=== PATIENT | male | born 1970 | race Caucasian/White ===

== ENCOUNTER 2021-08-02 17:22 | Emergency (ER) | payer MEDICARE, MEDICAID, SELFPAY ==
[2021-08-02 17:33] VITALS: BP 132/91; PULSE 85; RESP 18; TEMP 37.2; O2SAT 98
== END 2021-08-03 01:35 | disposition left against medical advice (07) ==
LOC: ANHED 18:02
PROVIDERS: PCP Internal Medicine
DX: Z53.21 Procedure and treatment not carried out due to patient leaving prior to being seen by health care provider (principal)
CPT/HCPCS: 99199

== ENCOUNTER 2021-08-04 08:37 | Emergency (ER) | payer MEDICARE, MEDICAID, SELFPAY ==
[2021-08-04 08:40] VITALS: BP 101/56; PULSE 63; RESP 18; TEMP 35.6; O2SAT 97
--- NOTE | 2021-08-04 09:42 | ED.NAVMDI ---
HPI - Nausea/Vomiting/Diarrhea General Chief complaint: Nausea/Vomiting/Diarrhea Stated complaint: DIARRHEA Time Seen by Provider: 08/04/21 09:33 Source: patient and old records reviewed Mode of arrival: wheelchair Limitations: no limitations History of Present Illness HPI Narrative: Patient is 50 years old white male presents with diarrhea started 4 days ago, was maximum 3 times a day earlier, yesterday once today nothing so far. Patient denies any fever, chills, nausea, vomiting, abdominal pain., Exposure to anybody have similar symptoms. Related Data Home Medications Medication Instructions Recorded Confirmed ergocalciferol (vitamin D2) 08/04/21 Allergies Allergy/AdvReac Type Severity Reaction Status Date / Time ampicillin Allergy Unknown Hives / Verified 12/17/18 11:51 Red Face Review of Systems Review of Systems: CONSTITUTIONAL: Denies fever, chills, or sweats. EYES: Denies visual changes, redness, or discharge. ENT: Denies rhinorrhea, congestion, sore throat, or otalgia. CARDIOVASCULAR: Denies chest pain, palpitations, or edema. RESPIRATORY: Denies cough or dyspnea. GASTROINTESTINAL: Diarrhea GENITOURINARY: Denies dysuria or hematuria. SKIN: Denies rash or itching. MUSCULOSKELETAL: Denies back pain, joint pain, or myalgia. NEUROLOGIC: Denies headache, numbness, or weakness. PSYCHIATRIC: Denies anxiety or depression. Exam Narrative: General appearance: Well-developed, well-nourished Skin: Normal color Head: Normocephalic, nontraumatic Eyes: Clear conjunctiva ENT: Oropharynx normal, ears normal, nose normal Neck: Supple, nontender Chest and respiratory: Airway patent, no respiratory distress, no accessory muscle use Heart: Regular rate/rhythm Abdomen: Soft, nontender, no organomegaly, quiet bowel sounds Vascular: Normal peripheral pulses, normal capillary refill. Musculoskeletal: Normal range of motion, nontender back Neurologic: Alert and oriented ?3, CARD SCRAPER is normal as tested, no gross motor deficit Course Vital Signs Vital signs: Vital Signs Temperature 35.6 C L 08/04/21 08:40 Pulse Rate 63 08/04/21 08:40 Respiratory Rate 18 08/04/21 08:40 Blood Pressure 101/56 L 08/04/21 08:40 Pulse Oximetry 97 08/04/21 08:40 Temperature 35.6 C L 08/04/21 08:40 Pulse Rate 63 08/04/21 08:40 Respiratory Rate 18 08/04/21 08:40 Blood Pressure 101/56 L 08/04/21 08:40 Pulse Oximetry 97 08/04/21 08:40 MDM - Nausea/Vomiting/Diarrhea MDM Narrative Medical decision making narrative: Patient presents with diarrhea, 2-3 times a day 4 days ago, yesterday once, today nothing. Blood work-up showed no significant abnormality to explain patient condition. Viral gastroenteritis is my concern. Discharge Plan Discharge Clinical Impression: Diarrhea Qualifiers: Diarrhea type: unspecified type Qualified Code(s): R19.7 - Diarrhea, unspecified Patient Disposition: Home, Self-Care Condition: Stable Instructions: Antibiotic Form, Acute Diarrhea (ED) Additional Instructions: , encourage fluid intake, return if symptoms are worsening , call your family physician for appointment, take Tylenol as as needed for aches and pain, continue home medications. Prescriptions: No Action ergocalciferol (vitamin D2) 1,250 mcg (50,000 unit) capsule RF: 0 Follow-up/Referrals: Robert,MD Pranav [Primary Care Provider] -
[2021-08-04 10:54] LABS: Basophils Absolute Auto 0.1 K/mm3 (0.0-0.1); Basophils Percent Auto 0.9 % (0.2-1.2); Eosinophils Absolute Auto 0.3 K/mm3 (0-0.3); Eosinophils Percent Auto 3.5 % (0-4.4); Hematocrit 38.4 % (42.0-52.0); Hemoglobin 13.4 g/dL (14.0-18.0); Immature Granulocyte Absolute 0.16 K/mm3 (0.00-0.031); Immature Granulocyte Percent A 2.1 % (0-0.5); Lymphocytes Absolute Auto 2.21 K/mm3 (0.9-3.2); Mean Corpuscular HGB Conc 34.9 g/dl (32-36); Mean Corpuscular Hemoglobin 32.8 pg (26-34); Mean Corpuscular Volume 94.1 fl (80-100); Mean Platelet Volume 9.8 fl (7.4-10.4); Monocytes Absolute Auto 0.7 K/mm3 (0.1-0.6); Monocytes Percent Auto 9.3 % (2.6-8.5); Neutrophils Absolute Auto 4.2 K/mm3 (1.3-6.7); Neutrophils Percent Auto 55.2 % (45.5-73.1); Platelet Count Result 254 k/mm3 (150-375); Red Blood Count 4.08 M/mm3 (4.6-6.20); Red Cell Distribution Width 12.3 % (11.5-14.5); White Blood Count 7.6 K/mm3 (4.5-10.0)
[2021-08-04 11:05] LABS: Alanine Aminotransferase 27 U/L (4-50); Alkaline Phosphatase 90 U/L (38-126); Anion Gap 9 mmol/L (8-16); Aspartate Amino Transferase 22 U/L (17-59); Bilirubin,Total 0.7 mg/dL (0.2-1.3); Blood Urea Nitrogen 11 mg/dL (9-20); Calcium 9.4 mg/dL (8.4-10.2); Carbon Dioxide 24 mmol/L (22-30); Chloride 106 mmol/L (98-107); Estimated CRCL calculation 174 ml/min; Estimated Glomerular Filt Rate > 60; Glucose 122 mg/dL (65-110); Potassium 3.4 mmol/L (3.4-5.0); Sodium 139 mmol/L (137-145)
[2021-08-04 11:30] VITALS: BP 102/68; PULSE 80; RESP 16; O2SAT 98
== END 2021-08-04 11:30 | disposition home or self-care (01) ==
PROVIDERS: Emergency Provider Emergency Medicine; PCP Internal Medicine
DX: R19.7 Diarrhea, unspecified (principal)
CPT/HCPCS: 36415; 80053; 85025; 99283

== ENCOUNTER 2021-08-10 10:18 | Outpatient (CLI) | payer MEDICARE, MEDICAID, SELFPAY ==
--- NOTE | ~2021-08-10 | CT_ITS ---
EXAMINATION: CT abdomen pelvis wo con DATE: 08/10/2021 11:20 INDICATION: Diarrhea, unspecified. TECHNIQUE: Computed tomography (CT) of the abdomen and pelvis was performed without intravenous contr ast. Automated exposure control and iterative reconstruction technique were employed. The dose-length product was 1062.30 mGy-cm. COMPARISON: CT abdomen and pelvis 10/16/2018 FINDINGS: The visualized portions of the lung bases demonstrate mild atelectasis. There are trace ple ural effusions. The heart size is normal. No pericardial effusion. The liver, gallbladder, spleen, pa ncreas, adrenal glands, and left kidney are normal. There is a 4 mm stone in right kidney. The bladde r is decompressed by a suprapubic catheter. There is chronic diffuse wall thickening of the bladder. The appendix is normal. The sigmoid colon is distended, consistent with adynamic ileus. There is a mo derate volume of stool in the colon. There is mild wall thickening of the rectum. There are no pathol ogically enlarged lymph nodes. There is no free intraperitoneal fluid. There is mild thoracolumbar sp ondylosis. IMPRESSION: 1. Mild wall thickening of the rectum, consistent with proctitis. Distended sigmoid colon, consistent with adynamic ileus. 2. Chronic diffuse bladder wall thickening, consistent with chronic cystitis versus neurogenic bladde r. Reviewed, dictated and finalized at location B. STRIAL RENDERER IMPRESSION: 1. Mild wall thickening of the rectum, consistent with proctitis. Distended sig moid colon, consistent with adynamic ileus. 2. Chronic diffuse bladder wall thickening, consistent with chronic cystitis ve rsus neurogenic bladder.
== END 2021-08-10 10:19 | disposition home or self-care (01) ==
PROVIDERS: PCP Internal Medicine; Visit Provider Internal Medicine
DX: R19.7 Diarrhea, unspecified (principal); M47.815 Spondylosis without myelopathy or radiculopathy, thoracolumbar region
CPT/HCPCS: 74176

== ENCOUNTER 2021-09-19 09:28 | Outpatient (CLI) | payer MEDICARE, MEDICAID, SELFPAY ==
[2021-09-19 12:24] LABS: Toxigenic C. Diff NEGATIVE (NEGATIVE)
== END 2021-09-19 09:29 | disposition home or self-care (01) ==
LOC: ANHLAB 09:30
PROVIDERS: PCP Internal Medicine; Visit Provider Nurse Practitioner Family
DX: R19.7 Diarrhea, unspecified (principal)
CPT/HCPCS: 87045; 87177; 87209; 87427; 87493

== ENCOUNTER 2021-09-29 02:10 | Day surgery (SDC) | payer MEDICARE, MEDICAID, SELFPAY ==
[2021-09-14 13:54] VITALS: BMI 32.5
[2021-09-29 11:34] VITALS: BP 100/73; PULSE 57; RESP 20; TEMP 36.6; O2SAT 97
[2021-09-29] MEDS: LACTATED RINGERS 1,000 ML 150 ML IV CONT (11:49)
--- NOTE | 2021-09-29 12:08 | WPDHPUPDATE1 ---
History and Physical Update Update Date/Time: 09/29/21 12:08 History and Physical has been reviewed, including an updated exam of the patient. There are NO changes in the patient's condition. Risks, benefits, and alternatives have been discussed and questions answered. Patient agrees to proceed with procedure.
--- NOTE | 2021-09-29 12:13 | P.PNAN_ITS ---
Anes - Initial Pre Proc Eval Procedure: Operation Date: 09/29/21 12:30 Proposed Procedures p Colonoscopy - Tom Beebe MD Date/Time: 09/29/21 12:13 Surgeon: Tom Beebe MD Pre Op Diagnosis: diarrhea, proctitis Patient Data Age: 50 Gender: M Height: 1.75 m Weight: 100 kg Last Vital Signs Temp 36.6 C 09/29/21 11:34 Pulse 57 L 09/29/21 11:34 Resp 20 09/29/21 11:34 BP 100/73 09/29/21 11:34 Pulse Ox 97 09/29/21 11:34 Allergies Allergy/AdvReac Type Severity Reaction Status Date / Time No Known Allergies Allergy Verified 09/29/21 11:33 Home Medications Medication Instructions Recorded Confirmed Type ergocalciferol (vitamin D2) 1 mcg PO MONTHLY 08/04/21 09/14/21 History polyethylene glycol 3350 17 17 g PO DAILY 09/13/21 09/14/21 History gram/dose oral powder sennosides 8.6 mg-docusate sodium 1 tab-cap PO QHS 09/13/21 09/14/21 History 50 mg capsule sod picosulf 10 mg-magnes 3.5 160 ml PO DAILY #320 ml 09/26/21 Rx gram-citric 12 gram/160 mL oral solution Patient hx anesthesia problems: none Family hx anesthesia problems: none Results Review: All pre-operative results and documents have been reviewed as part of the pre-operative evaluation. [facility] Past Medical History Medical History (Updated 09/29/21 @ 09:11 by Bill Boyer DO) GERONIMO (obstructive sleep apnea) Quadriplegia and quadriparesis Family History Family History (Updated 09/13/21 @ 10:35 by Mellissa Abdullahi CMA) Grandparent Carcinoma of colon Social History Social History (Updated 09/13/21 @ 10:35 by Mellissa Abdullahi CMA) Smoking packs per day: 0.5 Smoking cigarettes per day: 10.0 Years smoked: 3 Smoking pack-years: 1.50 Smoking status: Never smoker Tobacco type: cigarettes Alcohol intake: current Drinks per week: 12 Alcohol use details: social Substance use: never Substance use type: does not use Living arrangements: with family Spiritual care concerns: No Anes - Eval Final PreProcedure Day of Procedure 09/29/21 12:13 Patient weight: obese Heart: regular rate and rhythm Lungs: clear to auscultation and normal air movement Airway: Mallampati scale class II Neurological: alert and oriented Last oral intake: >/= 8 hours ASA classification: IV Emergent: no Anesthetic plan: proceed Anesthesia type and monitoring: general GIVS and standard monitoring Results Review: All pre-operative results and documents have been reviewed as part of the pre-operative evaluation. Informed Consent: The patient's anesthetic plan and its attendant risks and benefits were discussed with the patient/family/POA. Questions were solicited and answers provided to the satisfaction of the patient/family/POA.
[2021-09-29 12:46] VITALS: BP 85/57; PULSE 76; RESP 19; O2SAT 94
[2021-09-29 12:56] VITALS: BP 102/68; PULSE 65; RESP 17; O2SAT 98
[2021-09-29 13:06] VITALS: BP 94/62; PULSE 64; RESP 18; O2SAT 99
== END 2021-09-29 13:31 | disposition home or self-care (01) ==
PROVIDERS: PCP Internal Medicine; Visit Provider Internal Medicine Gastroenterology
PROC: 0DJD8ZZ Inspection of Lower Intestinal Tract, Via Natural or Artificial Opening Endoscopic (ICD-10-PCS; CPT 45378; principal; 2021-09-29 12:30)
DX: Z12.11 Encounter for screening for malignant neoplasm of colon (principal); D12.8 Benign neoplasm of rectum; G47.33 Obstructive sleep apnea (adult) (pediatric); G82.50 Quadriplegia, unspecified; Z87.891 Personal history of nicotine dependence; E66.9 Obesity, unspecified; Z68.32 Body mass index [BMI] 32.0-32.9, adult
CPT/HCPCS: 45385; 88305; J2704; J7120

== ENCOUNTER 2022-01-17 09:41 | Emergency (ER) | payer MEDICARE, MEDICAID, SELFPAY ==
[2022-01-17] VITALS (43 sets, daily range): BP systolic 90–151; BP diastolic 59–137; PULSE 45–78; RESP 8–19; TEMP 37.1; O2SAT 96–100
--- NOTE | ~2022-01-17 | CT_ITS ---
EXAMINATION: CT brain wo con DATE: 01/17/2022 10:02 INDICATION: Headache. TECHNIQUE: Computed tomography (CT) of the head was performed without intravenous contrast. The mA wa s adjusted according to patient size. Iterative reconstruction technique was employed. The dose-lengt h product was 605.33 mGy-cm. COMPARISON: None FINDINGS: There is no intracranial hemorrhage, acute infarction, or abnormal intracranial mass lesion . The ventricles are normal in size. The paranasal sinuses are clear. The mastoid air cells are girma l. IMPRESSION: 1. Normal brain. Reviewed, dictated and finalized at location A. IMPRESSION: 1. Normal brain.
[2022-01-17 11:13] LABS: Basophils Percent Auto 0.3 % (0.2-1.2); Eosinophils Absolute Auto 0.1 K/mm3 (0-0.3); Eosinophils Percent Auto 1.3 % (0-4.4); Hematocrit 41.7 % (42.0-52.0); Hemoglobin 14.5 g/dL (14.0-18.0); Immature Granulocyte Absolute 0.04 K/mm3 (0.00-0.031); Immature Granulocyte Percent A 0.4 % (0-0.5); Lymphocytes Absolute Auto 1.66 K/mm3 (0.9-3.2); Lymphocytes Percent Auto 16.9 % (18.3-44.2); Mean Corpuscular HGB Conc 34.8 g/dl (32-36); Mean Corpuscular Hemoglobin 32.9 pg (26-34); Mean Corpuscular Volume 94.6 fl (80-100); Mean Platelet Volume 9.8 fl (7.4-10.4); Monocytes Absolute Auto 0.9 K/mm3 (0.1-0.6); Monocytes Percent Auto 9.3 % (2.6-8.5); Neutrophils Absolute Auto 7.1 K/mm3 (1.3-6.7); Neutrophils Percent Auto 71.8 % (45.5-73.1); Platelet Count Result 211 k/mm3 (150-375); Red Blood Count 4.41 M/mm3 (4.6-6.20); Red Cell Distribution Width 12.6 % (11.5-14.5); White Blood Count 9.8 K/mm3 (4.5-10.0)
[2022-01-17 11:25] LABS: Alanine Aminotransferase 47 U/L (6-50); Albumin Level 4.3 g/dL (3.5-5.1); Alkaline Phosphatase 107 U/L (38-126); Anion Gap 10 mmol/L (8-16); Aspartate Amino Transferase 34 U/L (17-59); Bilirubin,Total 0.9 mg/dL (0.2-1.3); Blood Urea Nitrogen 12 mg/dL (9-20); Calcium 9.1 mg/dL (8.4-10.2); Carbon Dioxide 23 mmol/L (22-30); Chloride 105 mmol/L (98-107); Estimated CRCL calculation 162 ml/min; Estimated Glomerular Filt Rate > 60; Glucose 119 mg/dL (65-110); Potassium 3.9 mmol/L (3.4-5.0); Sodium 138 mmol/L (137-145)
[2022-01-17 11:30] LABS: Add Urine Microscopic? YES; Appearance Urine Cloudy (Clear); Bilirubin Urine Negative (Negative); Blood Urine 1+ (Negative); Color Urine Yellow (Yellow); Glucose Urine UA Negative (Negative); Ketones Urine Negative (Negative); Leukocyte Esterase Ur 3+ LEU/UL (Negative); Nitrate Urine Negative (Negative); Protein Urine 2+ mg/dL (Negative); Specific Grav Ur 1.015 (1.001-1.035); Urobilinogen Urine 0.2 mg/dL (<2.0); pH Urine 7.5 (5.0-9.0)
[2022-01-17 11:34] LABS: Bacteria Urine Trace /hpf; Mucus Urine Rare /lpf; RBC Urine 21-50 /hpf (0-2); Squamous Epithelial Cell Urine Few /hpf (Few); WBC Urine >75 /hpf
--- NOTE | 2022-01-17 12:31 | PC.NURSE ---
ERP aware of Pt. blood pressure being low. No new orders at this time. Pt. denies any complaints.
--- NOTE | 2022-01-17 14:07 | ED.GENADULT ---
HPI - General Adult General Chief complaint: Recheck/Abnormal Lab/Rx Stated complaint: htn, headache Time Seen by Provider: 01/17/22 09:49 Source: patient Mode of arrival: EMS Limitations: no limitations History of Present Illness HPI narrative: 51-year-old with a history of quadriplegia from C 5 - C6 fx almost 6 yrs here with complaints of diffuse headache, elevated blood pressure. Upon arrival to the ER patient stated his headache is much better he denied any nausea, vomiting or blurred vision. No history of chest pain or shortness of breath. No history of trauma. EMS also states that his blood pressure was elevated and he has no history of hypertension Onset (ago): hour(s) (1) Pain Consistency: now resolved Exacerbating factors: none Associated symptoms: denies other symptoms Treatments prior to arrival: none Related Data Home Medications Medication Instructions Recorded Confirmed ergocalciferol (vitamin D2) 1,250 1 mcg PO MONTHLY 08/04/21 09/14/21 mcg (50,000 unit) capsule polyethylene glycol 3350 17 17 g PO DAILY 09/13/21 09/14/21 gram/dose oral powder (Miralax) sennosides 8.6 mg-docusate sodium 1 tab-cap PO QHS 09/13/21 09/14/21 50 mg capsule (Senna Plus) Allergies Allergy/AdvReac Type Severity Reaction Status Date / Time No Known Allergies Allergy Verified 09/29/21 11:33 Review of Systems Review of Systems: All systems reviewed & are unremarkable except as noted in HPI and below Constitutional: Constitutional: Reports no additional constitutional complaints Eyes: Eyes: Reports no additional eye complaints ENT: Reports system reviewed and no additional complaints, except as documented Cardiovascular: Cardiovascular: Reports no additional cardiovascular complaints Respiratory: Respiratory: Reports no additional respiratory complaints Gastrointestinal: Gastrointestinal: Reports no additional gastrointestinal complaints Musculoskeletal: Musculoskeletal: Reports no additional musculoskeletal complaints Neurologic: Reports system reviewed and no additional complaints, except as documented Psychiatric: Psychiatric: Reports no additional psychiatric complaints [facility] Past Medical History Medical History (Updated 01/17/22 @ 14:14 by Edwin David MD) GERONIMO (obstructive sleep apnea) Quadriplegia and quadriparesis Family History Family History (Updated 09/13/21 @ 10:35 by Mellissa Abdullahi CMA) Grandparent Carcinoma of colon Social History Social History (Updated 09/13/21 @ 10:35 by Mellissa Abdullahi CMA) Smoking packs per day: 0.5 Smoking cigarettes per day: 10.0 Years smoked: 3 Smoking pack-years: 1.50 Smoking status: Never smoker Tobacco type: cigarettes Alcohol intake: current Drinks per week: 12 Alcohol use details: social Substance use: never Substance use type: does not use Spiritual care concerns: No Exam Narrative: GENERAL: Well-appearing, well-nourished, and in no acute distress. HEAD: Normocephalic, atraumatic. EYES: PERRLA and EOMI. ENT: Nares clear, no rhinorrhea or epistaxis. Mucous membranes moist. NECK: Supple. CHEST: Clear to auscultation. No respiratory distress. HEART: Regular rate and rhythm. No murmur heard. Normal peripheral pulses. ABDOMEN: Soft, nontender, nondistended, normal active bowel sounds. EXTREMITIES:Limited ROM in the upper ext.. SKIN: Warm, dry, no rash. NEURO: No focal deficits. Alert and oriented x3. PSYCH: Normal mood and affect. Course Course Emergency Course: Patient feeling much better. Informed him about the lab work, CT findings. His headache is much resolved. Advised him to continue his home medications, follow-up with his primary doctor. They feel comfortable going home. Vital Signs Vital signs: Vital Signs Temperature 37.1 C 01/17/22 09:43 Pulse Rate 46 L 01/17/22 09:43 Respiratory Rate 16 01/17/22 09:43 Blood Pressure 151/76 H 01/17/22 09:43 Pulse Oximetry 100 06
== END 2022-01-17 14:30 | disposition home or self-care (01) ==
PROVIDERS: Emergency Provider Family Medicine; PCP Internal Medicine
DX: R51.9 Headache, unspecified (principal); G82.50 Quadriplegia, unspecified; S14.109S Unspecified injury at unspecified level of cervical spinal cord, sequela; S12.400S Unspecified displaced fracture of fifth cervical vertebra, sequela; S12.500S Unspecified displaced fracture of sixth cervical vertebra, sequela; G47.33 Obstructive sleep apnea (adult) (pediatric); F17.210 Nicotine dependence, cigarettes, uncomplicated; R82.998 Other abnormal findings in urine; X58.XXXS Exposure to other specified factors, sequela
CPT/HCPCS: 36415; 70450; 74176; 80053; 81001; 85025; 87077; 87086; 87147; 87181; 87186; 99284; A9270

== ENCOUNTER 2022-01-17 20:55 | Emergency (ER) | payer MEDICARE, MEDICAID, SELFPAY ==
--- NOTE | ~2022-01-17 | CT_ITS ---
EXAMINATION: CT abdomen pelvis wo con DATE: 01/17/2022 22:25 INDICATION: change in bowel habits. concern for obstruction TECHNIQUE: Computed tomography (CT) of the abdomen and pelvis was performed without intravenous contr ast. Automated exposure control and iterative reconstruction technique were employed. The dose-length product was 751.51 mGy-cm. COMPARISON: 08/10/2021. FINDINGS: Lower thorax: Obscured by motion, no gross abnormality. Liver: Normal. Biliary/Gallbladder: Contracted gallbladder No bile duct dilation. Pancreas: No mass or duct dilation. Spleen: Normal. Adrenals:No mass. Kidneys: Punctate nonobstructive right calcification, otherwise no mass or hydronephrosis GI tract: No small or large bowel dilation. Normal appendix. The rectum is dilated to 7.8 cm by forme d stool, with wall thickening of the dilated portion of bowel but no surrounding inflammatory change. Mesentery/Peritoneum: No ascites, mass, or free air. Retroperitoneum: No mass. Pelvis: Suprapubic catheter. The bladder is decompressed. Marked bladder wall thickening surrounding inflammatory change that extends into the distal ureters. Soft Tissues: Soft tissues and body wall unremarkable. Bones: No acute osseous finding. Stable displaced coccyx. Stable moderate right hip effusion with dejesus rrounding dystrophic calcification. IMPRESSION: Fecal impaction, with findings that can be seen in early stercoral colitis. Indwelling suprapubic cat heter, with bladder inflammation. Ascending infection is not excluded. Reviewed, dictated and finalized at location K. IMPRESSION: Fecal impaction, with findings that can be seen in early stercoral colitis. Ind welling suprapubic catheter, with bladder inflammation. Ascending infection is not excluded.
[2022-01-17 21:16] VITALS: BP 92/58; PULSE 74; RESP 16; TEMP 36.9; O2SAT 98
--- NOTE | 2022-01-17 21:43 | PC.NURSE ---
patient and state that patient was seen today, but he shouldn't have been sent home .
--- NOTE | 2022-01-17 22:03 | ED.GENADULT ---
HPI - General Adult General Chief complaint: Recheck/Abnormal Lab/Rx Stated complaint: high blood pressure Time Seen by Provider: 01/17/22 21:28 History of Present Illness HPI narrative: 51-year-old male presenting to the emergency department for evaluation of an episode of elevated blood pressure after being discharged from the emergency department for evaluation of headache and hypertension. Patient was having an elevated blood pressure this morning and was evaluated in the emergency department. Patient had a negative head CT and patient's blood pressure improved and patient's headache resolved. After going home patient states he did have another episode of hypertension and subsequent headache but no longer has headache and has hypertension has once again resolved. Family was also concerned due to a change in his bowel habits. Related Data Home Medications Medication Instructions Recorded Confirmed ergocalciferol (vitamin D2) 1,250 1 mcg PO MONTHLY 08/04/21 09/14/21 mcg (50,000 unit) capsule polyethylene glycol 3350 17 17 g PO DAILY 09/13/21 09/14/21 gram/dose oral powder (Miralax) sennosides 8.6 mg-docusate sodium 1 tab-cap PO QHS 09/13/21 09/14/21 50 mg capsule (Senna Plus) atorvastatin 10 mg tablet tablet 01/17/22 ezetimibe 10 mg tablet tablet 01/17/22 sod picosulf 10 mg-magnes 3.5 ml PO 01/17/22 gram-citric 12 gram/160 mL oral solution (Clenpiq) Allergies Allergy/AdvReac Type Severity Reaction Status Date / Time No Known Allergies Allergy Verified 01/17/22 21:19 Review of Systems Review of Systems: CONSTITUTIONAL: Denies fever, chills, or sweats. EYES: Denies visual changes, redness, or discharge. ENT: Denies rhinorrhea, congestion, sore throat, or otalgia. CARDIOVASCULAR: Denies chest pain, palpitations, or edema. RESPIRATORY: Denies cough or dyspnea. GASTROINTESTINAL: Denies abdominal pain, nausea, vomiting, or diarrhea. GENITOURINARY: Denies dysuria or hematuria. SKIN: Denies rash or itching. MUSCULOSKELETAL: Denies back pain, joint pain, or myalgia. NEUROLOGIC: Intermittent headache PSYCHIATRIC: Denies anxiety or depression. [facility] Past Medical History Medical History (Updated 01/19/22 @ 00:00 by Background Daemon) GERONIMO (obstructive sleep apnea) Quadriplegia and quadriparesis Family History Family History (Updated 09/13/21 @ 10:35 by Mellissa Abdullahi CMA) Grandparent Carcinoma of colon Social History Social History (Updated 09/13/21 @ 10:35 by Mellissa Abdullahi CMA) Smoking packs per day: 0.5 Smoking cigarettes per day: 10.0 Years smoked: 3 Smoking pack-years: 1.50 Smoking status: Never smoker Tobacco type: cigarettes Alcohol intake: current Drinks per week: 12 Alcohol use details: social Substance use: never Substance use type: does not use Spiritual care concerns: No Exam Narrative: APPEARANCE: Well appearing, no pain, no distress, well-nourished. HEAD: normocephalic, atraumatic. EYES: PERRLA/EOMI, conjunctivae clear. NECK: Supple. No adenopathy, no masses. RESPIRATORY: Airway patent, respirations nonlabored. Clear to auscultation bilaterally, no rales, rhonchi, wheezing. CARDIOVASCULAR: Regular rate and rhythm without murmurs rubs or gallops. ABDOMINAL: Soft, normal bowel sounds MUSCULOSKELETAL: At baseline NEURO: Patient at his neuro baseline SKIN: Warm, dry. Normal Color Course Course Emergency Course: Patient's abdomen CT did show evidence of stool within the colon. No evidence of obstruction. Patient does get daily bowel protocols where he gets MiraLAX and a suppository. Patient was also encouraged with close follow-up with his primary care physician regarding his hypertension. Initially patient's UA was being cultured. Due to the CT showing some evidence of cystitis patient was started on antibiotics in the emergency department. Both patient and were comfortable with the plan for discharge and close follow-up. Vital
--- NOTE | 2022-01-17 22:59 | PC.NURSE ---
Assuming care of pt.
[2022-01-17] MEDS: CEPHALEXIN 250 MG CAPSULE PO (23:37)
[2022-01-17 23:53] VITALS: BP 124/99; PULSE 71; RESP 18; TEMP 36.6; O2SAT 100
== END 2022-01-17 23:53 | disposition home or self-care (01) ==
PROVIDERS: Emergency Provider Emergency Medicine; PCP Internal Medicine
DX: N39.0 Urinary tract infection, site not specified (principal); G47.33 Obstructive sleep apnea (adult) (pediatric); G82.50 Quadriplegia, unspecified; F17.210 Nicotine dependence, cigarettes, uncomplicated
CPT/HCPCS: 74176; 99284; A9270

== ENCOUNTER 2023-04-05 01:59 | Emergency (ER) | payer MEDICARE, MEDICAID, SELFPAY ==
[2023-04-05 02:01] VITALS: BP 98/60; PULSE 86; RESP 16; TEMP 36.6; O2SAT 98
[2023-04-05 03:44] VITALS: BP 120/74; PULSE 70; RESP 15; O2SAT 100
--- NOTE | 2023-04-05 06:15 | PC.NURSE ---
pt informed staff that he was leaving, stated reason, wait time . pt encouraged to speak to follow up withj pcp, or if s/s warranted to return to ED. pt agreeable to this
== END 2023-04-05 06:17 | disposition left against medical advice (07) ==
PROVIDERS: PCP Internal Medicine
DX: R50.9 Fever, unspecified (principal)
CPT/HCPCS: 99199

== ENCOUNTER 2024-07-03 16:02 | Outpatient (CLI) | payer MEDICARE, MEDICAID, SELFPAY ==
[2024-07-03 19:48] LABS: Basophils Percent Auto 0.5 % (0.2-1.2); Eosinophils Absolute Auto 0.2 K/mm3 (0-0.3); Eosinophils Percent Auto 3.9 % (0-4.4); Hematocrit 37.8 % (42.0-52.0); Hemoglobin 13.3 g/dL (14.0-18.0); Immature Granulocyte Absolute 0.02 K/mm3 (0.00-0.031); Immature Granulocyte Percent A 0.3 % (0-0.5); Lymphocytes Absolute Auto 1.71 K/mm3 (0.9-3.2); Lymphocytes Percent Auto 27.6 % (18.3-44.2); Mean Corpuscular HGB Conc 35.2 g/dl (32-36); Mean Corpuscular Hemoglobin 33.2 pg (26-34); Mean Corpuscular Volume 94.3 fl (80-100); Mean Platelet Volume 10.3 fl (7.4-10.4); Monocytes Absolute Auto 0.8 K/mm3 (0.1-0.6); Monocytes Percent Auto 13.1 % (2.6-8.5); Neutrophils Absolute Auto 3.4 K/mm3 (1.3-6.7); Neutrophils Percent Auto 54.6 % (45.5-73.1); Platelet Count Result 203 k/mm3 (150-375); Red Blood Count 4.01 M/mm3 (4.6-6.20); Red Cell Distribution Width 12.4 % (11.5-14.5); White Blood Count 6.2 K/mm3 (4.5-10.0)
[2024-07-03 20:13] LABS: Alanine Aminotransferase 75 U/L (6-50); Albumin Level 4.4 g/dL (3.5-5.1); Alkaline Phosphatase 96 U/L (38-126); Anion Gap 8 mmol/L (4-12); Aspartate Amino Transferase 73 U/L (17-59); Bilirubin,Total 0.8 mg/dL (0.2-1.3); Blood Urea Nitrogen 14 mg/dL (9-20); Calcium 9.6 mg/dL (8.4-10.2); Carbon Dioxide 27 mmol/L (22-30); Chloride 103 mmol/L (98-107); Estimated Glomerular Filt Rate > 60; Glucose 115 mg/dL (65-110); Potassium 4.2 mmol/L (3.4-5.0); Sodium 138 mmol/L (137-145)
[2024-07-03 20:17] LABS: Erythrocyte Sedimentation Rate 31 mm/hr (0-20)
== END 2024-07-03 16:03 | disposition home or self-care (01) ==
LOC: ANHGOSHLAB 16:04
PROVIDERS: PCP Internal Medicine; Visit Provider Internal Medicine Infectious Disease
DX: N39.0 Urinary tract infection, site not specified (principal)
CPT/HCPCS: 36415; 80053; 85025; 85652

== ENCOUNTER 2024-10-28 15:08 | Outpatient (CLI) | payer MEDICARE, MEDICAID, SELFPAY ==
--- OUTSIDE RECORDS SUMMARY | 2024-10-28 16:41 | XMS_ITS | Encounter Summary ---
Author Organization [facility] Address [address] [place] [address] Phone Care Team Providers Care Engineer Process Name Role Phone Pranav Jones MD Primary Care Provider + [phone] Sandra Frazier OT Unavailable Unavailab Madhuri De Leon DPT Unavail able Encounter Details Date Type Department Care Team (Late st Contact Info) Description 03/22/[address] [place] [address] Piyush Andrade MD [phone] [address] Social History Tobacco Use Types Packs/Day Years Used Date Smoking Tobacco: Former Cigarettes Smokeless Tobacco: Never Alcohol Use Standard Drinks/Week Comments Defer 0 (1 standard drink = 0.6 oz pur e alcohol) Sex and Gender Information Value Date Recorded Sex Assigned at Not on file Legal Sex Male 8:11 AM HEAD CHARGER Gender Identity Not on file Sexual Orientation Not on file documented as of this encounter Plan of Treatment Not on file documented as of this encounter Visit Diagnoses Not on filedocumented in this encounter Additional Health Concerns Infection Onset Date Last Indicated Resolved Time Diarrhea 09/17/2023 09/17/2023 10/01/2023 3:05 AM HEAD CHARGER COVID: Suspected 10/09/2023 10/09/2023 10/09/2023 6:32 PM CDT C. difficile suspected 10/09/2023 10/09/202310/11 3:07 AM CDT C. difficile suspected 11/25/2023 11/25/202311/27 3:05 AM CDT documented as of this encounter Care Teams Engineer Process Relationship Specialty Start Date End Date Pranav Jones MD PCP - General 01/10/17 Sandra Frazier OT Occupational Therapist Occupational Therapy 01/07/18 Madhuri Abdul, YENNIFER [id number] [place] [address] Physical Therapist Physical Therapy 12/20/21 documented as of this encounter
--- OUTSIDE RECORDS SUMMARY | 2024-10-28 16:41 | XMS_ITS | Encounter Summary ---
Author Organization [facility] Address [address] [place] [address] Care Team Providers Care Classified Advertising Clerk Name Role Phone Pranav Jones MD Primary Care Provider + [phone] Sandra Frazier OT Unavailable Unavailab Madhuri De Leon DPT Unavail able Reason for Visit * Reason Comments Urinary Symptom Encounter Details Date Type Department Care Team (Late st Contact Info) Description 10/28/2024 2:15 PM CDT Office Visit [facility] [address] [id number] Rosa Vieira, CUSTOMER TECHNICAL SERVICES MANAGER [address] [place] [address] [address] [place] [address] Acute cystitis with hematuria (Primary Dx); History of recurrent UTIs Social History Tobacco Use Types Packs/Day Years Used Date Smoking Tobacco: Former Cigarettes Smokeless Tobacco: Never Alcohol Use Standard Drinks/Week Comments Defer 0 (1 standard drink = 0.6 oz pur e alcohol) [facility] Utilities Answer Date Recorded In the past 12 months has [employer], gas, oil, or water company threatened to shut off services in your home? No 05/05/2024 Social Connection and Isolat ion Panel [NHANES] Answer Date Recorded In a typical week, how many times do you talk on the phone with family, friends, or neighbors? More than three times a week 05/05/2024 How often do you get togethe r with friends or relatives? More than three times a week 05/05/2024 How often do you attend chur ch or restoration services? Never 05/05/2024 Do you belong to any clubs o r organizations such as yarsanism groups, unions, fraternal or athletic groups, or school groups? No 05/05/2024 How often do you attend meet ings of the clubs or organizations you belong to? Never 05/05/2024 Are you , , di vorced, , never , or living with a partner? Never 05/05/2024 AUDIT-C Answer Date Recorded Q1: How often do you have a drink containing alcohol? 4 or more times a week 11/25/2023 Q2: How many drinks containi ng alcohol do you have on a typical day when you are drinking? 1 or 2 Q3: How often do you have si x or more drinks on one occasion? Never 11/25/2023 Overall Financial Resource Strain (CARDIA) Answe r Date Recorded How hard is it for you to pa y for the very basics like food, housing, medical care, and heating? Not hard at all 05/05/2024 Hunger Vital Sign Answer Date Recorded Within the past 12 months, y ou worried that your food would run out before you got the money to buy more. Never true 05/05/20 24 Within the past 12 months, t he food you bought just didn't last and you didn't have money to get more. Never true 05/05/2024 PRAPARE - Transportation Answer Date Re corded In the past 12 months, has l ack of transportation kept you from medical appointments or from getting medications? No 01/2024 In the past 12 months, has l ack of transportation kept you from meetings, work, or from getting things needed for daily living? No 05/05/2024 Housing Stability Vital Sign Answer Jori e Recorded In the last 12 months, was t here a time when you were not able to pay the mortgage or rent on time? No 11/26/2023 In the last 12 months, how many places have you lived? 1 11/26/2023 In the last 12 months, was t here a time when you did not have a steady place to sleep or slept in a retirement (including now)? No 11/26/2023 Housing Stability Vital Sign Answer Jori e Recorded In the last 12 months, was t here a time when you were not able to pay the mortgage or rent on time? No 05/05/2024 In the past 12 months, how m any times have you moved where you were living? 1 05/05/2024 At any time in the past 12 m [facility], were you homeless or living in a retirement (including now)? No 05/05/2024 Personal Safety Answer Date Recorded Have you ever been in or are you currently in a harmful physical or emotional relationship or is someone making you feel afraid or unsafe? 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 Gender Identity Not on file Sexual Orientation Not on file documented as of this encounter Last Filed Vital Signs Vital Sign Reading Time Taken Comments Blood Pressure 128/68 10/28/2024 2:20 PM CDT Pulse 65 10/28/2024 2:20 PM CDT Temperature 36.4 C (97.5 F) 10/28/2024 2:20 PM CDT Respiratory Rate 20 10/28/2024 2:20 PM CDT Oxygen Saturation 99% 10/28/2024 2:2 0 PM CDT Inhaled Oxygen Concentration - - Weight 95.3 kg (210 lb) 10/28/2024 2:20 PM CDT Wheelchair bound, Patient reports Height - - Body Mass Index 31.01 06/13/2024 1:03 PM OPTICAL DESIGNER documented in this encounter Ordered Prescriptions Prescription Sig Dispense Quantity Refills Last Filled Start Date End Date fosfomycin (MONUROL) 3 gram packetIndications:U rinary Tract/Genitourinary Infection Take 3 g by mouth once for 1 dose 3 g 10/28/2024 10/28/2024 documented in this encounter Progress Notes * Rosa Vieira NP - 10/28/2024 2:15 PM CDT Images from the original note were not included. Subjective/Objective Patient ID: David James is a 53 y.o. male. Chief Complaint Urinary Symptom Patient presents to the clinic with reports of odor to urine and cloudy urine for the past 2 days. Denies fevers, vomiting, rash, and seeing blood in urine. Patient is a quadriplegic with a suprapubic catheter. Patient's last Urinary tract infection was noted June 18, 2024. He has taken no [id number] medications for his symptoms. Review of Systems Constitutional: Negative for chills and fever. Respiratory: Negative. Cardiovascular: Negative. Gastrointestinal: Negative for abdominal pain, nausea and vomiting. Genitourinary: Negative for decreased urine volume, difficulty urinating, dysuria, flank pain, frequency, genital sores, hematuria, penile discharge, penile pain, penile swelling, scrotal swelling, testicular pain and urgency. Cloudy urine and odor to urine Musculoskeletal: Negative for gait problem. Neurological: Negative for headaches. Physical Exam Vitals reviewed. Constitutional: General: He is not in acute distress. Appearance: Normal appearance. He is not ill-appearing. Cardiovascular: Rate and Rhythm: Normal rate and regular rhythm. Pulmonary: Effort: Pulmonary effort is normal. Breath sounds: Normal breath sounds. Abdominal: General: Bowel sounds are normal. There is no distension. Palpations: Abdomen is soft. Tenderness: There is no abdominal tenderness. There is no right CVA tenderness or left CVA tenderness. Skin: General: Skin is warm. Neurological: Mental Status: He is alert and oriented to person, place, and time. Vitals: 10/28/24 1420 BP: 128/68 Pulse: 65 Resp: 20 Temp: 36.4 ??C (97.5 ??F) TempSrc: Oral SpO2: 99% Weight: 95.3 kg (210 lb) Assessment/Plan # acute cystitis with hematuria --start Fosfomycin --Discussed importance of compliance of antibiotics and possibility of change depending on culture results and susceptibilities --start Pyridium, discussed side effects specifically urine discoloration --likely not pyelo given no CVA tenderness; likely not calculi 2/2 absence of pain, dehydration --avoid alcohol, caffeine and citrus juices as this can cause irritation --monitor urine for foul odor, color change, hematuria, cloudiness, change in frequency or urgency --symptoms warranting ED presentation: chest tightness, SOB, inability to maintain oral intake, confusion, fever greater than 100.9 ?? for more than 4 hours w/o improvement w/ antipyretics --f/u with PCP if symptoms do not improve in 5-7 days Diagnoses and all orders for this visit: Acute cystitis with hematuria (Primary) - Urine culture Urine, suprapubic catheter; Future - POCT urinalysis dipstick - fosfomycin (MONUROL) 3 gram packet; Take 3 g by mouth once for 1 dose History of recurrent UTIs - fosfomycin (MONUROL) 3 gram packet; Take 3 g by mouth once for 1 dose Recent Results (from the past 4 hours) POCT urinalysis dipstick Collection Time: 10/28/24 2:34 PM Result Value Ref Range Color, Urine, POC Yellow Clarity, ur, POC Cloudy (A) Clear Glucose, ur, POC Negative Negative MG/DL Bilirubin, ur, POC Negative Negative, Small, Moderate, Large Ketones, ur, POC Negative Negative Specific [place], POC 1.020 1.003 - 1.030 Blood, ur, POC Hemolyzed, trace (A) Negative pH, ur, POC 6.0 5.0 - 8.0 Protein, ur, POC Negative Negative Urobilinogen, urine, POC 0.2 0.2 - 1.0 mg/dL Nitrite, ur, POC Negative Negative Leukocytes, ur, POC Small (A) Negative Lot Number [id number] Patient Education: Treatment of urinary symptoms: Take your prescribed antibiotic until it is gone. It is important to read the information provided by your pharmacist about the medications you are being prescribed. -You can take AZO (over the counter) for urinary pain- use directed per package instructions- Be aware this will turn your urine orange. To prevent UTI in the future: Increase your water intake to help flush bacteria from your bladder. Urine should be clear or nearly clear. Attempt to empty your bladder every 2-3 hours and do not hold urine for long periods of time. Make sure to always wipe from front to back after urinating. Avoid citrus juices, caffeine, alcohol, and intercourse (bladder irritants) until your symptoms resolve and treatment is complete. Void before and after intercourse. Avoid tight-fitting jeans as they can trap moisture and help bacteria grow. Cotton underwear and loose-fitting clothes should be worn. Call your PRIMARY CARE PROVIDER should your symptoms fail to improve or worsen. GO TO ER IMMEDIATELY WITH HIGH FEVER, BACK OR FLANK PAIN, NEW ONSET OF BLOOD IN URINE, OR ANY WORSENING OF CURRENT SYMPTOMS Seek care (go to Urgent Care or ER) immediately if: You are urinating very little or not at all. You are vomiting. You have a high fever with shaking chills. You have side or back pain that gets worse. Contact your primary care doctor or ATTORNEY RECRUITER if: You have a fever. You have questions or concerns about your condition or care Disposition Treatment plan including expectations, follow up, and return precautions discussed with patient/parent, verbalizes understanding. Medication dosage, use, and potential adverse reactions discussed with patient/parent. Advised to follow up with PCP if symptoms do not resolve as expected or sooner if condition worsens. Signs/symptoms warranting ER evaluation reviewed. Patient and/or guardian was given an opportunity to ask questions, questions answered. Rosa Vieira NP 10/28/24 2:39 PM This office note has been partially dictated using [employer] software, and as a result portions of the record may have been created with this software. Occasional wrong-word or '[id number]' substitutions may have occurred due to the inherent limitations of voice recognition software. Read the chartcarefully and recognize, using context, where substitutions have occurred. documented in this encounter Plan of Treatment Scheduled Orders Name Type Priority Associated Diagnoses Orde r Schedule Urine culture Urine, suprapubic catheter Microbiology Routine Acute cystitis with hematuria Expected: 10/28/2024, Expires: 10/28/2025 documented as of this encounter Procedures Procedure Name Priority Date/Time Associated Diagnosis Comments POCT URINALYSIS DIPSTICK Routine 10/28/2024 2:34 PM CDT Acute cystitis with hematuria documented in this encounter Results * (ABNORMAL) POCT urinalysis dipstick (10/28/2024 2:34 PM CDT) Color, Urine, POC Yellow Clarity, ur, POC Cloudy(A) Clear Glucose, ur, POC Negative Negative MG/DL Bilirubin, ur, POC Negative Negative, Small, Moderate, Large Ketones, ur, POC Negative Negative Specific [place], POC 1.020 1.003 - 1.030 Blood, ur, POC Hemolyzed, trace(A) Negative pH, ur, POC 6.0 5.0 - 8.0 Protein, ur, POC Negative Negative Urobilinogen, urine, POC 0.2 0.2 - 1.0 mg/dL Nitrite, ur, POC Negative Negative Leukocytes, ur, POC Small(A) Negative Lot Number [id number] Urine 10/28/2024 2:34 PM CDT Misty Jewell CUSTOMER TECHNICAL SERVICES MANAGER POINT OF CARE TEST ORDERAB LES Final Result documented in this encounter Visit Diagnoses Diagnosis Acute cystitis with hematuria- Primary History of recurrent UTIs documented in this encounter Care Teams Classified Advertising Clerk Relationship Specialty Start Date End Date Pranav Jones MD PCP - General 01/10/17 Sandra Frazier OT Occupational Therapist Occupational Therapy 01/07/18 Madhuri Abdul DPT [id number] [facility] [address] [place] [address] Physical Therapist Physical Therapy 12/20/21 documented as of this encounter
--- OUTSIDE RECORDS SUMMARY | 2024-10-28 16:41 | XMS_ITS | Data Portability ---
Author Organization [facility] Percy Rboerson Address [address] [place] [address] Care Team Providers Care Superintendent Overhead Distribution Name Role Phone ANUP JONES Primary Care Provider Unavailabl e Assessment Encounter Date Assessment Date Assessment LastModified by Organization Details LastModified Time 11/12/2023 11/12/2023 We will check blood work he continues to follow-up with his specialist immunizations discussed obtain old records see me back in 4 months Not available 11/24/2023 19:03:40 12/06/2023 12/06/2023 Wound care referral blood work see me back in 2 months [email or web address] Not available 12/06/2023 22:50:03 04/24/2024 04/24/2024 flu shot today I recommended he get COVID and RSV we will see him back in about 3-4 months overall he appears to be stable. His anxiety is managed conservatively Not available 04/25/2024 12:47:57 07/14/2024 07/14/2024 we do know that he has some cervical disc disease from his injury we will try the tizanidine. See me back in 3 months it let me know in about a week how he is doing [email or web address] Not available 07/14/2024 22:31:11 10/13/2024 10/13/2024 blood work x-ray of the shoulder orthopedic referral possibly a cortisone shot increase baclofen to 10 mg twice a day p.r.n. follow up 3 months recheck liver enzymes Not available 10/13/2024 21:40:51 Plan of Treatment Reminders Order Date Submit Date Provider Last Modified By Organization Details Last Modified Time Details Appointments ANY 15 2024 02:15P Bipin Jones MD Not available Not available Not available Lab lipid panel, serum 2024 025 [email or web address] [facility], [address] [facility], [facility] [address], [place], [address], 10/13/2024 17:28:51 CMP, serum or plasma 2024 025 RANI [facility], [address] [facility], [facility] [address], [place], [address], 10/15/2024 13:49:40 CBC w/ auto diff 2024 025 RANI [facility], [address] [place] [address], [facility] [address], [place], [address], 10/15/2024 13:49:40 CBC w/ auto diff 2023 024 RANI [facility], [address] [place] [address], [facility] [address], [place], [address], 12/10/2023 19:04:41 CMP, serum or plasma 2023 024 RANI [facility], [address] [place] [address], [facility] [address], [place], [address], 12/10/2023 19:04:41 PSA, total, serum or plasma 2023 024 [employer] [facility], [address] [place] [address], [facility] [address], [place], [address], 02/13/2024 16:42:42 vitamin D, 25-hydrox y, total, serum 2023 024 [employer] [facility], [address] [place] [address], [facility] [address], [place], [address], 02/13/2024 16:42:42 lipid panel, serum 2023 024 RANI [facility], [address] [place] [address], [facility], [place], [address], 11/27/2023 12:30:14 CMP, serum or plasma 2023 024 [facility], [address] [facility], [place], [address], 02/13/2024 16:42:42 CBC w/ auto diff 2023 024 [facility], [address] [facility], [place], [address], 02/13/2024 16:42:42 Referral orthopedi c surgeon referral 2024 025 [facility] Félix Amaral, [address] [facility] [address], [address], [place], [address], 10/14/2024 10:05:29 wound care referral - Pt seen Dr Trammell and he told pt he needed to have wound care. 2023 024 [facility], [address], [place], [address], 03/12/2024 15:31:13 Procedures None recorded. Surgeries None recorded. Imaging XR, shoulder - Right shoulder 2024 025 Not available 10/13/2024 17:28:51 Medication Orders tizanidin e 4 mg tablet 2023 024 [id number] [id number], [address] [facility], [place], [place], [id number], 07/15/2024 12:38:46 Patient TargetsNo targets recorded. Patient InstructionsNo instructions recorded. Reason for Referral Pt seen Dr Trammell and he t old pt he needed to have wound care. Referring Physician: Anup Jones, Internal Medicine, Encounter Date: 12/06/2023 Orthopedic Surgeon Referral for Shoulder pain Referring Physician: Anup Jones, Internal Medicine, Encounter Date: 10/13/2024 Results Created Date Observation Date Name Description Value Unit Range Abnormal Flag Note LastModifiedBy Organization Detail LastModifiedTime 11/21/19 24 11/21/2023 Prost ate speci fic Ag [Mass /volu me] in Serum or Plasm a PSA medicare screen PSA medic are scree n Not Available Not Available 09/10/2024 11:56:05 11/21/19 24 11/21/2023 25-hy droxy vitam in D3 [Mass /volu me] in Serum or Plasm a [id number] [id number] h Not Available Not Available 09/10/2024 11:56:04 11/21/19 24 11/21/2023 Compr ehens randy metab olic 2000 panel - Serum or Plasm a sodium low sodiu m Not Available Not Available 09/10/2024 11:56:04 11/21/19 24 11/21/2023 Compr ehens randy metab olic 2000 panel - Serum or Plasm a potassium potas sium Not Available Not Available 09/10/2024 11:56:04 11/21/19 24 11/21/2023 Compr ehens randy metab olic 2000 panel - Serum or Plasm a chloride chlor koko Not Available Not Available 09/10/2024 11:56:04 11/21/19 24 11/21/2023 Compr ehens randy metab olic 2000 panel - Serum or Plasm a carbon dioxide carbo n dioxi de Not Available Not Available 09/10/2024 11:56:04 11/21/19 24 11/21/2023 Compr ehens randy metab olic 2000 panel - Serum or Plasm a anion gap low anion gap Not Available Not Available 09/10/2024 11:56:04 11/21/19 24 11/21/2023 Compr ehens randy metab olic 2000 panel - Serum or Plasm a glucose high gluco se Not Available Not Available 09/10/2024 11:56:04 11/21/19 24 11/21/2023 Compr ehens randy metab olic 2000 panel - Serum or Plasm a BUN BUN Not Available Not Availa ble 09/10/2024 11:56:04 11/21/19 24 11/21/2023 Compr ehens randy metab olic 2000 panel - Serum or Plasm a creatinine low creat inine Not Available Not Available 09/10/2024 11:56:04 11/21/19 24 11/21/2023 Compr ehens randy metab olic 1999 panel - Serum or Plasm a GFR >60 GFR Not Available Not Availa ble 09/10/2024 11:56:04 11/21/19 24 11/21/2023 Compr ehens randy metab olic 2000 panel - Serum or Plasm a alkaline phosphatase alkal ine phosp hatas e Not Available Not Available 09/10/2024 11:56:04 11/21/19 24 11/21/2023 Compr ehens randy metab olic 2000 panel - Serum or Plasm a alanine aminotransfe rase ned ne amino trans feras e Not Available Not Available 09/10/2024 11:56:04 11/21/19 24 11/21/2023 Compr ehens randy metab olic 2000 panel - Serum or Plasm a aspartate aminotransfe rase aspar romero amino trans feras e Not Available Not Available 09/10/2024 11:56:04 11/21/19 24 11/21/2023 Compr ehens randy metab olic 2000 panel - Serum or Plasm a bilirubin, total bilir ubin, total Not Available Not Available 09/10/2024 11:56:04 11/21/19 24 11/21/2023 Compr ehens randy metab olic 2000 panel - Serum or Plasm a calcium calci um Not Available Not Available 09/10/2024 11:56:04 11/21/19 24 11/21/2023 Compr ehens randy metab olic 2000 panel - Serum or Plasm a total protein total prote in Not Available Not Available 09/10/2024 11:56:04 11/21/19 24 11/21/2023 Compr ehens randy metab olic 2000 panel - Serum or Plasm a albumin album in Not Available Not Available 09/10/2024 11:56:04 11/21/19 24 11/21/2023 Compr ehens randy metab olic 2000 panel - Serum or Plasm a globulin globu ann marie Not Available Not Available 09/10/2024 11:56:04 11/21/19 24 11/21/2023 Compr ehens randy metab olic 2000 panel - Serum or Plasm a A/G ratio A/G ratio Not Available Not Available 09/10/2024 11:56:04 11/21/19 24 11/21/2023 Lipid 1996 panel - Serum or Plasm a cholesterol high adan stero l Not Available Not Available 09/10/2024 11:56:04 11/21/19 24 11/21/2023 Lipid 1996 panel - Serum or Plasm a triglyceride s high trigl yceri doug Not Available Not Available 09/10/2024 11:56:04 11/21/19 24 11/21/2023 Lipid 1996 panel - Serum or Plasm a HDL cholesterol HDL adan stero l Not Available Not Available 09/10/2024 11:56:04 11/21/19 24 11/21/2023 Lipid 1996 panel - Serum or Plasm a cholesterol in LDL [mass/volume ] in serum or plasma high LDL adan stero l, calcu lated Not Available Not Available 09/10/2024 11:56:04 11/21/19 24 11/21/2023 CBC W Auto Diffe renti al panel - Blood white blood cells white blood cells Not Available Not Available 09/10/2024 11:56:04 11/21/19 24 11/21/2023 CBC W Auto Diffe renti al panel - Blood red blood cells low red blood cells Not Available Not Available 09/10/2024 11:56:04 11/21/1911/21/2023 CBC W Auto Diffe renti al panel - Blood hemoglobin low hemog lobin Not Available Not Available 09/10/2024 11:56:04 11/21/1911/21/2023 CBC W Auto Diffe renti al panel - Blood hematocrit low hemat ocrit Not Available Not Available 09/10/2024 11:56:04 11/21/1911/21/2023 CBC W Auto Diffe renti al panel - Blood mean red cell volume mean red cell volum e Not Available Not Available 09/10/2024 11:56:04 11/21/1911/21/2023 CBC W Auto Diffe renti al panel - Blood mean red cell hemoglobin high mean red cell hemog lobin Not Available Not Available 09/10/2024 11:56:04 11/21/19 24 11/21/2023 CBC W Auto Diffe renti al panel - Blood mean RBC HGB concentratio n mean RBC HGB jose g ntrat ion Not Available Not Available 09/10/2024 11:56:04 11/21/19 24 11/21/2023 CBC W Auto Diffe renti al panel - Blood red cell distribution width red cell distr ibuti on width Not Available Not Available 09/10/2024 11:56:04 11/21/19 24 11/21/2023 CBC W Auto Diffe renti al panel - Blood platelets plate lets Not Available Not Available 09/10/2024 11:56:04 11/21/19 24 11/21/2023 CBC W Auto Diffe renti al panel - Blood mean platelet volume mean plate let volum e Not Available Not Available 09/10/2024 11:56:04 11/21/1911/21/2023 CBC W Auto Diffe renti al panel - Blood neutrophils neutr ophil s Not Available Not Available 09/10/2024 11:56:04 11/21/19 24 11/21/2023 CBC W Auto Diffe renti al panel - Blood lymphocytes lymph ocyte s Not Available Not Available 09/10/2024 11:56:04 11/21/19 24 11/21/2023 CBC W Auto Diffe renti al panel - Blood monocytes monoc ytes Not Available Not Available 09/10/2024 11:56:04 11/21/1911/21/2023 CBC W Auto Diffe renti al panel - Blood eosinophils eosin ophil s Not Available Not Available 09/10/2024 11:56:04 11/21/19 24 11/21/2023 CBC W Auto Diffe renti al panel - Blood basophils basop hils Not Available Not Available 09/10/2024 11:56:04 11/21/19 24 11/21/2023 CBC W Auto Diffe renti al panel - Blood immature granulocytes high immat ure granu locyt es Not Available Not Available 09/10/2024 11:56:04 11/21/19 24 11/21/2023 CBC W Auto Diffe renti al panel - Blood neutrophils, absolute count neutr ophil s, absol [place] count Not Available Not Available 09/10/2024 11:56:04 11/21/19 24 11/21/2023 CBC W Auto Diffe renti al panel - Blood lymphocytes, absolute count lymph ocyte s, absol [place] count Not Available Not Available 09/10/2024 11:56:04 11/21/19 24 11/21/2023 CBC W Auto Diffe renti al panel - Blood monocytes, absolute count monoc ytes, absol [place] count Not Available Not Available 09/10/2024 11:56:04 11/21/19 24 11/21/2023 CBC W Auto Diffe renti al panel - Blood eosinophils, absolute count eosin ophil s, absol [place] count Not Available Not Available 09/10/2024 11:56:04 11/21/19 24 11/21/2023 CBC W Auto Diffe renti al panel - Blood basophils, absolute count basop hils, absol [place] count Not Available Not Available 09/10/2024 11:56:04 11/21/19 24 11/21/2023 CBC W Auto Diffe renti al panel - Blood immature granulocytes ,absolute immat ure granu locyt es,ab solut e Not Available Not Available 09/10/2024 11:56:04 11/21/19 24 11/21/2023 CBC W Auto Diffe renti al panel - Blood nucleated red blood cells nucle ated red blood cells Not Available Not Available 09/10/2024 11:56:04 11/21/19 24 11/21/2023 CBC W Auto Diffe renti al panel - Blood NRBC# NRBC# Not Available Not Availa ble 09/10/2024 11:56:04 12/10/19 24 12/10/2023 Compr ehens randy metab olic 1999 panel - Serum or Plasm a sodium low sodiu m Not Available Not Available 09/10/2024 11:56:05 12/10/19 24 12/10/2023 Compr ehens randy metab olic 1999 panel - Serum or Plasm a potassium potas sium Not Available Not Available 09/10/2024 11:56:05 12/10/19 24 12/10/2023 Compr ehens ranyd metab olic 1999 panel - Serum or Plasm a chloride chlor koko Not Available Not Available 09/10/2024 11:56:05 12/10/19 24 12/10/2023 Compr ehens randy metab olic 1999 panel - Serum or Plasm a carbon dioxide carbo n dioxi de Not Available Not Available 09/10/2024 11:56:05 12/10/19 24 12/10/2023 Compr ehens randy metab olic 1999 panel - Serum or Plasm a anion gap low anion gap Not Available Not Available 09/10/2024 11:56:05 12/10/19 24 12/10/2023 Compr ehens randy metab olic 1999 panel - Serum or Plasm a glucose high gluco se Not Available Not Available 09/10/2024 11:56:05 12/10/19 24 12/10/2023 Compr ehens randy metab olic 1999 panel - Serum or Plasm a BUN BUN Not Available Not Availa ble 09/10/2024 11:56:05 12/10/19 24 12/10/2023 Compr ehens randy metab olic 2000 panel - Serum or Plasm a creatinine low creat inine Not Available Not Available 09/10/2024 11:56:05 12/10/19 24 12/10/2023 Compr ehens randy metab olic 1999 panel - Serum or Plasm a GFR >60 GFR Not Available Not Availa ble 09/10/2024 11:56:05 12/10/19 24 12/10/2023 Compr ehens randy metab olic 1999 panel - Serum or Plasm a alkaline phosphatase alkal ine phosp hatas e Not Available Not Available 09/10/2024 11:56:05 12/10/19 24 12/10/2023 Compr ehens randy metab olic 2000 panel - Serum or Plasm a alanine aminotransfe rase ned ne amino trans feras e Not Available Not Available 09/10/2024 11:56:05 12/10/19 24 12/10/2023 Compr ehens randy metab olic 2000 panel - Serum or Plasm a aspartate aminotransfe rase aspar romero amino trans feras e Not Available Not Available 09/10/2024 11:56:05 12/10/19 24 12/10/2023 Compr ehens randy metab olic 2000 panel - Serum or Plasm a bilirubin, total bilir ubin, total Not Available Not Available 09/10/2024 11:56:05 12/10/19 24 12/10/2023 Compr ehens randy metab olic 2000 panel - Serum or Plasm a calcium calci um Not Available Not Available 09/10/2024 11:56:05 12/10/19 24 12/10/2023 Compr ehens randy metab olic 1999 panel - Serum or Plasm a total protein total prote in Not Available Not Available 09/10/2024 11:56:05 12/10/19 24 12/10/2023 Compr ehens randy metab olic 1999 panel - Serum or Plasm a albumin album in Not Available Not Available 09/10/2024 11:56:05 12/10/19 24 12/10/2023 Compr ehens randy metab olic 1999 panel - Serum or Plasm a globulin globu ann marie Not Available Not Available 09/10/2024 11:56:05 12/10/19 24 12/10/2023 Compr ehens randy metab olic 2000 panel - Serum or Plasm a A/G ratio A/G ratio Not Available Not Available 09/10/2024 11:56:05 12/10/19 24 12/10/2023 CBC W Auto Diffe renti al panel - Blood white blood cells white blood cells Not Available Not Available 09/10/2024 11:56:05 12/10/19 24 12/10/2023 CBC W Auto Diffe renti al panel - Blood red blood cells low red blood cells Not Available Not Available 09/10/2024 11:56:05 12/10/19 24 12/10/2023 CBC W Auto Diffe renti al panel - Blood hemoglobin low hemog lobin Not Available Not Available 09/10/2024 11:56:05 12/10/19 24 12/10/2023 CBC W Auto Diffe renti al panel - Blood hematocrit low hemat ocrit Not Available Not Available 09/10/2024 11:56:05 12/10/19 24 12/10/2023 CBC W Auto Diffe renti al panel - Blood mean red cell volume mean red cell volum e Not Available Not Available 09/10/2024 11:56:05 12/10/19 24 12/10/2023 CBC W Auto Diffe renti al panel - Blood mean red cell hemoglobin high mean red cell hemog lobin Not Available Not Available 09/10/2024 11:56:05 12/10/19 24 12/10/2023 CBC W Auto Diffe renti al panel - Blood mean RBC HGB concentratio n mean RBC HGB jose g ntrat ion Not Available Not Available 09/10/2024 11:56:05 12/10/19 24 12/10/2023 CBC W Auto Diffe renti al panel - Blood red cell distribution width red cell distr ibuti on width Not Available Not Available 09/10/2024 11:56:05 12/10/19 24 12/10/2023 CBC W Auto Diffe renti al panel - Blood platelets plate lets Not Available Not Available 09/10/2024 11:56:05 12/10/19 24 12/10/2023 CBC W Auto Diffe renti al panel - Blood mean platelet volume mean plate let volum e Not Available Not Available 09/10/2024 11:56:05 12/10/19 24 12/10/2023 CBC W Auto Diffe renti al panel - Blood neutrophils neutr ophil s Not Available Not Available 09/10/2024 11:56:05 12/10/19 24 12/10/2023 CBC W Auto Diffe renti al panel - Blood lymphocytes lymph ocyte s Not Available Not Available 09/10/2024 11:56:05 12/10/19 24 12/10/2023 CBC W Auto Diffe renti al panel - Blood monocytes monoc ytes Not Available Not Available 09/10/2024 11:56:05 12/10/19 24 12/10/2023 CBC W Auto Diffe renti al panel - Blood eosinophils eosin ophil s Not Available Not Available 09/10/2024 11:56:05 12/10/19 24 12/10/2023 CBC W Auto Diffe renti al panel - Blood basophils basop hils Not Available Not Available 09/10/2024 11:56:05 12/10/19 24 12/10/2023 CBC W Auto Diffe renti al panel - Blood immature granulocytes immat ure granu locyt es Not Available Not Available 09/10/2024 11:56:05 12/10/19 24 12/10/2023 CBC W Auto Diffe renti al panel - Blood neutrophils, absolute count neutr ophil s, absol [place] count Not Available Not Available 09/10/2024 11:56:05 12/10/19 24 12/10/2023 CBC W Auto Diffe renti al panel - Blood lymphocytes, absolute count lymph ocyte s, absol tuolum[place] count Not Available Not Available 09/10/2024 11:56:05 12/10/19 24 12/10/2023 CBC W Auto Diffe renti al panel - Blood monocytes, absolute count monoc ytes, absol tu[place] count Not Available Not Available 09/10/2024 11:56:05 12/10/19 24 12/10/2023 CBC W Auto Diffe renti al panel - Blood eosinophils, absolute count eosin ophil s, absol tuolumne count Not Available Not Available 09/10/2024 11:56:05 12/10/19 24 12/10/2023 CBC W Auto Diffe renti al panel - Blood basophils, absolute count basop hils, absol tuolumne count Not Available Not Available 09/10/2024 11:56:05 12/10/19 24 12/10/2023 CBC W Auto Diffe renti al panel - Blood immature granulocytes ,absolute immat ure granu locyt es,ab solut e Not Available Not Available 09/10/2024 11:56:05 12/10/19 24 12/10/2023 CBC W Auto Diffe renti al panel - Blood nucleated red blood cells nucle ated red blood cells Not Available Not Available 09/10/2024 11:56:05 12/10/19 24 12/10/2023 CBC W Auto Diffe renti al panel - Blood NRBC# NRBC# Not Available Not Availa ble 09/10/2024 11:56:05 09/11/19 25 09/13/2024 Bacte tara ident ified in Urine by Cultu re bacteria identified in urine by culture Pseudo monas aerugi nosa Not Available Not Available 02:22:46 09/11/19 25 09/11/2024 Urina lysis compl ete W Refle x Cultu re panel - Urine color of urine by auto Color of urine normal Not Available Not Available 02:22:46 09/11/19 25 09/11/2024 Urina lysis compl ete W Refle x Cultu re panel - Urine appearance of urine Urine specim en Not Available Not Available 02:22:46 09/11/19 25 09/11/2024 Urina lysis compl ete W Refle x Cultu re panel - Urine specific gravity of urine by test strip 1.021 1 low: 1.001h igh: 1.03 normal Not Available Not Available 09/30/2024 02:22:46 09/11/19 25 09/11/2024 Urina lysis compl ete W Refle x Cultu re panel - Urine pH of urine by test strip 6.5 pH_un its low: 5pH unitsh igh: 9pH units normal Not Available Not Available 09/30/2024 02:22:46 09/11/19 25 09/11/2024 Urina lysis compl ete W Refle x Cultu re panel - Urine leukocytes [#/volume] in urine by test strip Leukoc yte estera se measur ement text: negati ve Not Available Not Available 09/30/2024 02:22:46 09/11/19 25 09/11/2024 Urina lysis compl ete W Refle x Cultu re panel - Urine nitrite [presence] in urine by test strip Labora tory test findin g text: negati ve normal Not Available Not Available 09/30/2024 02:22:46 09/11/19 25 09/11/2024 Urina lysis compl ete W Refle x Cultu re panel - Urine protein [mass/volume ] in urine by test strip 10 mg/dL text: negati ve Not Available Not Available 09/30/2024 02:22:46 09/11/19 25 09/11/2024 Urina lysis compl ete W Refle x Cultu re panel - Urine glucose [moles/volum e] in urine by test strip Labora tory test findin g text: normal normal Not Available Not Available 09/30/2024 02:22:46 09/11/19 25 09/11/2024 Urina lysis compl ete W Refle x Cultu re panel - Urine ketones [moles/volum e] in urine by test strip Labora tory test findin g text: negati ve normal Not Available Not Available 09/30/2024 02:22:46 09/11/19 25 09/11/2024 Urina lysis compl ete W Refle x Cultu re panel - Urine urobilinogen [mass/volume ] in urine by test strip Urobil inogen measur ement, urine text: normal normal Not Available Not Available 09/30/2024 02:22:46 09/11/19 25 09/11/2024 Urina lysis compl ete W Refle x Cultu re panel - Urine bilirubin.to suzie [mass/volume ] in urine by test strip Urine dipsti ck for biliru bin text: negati ve normal Not Available Not Available 09/30/2024 02:22:46 09/11/19 25 09/11/2024 Urina lysis compl ete W Refle x Cultu re panel - Urine erythrocytes [#/volume] in urine by test strip 0.1 mg/dL text: negati ve Not Available Not Available 09/30/2024 02:22:46 09/11/1909/11/2024 Urina lysis compl ete W Refle x Cultu re panel - Urine leukocytes [#/area] in urine sediment by automated count Leukoc ytes in urine low: 0/[hpf ]high: 8/[hpf ] Not Available Not Available 09/30/2024 02:22:46 09/11/19 25 09/11/2024 Urina lysis compl ete W Refle x Cultu re panel - Urine leukocyte clumps [presence] in urine by automated Urine findin g text: none seen Not Available Not Available 09/30/2024 02:22:46 09/11/19 25 09/11/2024 Urina lysis compl ete W Refle x Cultu re panel - Urine erythrocytes [#/area] in urine sediment by automated count Blood in urine low: 0/[hpf ]high: 4/[hpf ] Not Available Not Available 09/30/2024 02:22:46 09/11/19 25 09/11/2024 Urina lysis compl ete W Refle x Cultu re panel - Urine bacteria [presence] in urine by automated Urine findin g Not Available Not Available 02:22:46 09/11/19 25 09/11/2024 Urina lysis compl ete W Refle x Cultu re panel - Urine mucus [#/area] in urine sediment by automated count Urine findin g Not Available Not Available 02:22:46 09/11/19 25 09/11/2024 Urina lysis compl ete W Refle x Cultu re panel - Urine epithelial cells.[place] us [#/area] in urine sediment by automated count Urine findin g normal Not Available Not Available 02:22:46 09/11/19 25 09/11/2024 Urina lysis compl ete W Refle x Cultu re panel - Urine crystals [#/area] in urine sediment by automated count Urine findin g Not Available Not Available 02:22:46 Result Notes None recorded. Problems Name Problem SNOMED Code Status Onset Date Resolution Date Notes Provider Name and Address Organization Details Recorded Time Hyperlipide abdelrahman 69579453 Active 2023 BENITO Delacruz, [facility] 4 15:53:37 Vitamin D deficiency [id number] Active 2023 BENITO Delacruz, [facility] 4 15:53:37 Screening for malignant neoplasm of prostate Active 2023 BENITO Delacruz, [facility] 4 15:53:38 Open wound of left foot [id number] Active 2023 BENITO Delacruz, [facility] 4 16:36:27 Problem Notes None recorded. Procedures Surgical History Date Name Laterality Status Provider Name and Address Organization Details Recorded Time procedure on spinal cord completed Blanquita Bray MA [facility] 11/12/2023 15:30:07 catheterization completed Blanquita Bray MA [facility] 11/12/2023 15:30:23 Imaging Results None recorded. Procedure Notes None recorded. Medical Equipment None Reported. Allergies No known drug allergies Medications Name Sig Start Date Stop Date Status Note LastModified by Organization Details LastModified Time tizanidine 4 mg tablet Take by oral route for 10 days. active Not Available Not Available No t Available ampicillin 500 mg capsule 11/11 completed Not Available Not Available Not Available senna 8.6 mg tablet TAKE 1 TABLET BY MOUTH EVERY DAY active Not Available Not Available No t Available metronidazo le 500 mg tablet 04/24 completed Not Available Not Available Not Available ciprofloxac in 500 mg tablet TAKE 1 TABLET BY MOUTH EVERY 12 HOURS FOR 7 DAYS 10/07 completed Not Available Not Available Not Available sulfamethox azole 800 mg-trimetho prim 160 mg tablet TAKE 1 TABLET BY MOUTH TWICE DAILY FOR 7 DAYS 11/11 completed Not Available Not Available Not Available cephalexin 500 mg capsule 04/24 completed Not Available Not Available Not Available oxybutynin chloride ER 5 mg tablet,exte nded release 24 hr 11/11 completed Not Available Not Available Not Available ergocalcife rol (vitamin D2) 1,250 mcg (50,000 unit) capsule TAKE 1 CAPSULE BY MOUTH EVERY WEEK active Not Available Not Available No t Available ketoconazol e 2 % topical cream APPLY TO AFFECTED AREA ON FIFTH RIGHT TOE ONCE A DAY 10/13 completed Not Available Not Available Not Available ezetimibe 10 mg tablet TAKE 1 TABLET BY MOUTH EVERY DAY 2024 active Not Available Not Available Not Avai lable nitrofurant oin monohydrate /macrocryst als 100 mg capsule 11/11 completed Not Available Not Available Not Available baclofen 5 mg tablet TAKE 1 TABLET BY MOUTH TWICE DAILY NEEDED active Not Available Not Available No t Available Vitals Date Recorded Body weight Heart rate Oxygen saturation Oxygen saturation in Arterial blood by Pulse oximetry Systolic blood pressure Diastolic blood pressure Provider Name and Address Organization Details Last Updated DateTime 4 78906.4 4 g 69 /min 97 % 97 % 126 mm[Hg] 64 mm[Hg] Blanquita Bray [place] [facility] 4 15:33:35 Date Recorded Body weight Heart rate Oxygen saturation Oxygen saturation in Arterial blood by Pulse oximetry Provider Name and Address Organization Details Last Updated DateTime 12/06/2023 96680.44 g 81 /min 99 % 99 % Talita Solomon [place] [facility] 12/06/2023 15:57:24 Date Recorded Heart rate Oxygen saturation Oxygen saturation in Arterial blood by Pulse oximetry Systolic blood pressure Diastolic blood pressure Provider Name and Address Organization Details Last Updated DateTime 4 70 /min 98 % 98 % 124 mm[Hg] 62 mm[Hg] Talita Solomon [place] [facility] 4 16:26:43 Date Recorded Heart rate Oxygen saturation Oxygen saturation in Arterial blood by Pulse oximetry Systolic blood pressure Diastolic blood pressure Provider Name and Address Organization Details Last Updated DateTime 4 68 /min 96 % 96 % 128 mm[Hg] 70 mm[Hg] Talita Solomon MA [facility] 4 15:50:22 Date Recorded Heart rate Oxygen saturation Oxygen saturation in Arterial blood by Pulse oximetry Systolic blood pressure Diastolic blood pressure Provider Name and Address Organization Details Last Updated DateTime 5 67 /min 97 % 97 % 116 mm[Hg] 72 mm[Hg] Jonna Jarquin [place] - [facility] 5 14:43:18 Social History Question Answer Notes LastModified by Organizat ion Details LastModified Time Tobacco Smoking Status Former Smoker Blanquita Bray MA null, [facility] 11/12/2023 15:28:31 Do You Have An Advance Directive? No Information n ot available 11/12/2023 What Is Your Level Of Alcohol Consumption? None Information not available 12/06/2023 Are You Blind Or Do You Have Difficulty Seeing? No Information n ot available 11/12/2023 What Is Your Level Of Caffeine Consumption? None Information not available 11/12/2023 In The 14 Days Before Symptom Onset, Have You Had Close Contact With A Laboratory-confirm ed COVID-19 While That Case Was Ill? No Information n ot available 04/24/2024 In The 14 Days Before Symptom Onset, Have You Had Close Contact With A Person Who Is Under Investigation For COVID-19 While That Person Was Ill? No Information not available 04/24/2024 Have You Been To An Area Known To Be High Risk For COVID-19? No Information not available 04/24/2024 Are You Currently Employed? No Information not available 11/12/2023 Are You Deaf Or Do You Have Serious Difficulty Hearing? No Information not available 11/12/2023 What Type Of Diet Are You Following? REGULAR Information n ot available 11/12/2023 Are There Any Guns Present In Your Home? No Information not available 04/24/2024 What Was The Date Of Your Most Recent Tobacco Screening? 10/13/2024 Information not available 10/13/2024 What Is Your Current Pack Years? [id number] rs Information not available 11/12/2023 What Is Your Relationship Status? Single Information not available 11/12/2023 Do You Use Your Seat Belt Or Car Seat Routinely? Yes Information not available 11/12/2023 Do You Have Smoke And Carbon Monoxide Detectors In Your Home? Yes Information not available 11/12/2023 How Much Tobacco Do You Smoke? 2 PPD Information not available 11/12/2023 Do You Feel Stressed (tense, Restless, Nervous, Or Anxious, Or Unable To Sleep At Night)? [id number] Information not available 11/12/2023 Do You Use Any Illicit Or Recreational Drugs? No Information not available 11/12/2023 Do You Use Sunscreen Routinely? No Information not available 11/12/2023 Has Tobacco Cessation Counseling Been Provided? No Information not available 04/24/2024 On What Date Was Tobacco Cessation Counseling Provided? 10/13/2024 Information not available 10/13/2024 Do You Or Have You Ever Used Any Other Forms Of Tobacco Or Nicotine? No Information not available 11/12/2023 Sex: Male Functional Status Question Answer Note LastModified by Organizat ion Details LastModified Time Are you able to care for yourself? Yes Information not available 11/12/2023 What is your exercise level? Occasional Information not available 11/12/2023 Mental Status None recorded. Family History Nothing Reported. Medical History Condition Response Coronary Artery Disease N Other N High Blood Pressure N Atrial Fibrillation N Kidney or Bladder Problems N Thyroid Problems N GI Problems N Depression N COPD N Blood Clots N Skin Problems N Anemia N Heart Attack (IA) N Anxiety Disorder N Diabetes N Muscle, Joint, or Bone Problems N Seizures/Epilepsy N Acid Reflux (GERD) N Cancer N Stroke N Asthma N Allergies N High Cholesterol N Hepatitis N Liver Disease N Headaches N Heart Failure N Osteoporosis N Immunizations Vaccine Type Date Status Note Provider Nam e and Address Organization Details Recorded Time COVID-19, mRNA, LNP-S, PF, 100 mcg/0.5mL dose or 50 mcg/0.25mL dose 07/10/2021 completed Jonna Jarquin [place], [place] [facility] 10/13/2024 14:38:18 COVID-19, mRNA, LNP-S, PF, 30 mcg/0.3 mL dose 05/08/2021 completed [place]onna [place] [facility] 10/13/2024 14:38:18 COVID-19 vaccine, vector-nr, rS-Ad26, PF, 0.5 mL 10/05/2020 completed BENITO [place] [facility] 10/13/2024 14:38:18 COVID-19 vaccine, vector-nr, rS-Ad26, PF, 0.5 mL 10/12/2020 completed [place]onna [place] [facility] 10/13/2024 14:38:18 Influenza, split virus, quadrivalent, PF 09/07/2023 completed [place]onna [place] [facility] 10/13/2024 14:38:18 Influenza, split virus, quadrivalent, PF 05/08/2018 completed [place]onna [place] [facility] 10/13/2024 14:38:18 Influenza, split virus, quadrivalent, PF 05/23/2018 completed [place]onna [place] [facility] 10/13/2024 14:38:18 Influenza, split virus, quadrivalent, PF 05/24/2021 completed [place]onna [place] [facility] 10/13/2024 14:38:18 Influenza, split virus, quadrivalent, PF 06/15/2020 completed [place] [facility] 10/13/2024 14:38:18 Influenza, split virus, quadrivalent, PF 07/15/2019 completed [place] [facility] 10/13/2024 14:38:18 Influenza, split virus, quadrivalent, PF 07/18/2022 completed [place] [facility] 10/13/2024 14:38:18 Influenza, split virus, trivalent, PF 04/24/2024 completed Anup Jones MD Attn: Accounting[address] [place], [address], [place] [facility] 04/25/2024 12:45:58 Past Encounters Encounter ID Performer Location Encounter Start Date Encounter Closed Date Diagnosis/Indication Diagnosis SNOMED-CT Code Diagnosis ICD10 Code Diagnosis Note [id number] Anup Jones MD PENDING SALE TO [facility] [address] [place] [address] 11/12/2023 14:47:11 11/12/2023 15:58:21 Hyperlipidemia 19627957 E78.5 Vitamin D deficiency 347 18430 E55.9 Screening for malignant neoplasm of prostate 461286244 Z12.5 [id number] Anup Jones MD PENDING SALE TO [facility] [place] [address] [place] [address] 12/06/2023 15:26:19 12/06/2023 17:07:10 Open wound of left foot 4191432025 0953374 S91.302A Hyperlipidemia 12790614 E78.5 Diarrhea 45049139 R19.7 [id number] Anup Jones MD PENDING SALE TO [facility] [place] [address] [place] [address] 04/24/2024 16:01:31 04/24/2024 17:15:09 Administration of influenza vaccine 81916166 Z23 Hyperlipidemia 91415176 E78.5 Vitamin D deficiency 347 90357 E55.9 [id number] Anup Jones MD PENDING SALE TO [facility] [place] [address] [place] [address] 07/14/2024 15:38:38 07/14/2024 16:30:31 Spasticity 925617518 R25.2 Hyperlipidemia 85268662 E78.5 [id number] Anup Jones MD PENDING SALE TO [facility] [place] [address] [place] [address] 10/13/2024 14:32:12 10/13/2024 15:59:53 Hyperlipidemia 68678732 E78.5 Shoulder pain 54199449 M 25.511 Liver enzy mes outside reference range 913130410 R94.5 Health Concerns Section Related Observation LastModified by Organization Detai ls LastModified Time None Recorded Concern Status LastModified by Organization Details LastModified Time None Recorded Advance Directives Directive N: Payers Encounter Date Sequence Insurance Name Policy Number Policy [place] Covered Member ID [place] Member ID Guarantor Name 11/12/2023 1 [facility] (MEDICARE REPLACEMENT/A DVANTAGE - HMO) [id number] Davidiwona James [id number] David David Erika 12/06/2023 1 [facility] (MEDICARE REPLACEMENT/A DVANTAGE - HMO) [id number] Davidiwona James [id number] David David Helmohamudich 04/24/2024 1 [facility] (MEDICARE REPLACEMENT/A DVANTAGE - HMO) [id number] Davdi James [id number] David David Helmohamudich 07/14/2024 1 [facility] (MEDICARE REPLACEMENT/A DVANTAGE - HMO) [id number] David James [id number] David J Helmohamudich 10/13/2024 1 [facility] (MEDICARE REPLACEMENT/A DVANTAGE - HMO) [id number] David James [id number] Davidiwona James Notes Date Note Type Note Provider Name and Address Organization Details Recorded Time 11/12/2023 text/html 53-year-old with 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 Low vitamin-D we are keeping an eye on that anxiety is doing fine. Went to the ER for some diarrhea CT scan he said was fine it has not resolved Anup Jones MD Attn: Accounting, [address] [place], [address], [place] [facility] 04/25/2024 12:48:13 07/14/2024 text/html a couple of ER v isits for UTI and bowel problems and that is all settled down but he has noticed a little bit of burning from his neck however toes right shoulder a little bit there becoming uncomfortable for him. No SI no HI Anup Jones MD Attn: Accounting, [address] [facility], [place], [address], [facility] 07/14/2024 22:31:33 10/13/2024 text/html he is taking his cholesterol medicine needs to have that checked low vitamin-D level he has been taking his supplementation anxiety has been stable on conservative measures having some shoulder pain that bothers him and from time to time some spasticity Anup Jones MD Attn: Accounting, [address] [facility], [place], [address], [facility] 10/13/2024 21:41:08
--- OUTSIDE RECORDS SUMMARY | 2024-10-28 16:42 | XMS_ITS | Referral Summary ---
Author Organization [facility] Address [address] [place] [address] Care Team Providers Care Process Development Associate Name Role Phone Pranav Jones MD Primary Care Provider [phone] Sandra Frazier OT Unavailable Unavailab Madhuri De Leon DPT Unavail able Encounters Date Type Department Care Team Description 10/28/2024 2:15 PM CDT Office Visit [facility] Care at [address] [address] Rosa Vieira NP Acute cystitis with hematuria (Primary Dx); History of recurrent UTIs 09/16/2024 Orders Only [facility] [address] [place] [address] Advanced Medicine 5th [place] [address] [place] [address] Damir Larkin NP Age-related osteoporosis without current pathological fracture (Primary Dx) 08/11/2024 Telephone [facility] Pulmonology [address] [place] [address] [place] [address] Rasheed Kumari MD Lab Results (Call into the office. ) from Last 3 Months Allergies No known active allergies Medications multivitamin tabletIndicatio ns:Vitamin Deficiency Prevention Take 1 tablet by mouth daily Active ergocalciferol (VITAMIN D) 50,000 unit capsule Take 1 capsule (50,000 Units total) by mouth once a week Take 1 capsule every other Sunday03/28/20 18 Active VITAMIN B COMPLEX ORAL Take 1 capsule by mouth daily Active ezetimibe (ZETIA) 10 mg tablet Take 1 tablet (10 mg total) by mouth daily 03/27/20 23 Active Lactobacillus acidophilus (PROBIOTIC ORAL) Take 1 tablet by mouth daily Active pumpkin seed extract/soy germ (AZO BLADDER CONTROL ORAL) Take 1 tablet by mouth daily Active MILK THISTLE ORAL Take 1 tablet/capsule by mouth daily Active polyethylene glycol (MIRALAX) 17 gram packet Take 1 packet (17 g total) by mouth every other day 100 packet 04/16/20 24 Active senna (SENOKOT) 8.6 mg tablet Take 1 tablet by mouth daily 30 tablet 04/16/20 24 Active glycerin suppository Insert 1 suppository into the rectum daily as needed for constipation 30 suppository 04/16/20 24 Active fosfomycin (MONUROL) 3 gram packetIndicatio ns:Urinary Tract/Genitouri nary Infection Take 3 g by mouth once for 1 dose 3 g 10/29/19 25 025 Active Active Problems Problem Noted Date Diagnosed Date Complicated urinary tract infection 05/04/2024 Hypogonadism in male 04/22/2024 Fatty liver 11/27/2023 Dehydration 11/26/2023 Proctocolitis 10/09/2023 Diarrhea 10/09/2023 Acute UTI 09/06/2023 Age-related osteoporosis wit hout current pathological fracture 03/22/2023 Cervical spinal cord injury 05/05/2019 Depression 03/11/2019 Dyslipidemia 07/16/2018 H/O spinal cord injury 04/15/2018 Neurogenic bowel 03/06/2018 Neurogenic bladder 03/06/2018 Muscle spasticity 03/06/2018 Quadriplegia 03/06/2018 Neuropathic pain syndrome (non-herpetic) 018 Anxiety 03/17/2017 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 05/02/2016 History of arthrodesis 05/02/2016 Resolved Problems Problem Noted Date Diagnosed Date Resolved Date Prostate abscess 04/17/2023 10/09/2023 Complicated UTI (urinary tract infection) 04/10/2023 10/09/2023 Blood in urine 04/01/2020 10/09/2023 Weakness 04/01/2020 10/09/2023 Paronychia of toe 10/04/2017 10/09/2023 Immunizations Immunization Administration Dates Next Due Influenza, Quadrivalent, Spl it, Preservative Free, Intramuscular 09/07/2023,05/24/2021,06/15/2020,07/15,05/23/2018,05/08/2018 Lanie (J&J) SARS-CoV-2 Vaccination 10/12/2020 Social History Tobacco Use Types Packs/Day Years Used Date Smoking Tobacco: Former Cigarettes Smokeless Tobacco: Never Tobacco Cessation:Counseling Given: Not Answered Alcohol Use Standard Drinks/Week Comments Defer 0 (1 standard drink = 0.6 oz pur e alcohol) [facility] Utilities Answer Date Recorded In the past 12 months has th e electric, gas, oil, or water company threatened to [...] often do you attend chur ch or mormonism services? Never 05/05/2024 Do you belong to any clubs o r organizations such as anabaptism groups, unions, fraternal or athletic groups, or [...] place to sleep or slept in a assisted (including now)? No 11/26/2023 Housing Stability Vital Sign Answer Jori e Recorded In the last 12 months, was t here a time when you were not able to pay the mortgage or rent on time? No 05/05/2024 In the past 12 months, how m any times have you moved where you were living? 1 05/05/2024 At any time in the past 12 m [facility], were you homeless or living in a assisted (including now)? No 05/05/2024 Personal Safety Answer Date Recorded Have you ever been in or are you currently in a harmful physical or emotional relationship or is someone making you feel afraid or unsafe? Denies 06/13/2024 Sex and Gender Information Value Date Recorded Sex Assigned at Not on file Legal Sex Male 8:11 AM [employer]OLESALE [employer] Gender Identity Not on file Sexual Orientation Not on file Last Filed Vital Signs Vital Sign Reading [...] PM CDT Wheelchair bound, Patient reports Height 175.3 cm (5' 9 ) 06/13/2024 1:03 PM [employer] Body Mass Index 31.01 06/13/2024 1:03 PM [employer] Plan of Treatment Not on file Procedures Procedure Name Priority Date/Time Associated Diagnosis Comments POCT URINALYSIS DIPSTICK Routine 10/28/2024 2:34 PM CDT Acute cystitis with hematuria PSA SCREEN Routine 04/12/2023 3:24 AM CDT from Last 3 Months or Most Recently Relevant to Health Maintenance Results * (ABNORMAL) POCT urinalysis dipstick (10/28/2024 2:34 PM CDT) Color, Urine, POC Yellow Clarity, ur, POC Cloudy(A) Clear Glucose, ur, POC Negative Negative MG/DL Bilirubin, ur, POC Negative Negative, Small, Moderate, Large Ketones, ur, POC Negative Negative Specific Keyes, POC 1.020 1.003 - 1.030 Blood, ur, POC Hemolyzed, trace(A) Negative pH, ur, POC 6.0 5.0 - 8.0 Protein, ur, POC Negative Negative Urobilinogen, urine, POC 0.2 0.2 - 1.0 mg/dL Nitrite, ur, POC Negative Negative Leukocytes, ur, POC Small(A) Negative Lot Number [id number] Urine 10/28/2024 2:34 PM CDT Misty Jewell NP POINT OF CARE TEST ORDERAB LES Final Result * PSA screen (04/12/2023 3:24 AM CDT) PSA-Total 1.99 <=3.90 ng/mL EMLISA RIZZO Comment: Interpretive Data AGE SEX REFERENCE INTERVAL 0 minutes-150 years Female None 0 minutes-49 years Male None 50-59 years Male 0-3.90 60-69 years Male 0-5.40 70-79 years Male 0-6.20 80-150 years Male 0-6.20 The Raghu PSA Total assay procedure was used. Results from different manufacturers or methods may not be comparable. Serial testing should be performed using the same method. Current interpretive data last revised 21. Testing performed by: [facility], [address] [place] [address]., [id number] Blood 04/12/2023 3:24 AM CDT 04/12/2023 3:39 AM CDT us Rasheed Kumari MD LAB BLOOD ORDERABLES Final R esult [facility] [address] [facility] Department [place] [address] from Last 3 Months or Most Recently Relevant to Health Maintenance [place] [address] [facility] [place] [address] [employer] [facility] [place] [address] [employer] [facility] [place] [address] [facility] MED[employer] ADVANTAGE Advance Directives For more information, please contact: [phone] * Full Code (Latest Code Status on File) Date Activated Date Inactivated Comments 05/04/2024 9:29 PM 05/09/2024 4:29 PM * Full Code Date Activated Date Inactivated Comments 11/25/2023 8:17 PM 11/27/2023 8:40 PM * Full Code Date Activated Date Inactivated Comments 10/10/2023 12:57 AM 10/11/2023 7:59 PM * Full Code Date Activated Date Inactivated Comments 09/07/2023 12:37 AM 09/07/2023 6:44 PM * Full Code Date Activated Date Inactivated Comments 04/11/2023 2:40 AM 04/18/2023 7:59 PM Care Teams Process Development Associate Relationship Specialty Start Date End Date Pranav Jones MD PCP - General 01/10/17 Sandra Frazier OT Occupational Therapist Occupational Therapy 01/07/18 Madhuri Abdul DPT [id number] [place] [address] Physical Therapist Physical Therapy 12/20/21
--- OUTSIDE RECORDS SUMMARY | 2024-10-28 16:42 | XMS_ITS | Encounter Summary ---
Author Organization [facility] Address [address] [place] [address] Phone Care Team Providers Care Rotoprinter Name Role Phone Pranav Jones MD Primary Care Provider + [phone] Sandra Frazier OT Unavailable Unavailab Madhuri De Leon DPT Unavail able Encounter Details Date Type Department Care Team (Latest Contact Info) Description 09/03/2018 Orders Only [facility] Scanning, Provider Social History Tobacco Use Types Packs/Day Years Used Date Smoking Tobacco: Former Smokeless Tobacco: Never Sex and Gender Information Value Date Recorded Sex Assigned at Not on file Legal Sex Male 8:11 AM L[employer]OGRAPHIC [employer]ER Gender Identity Not on file Sexual Orientation Not on file documented as of this encounter Plan of Treatment Not on file documented as of this encounter Procedures Procedure Name Priority Date/Time Associated Diagnosis Comments SCAN - NEUROLOGY 09/03/2018 documented in this encounter Results * SCAN - NEUROLOGY (09/03/2018) Anatomical Region Laterality Modality Other us Provider Scanning Final Result documented in this encounter Visit Diagnoses Not on filedocumented in this encounter Additional Health Concerns Infection Onset Date Last Indicated Resolved Time Diarrhea 09/17/2023 09/17/2023 10/01/2023 3:05 AM L[employer]OGRAPHIC [employer] FE[employer]ER COVID: Suspected 10/09/2023 10/09/2023 10/09/2023 6:32 PM CDT C. difficile suspected 10/09/2023 10/09/202310/11 3:07 AM CDT C. difficile suspected 11/25/2023 11/25/202311/27 3:05 AM CDT documented as of this encounter Care Teams Rotoprinter Relationship Specialty Start Date End Date Pranav Jones MD PCP - General 01/10/17 Sandra Frazier OT Occupational Therapist Occupational Therapy 01/07/18 Madhuri Abdul DPT [address] [facility] [address] [place] [address] Physical Therapist Physical Therapy 12/20/21 documented as of this encounter
--- OUTSIDE RECORDS SUMMARY | 2024-10-28 16:42 | XMS_ITS | Clinical Summary ---
Author Organization [facility] Address [address] [place] [address] Care Team Providers [employer] Name Role Phone Pranav Jones MD Primary Care Provider + [phone] Sandra Frazier OT Unavailable Unavailab Madhuri De Leon DPT Unavail able Allergies No known active allergies Medications multivitamin [...] 04/01/2020 10/09/2023 Paronychia of toe 10/04/2017 10/09/2023 Encounters Date Type Department Care Team Description 10/28/2024 2:15 PM CDT Office Visit [facility] at [address] [id number] Rosa Vieira NP Acute cystitis with hematuria (Primary Dx); History of recurrent UTIs 09/16/2024 Orders Only [facility] [address] [facility] 5[address] [place] [address] [place] [address] Damir Larkin NP Age-related osteoporosis without current pathological fracture (Primary Dx) 08/11/2024 Telephone [facility] Pulmonology [address] [facility] [address] [place] [phone] Rasheed Kumari MD Lab Results (Call into the office. ) from Last 3 Months Immunizations Immunization Administration Dates Next Due Influenza, Quadrivalent, Spl it, Preservative Free, Intramuscular 09/07/2023,05/24/2021,06/15/2020,07/15,05/23/2018,05/08/2018 Lanie (J&J) SARS-CoV-2 Vaccination 10/12/2020 Surgical History Surgery Date Site/Laterality Comments NE ARTHRD ANT INTERBODY MIN DSC CRV BELOW C2 Cervical Vertebral Fusion - (Added by TW Conv) Medical History Medical History Date Comments Personal history of diseases of skin or subcutaneous tissue History of decubitus ulcer - (Added by Conv) Urinary tract infection UTI (uri nary tract infection) with pyuria - (Added by Conv) Family History Medical History Relation Name Comments Hip fracture Neg Hx Osteoporosis Neg Hx Social History Tobacco Use Types Packs/Day Years Used Date Smoking Tobacco: Former Cigarettes Smokeless Tobacco: Never Tobacco Cessation:Counseling Given: Not Answered Alcohol Use Standard Drinks/Week Comments Defer 0 (1 standard drink = 0.6 oz pur e alcohol) [facility] Utilities Answer Date Recorded In the past 12 months has [employer], gas, oil, or water [employer] threatened to shut off services in your [...] week 05/05/2024 How often do you attend formerly [facility] or quaker services? Never 05/05/2024 Do you belong to any clubs o r organizations such as christian groups, unions, fraternal or athletic groups, or [...] place to sleep or slept in a usp (including now)? No 11/26/2023 Housing Stability Vital Sign Answer Jori e Recorded In the last 12 months, was t here a time when you were not able to pay the mortgage or rent on time? No 05/05/2024 In the past 12 months, how m any times have you moved where you were living? 1 05/05/2024 At any time in the past 12 m [place], were you homeless or living in a usp (including now)? No 05/05/2024 Personal Safety Answer Date Recorded Have you ever been in or are you currently in a harmful physical or emotional relationship or is someone making you feel afraid or unsafe? 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 Gender Identity Not on file Sexual Orientation Not on file Obstetrics History Last Filed Vital Signs Vital Sign Reading [...] cm (5' 9 ) 06/13/2024 1:03 PM DISPENSING OPERATOR Body Mass Index 31.01 06/13/2024 1:03 PM DISPENSING OPERATOR Plan of Treatment Health Maintenance Due Date Last Done Comments Colon Cancer Screening-Colonoscopy 1971 Depression Screening 1971 Hepatitis C Screening 1971 DTaP/Tdap/Td Vaccine (1 - Tdap) 10/31/1982 Hepatitis B Screening 10/31/1989 Regular Well Visit/Exam 18-64 10/31/1989 Pneumococcal vaccine <65 (1 of 2 - PCV) 10/31/1990 Zoster Vaccine (1 of 2) 10/31/2021 Covid-19 Vaccine (3 - 2023-2 5 season) 2024 05/08/2021, 10/12/2020 Influenza Vaccine (Season Ended) 2025 09/07/2023, 07/18/2022, 05/24/2021, Additional history exists Prostate Cancer Screening-PSA 04/12/2025 04/12/2023 Procedures Procedure Name Priority Date/Time Associated Diagnosis [...] Large Ketones, ur, POC Negative Negative Specific [place], POC 1.020 1.003 - 1.030 Blood, ur, POC Hemolyzed, trace(A) Negative pH, ur, POC 6.0 5.0 - 8.0 Protein, ur, POC Negative Negative Urobilinogen, urine, POC 0.2 0.2 - 1.0 mg/dL Nitrite, ur, POC Negative Negative Leukocytes, ur, POC Small(A) Negative Lot Number [id number] Urine 10/28/2024 2:34 PM CDT Misty Jewell NP POINT OF CARE TEST ORDERAB LES Final Result * PSA screen (04/12/2023 3:24 AM CDT) PSA-Total 1.99 <=3.90 ng/mL MELISA RIZZO Comment: Interpretive Data AGE SEX REFERENCE [...] data last revised 21. Testing performed by: [facility], [address] [place] [address]., [id number] Blood 04/12/2023 3:24 AM CDT 04/12/2023 3:39 AM CDT Rasheed Kumrai MD LAB BLOOD ORDERABLES Final R esult MELISA [address] [facility] Department [place] [address] from Last 3 Months or Most Recently Relevant to Health Maintenance Insurance [facility] [place] [address] [employer] [facility] [place] [address] [employer] [facility] [place] [address] [facility] [employer] ADV[employer]AGE Advance Directives For more information, please contact: [phone] * Full Code (Latest Code Status on [...] 2:40 AM 04/18/2023 7:59 PM Care Teams [employer] Relationship Specialty Start Date End Date Pranav Jones MD PCP - General 01/10/17 Sandra Frazier, VINCENT Occupational Therapist Occupational Therapy 01/07/18 Madhuri Abdul, YENNIFER [id number] [place] [address] Physical Therapist Physical Therapy 12/20/21
--- OUTSIDE RECORDS SUMMARY | 2024-10-28 16:42 | XMS_ITS | Data Portability ---
Author Organization [facility], Main Office Address [address] [place] [address] Care Team Providers Care Rn Patient Services Name Role Phone ANUP JONES Primary Care Provider ANUP JONES Referring Provider Assessment Encounter Date Assessment Date Assessment LastModified by Organization Details LastModified Time 12/03/2023 12/03/2023 This note is dictated and transcribed by AddThis Software. Nurse Case Management variances may occur. Despite proofreading, typographical errors may occur. Occasional wrong-word or '[id number]' substitutions may have occurred due to the inherent limitations of voice recording. Read the chart carefully and recognize, using context, where substitutions have occurred. Not available 12/03/2023 18:11:55 12/12/2023 12/12/2023 This note is dictated and transcribed by AddThis Software. Nurse Case Management variances may occur. Despite proofreading, typographical errors may occur. Occasional wrong-word or '[id number]' substitutions may have occurred due to the inherent limitations of voice recording. Read the chart carefully and recognize, using context, where substitutions have occurred. Not available 12/12/2023 14:25:01 12/19/2023 12/19/2023 This note is dictated and transcribed by AddThis Software. Nurse Case Management variances may occur. Despite proofreading, typographical errors may occur. Occasional wrong-word or 'rctzl-[id number]' substitutions may have occurred due to the inherent limitations of voice recording. Read the chart carefully and recognize, using context, where substitutions have occurred. Not available 12/19/2023 17:02:16 03/26/2024 03/26/2024 This note is dictated and transcribed by [employer] Flu[employer] Direct Software. Nurse Case Management variances may occur. Despite proofreading, typographical errors may occur. Occasional wrong-word or 'znkej-f-bogm' substitutions may have occurred due to the inherent limitations of voice recording. Read the chart carefully and recognize, using context, where substitutions have occurred. [email or web address] Not available 03/26/2024 16:46:35 Plan of Treatment Reminders Order Date Submit Date Provider Last Modified By Organization Details Last Modified Time Details Appointments None recorded. Lab None recorded. Referral None recorded. Procedures None recorded. Surgeries None recorded. Imaging None recorded. Medication Orders ketoconazol e 2 % topical cream 2023 024 [id number], [address] [facility], [place], [place], [id number], 17:09:02 Patient TargetsNo targets recorded. Patient Instructions Encounter Date Encounter Id Patient Instructions Last Modified By Organization Details Last Modified Time 12/03/2023 [id number] wound care dressing instructions thomas Not available 12/03/2023 18:11:38 12/12/2023 [id number] wound care dressing instructions thomas Not available 12/12/2023 14:25:23 03/26/2024 [id number] paronychia: care instructions thomas Not available 03/26/2024 16:47:08 Reason for Referral None Reported. Results Created Date Observation Date Name Description Value Unit Range Abnormal Flag Note LastModifiedBy Organization Detail LastModifiedTime 11/21/1911/21/2023 CBC/C OMPLE TE BLD COUNT W/DIF F white blood cells 5.0 x10'3 /uL 4.2-10 .8 Not Available [facility] (Lab) [address] [place], [address], 11/21/2023 13:31:14 11/21/19 24 11/21/2023 CBC/C OMPLE TE BLD COUNT W/DIF F red blood cells 3.92 x10'6 /uL 4.10-5 .80 low Not Available [facility] (Lab) [address] [place], [address], 11/21/2023 13:31:14 11/21/19 24 11/21/2023 CBC/C OMPLE TE BLD COUNT W/DIF F hemoglobin 13.0 g/dL 13.2-1 7.0 low Not Available [facility] (Lab) [address] [place], [address], 11/21/2023 13:31:14 11/21/19 24 11/21/2023 CBC/C OMPLE TE BLD COUNT W/DIF F hematocrit 37.1 % 39.3-5 0.0 low Not Available [facility] (Lab) [address] [place], [address], 11/21/2023 13:31:14 11/21/19 24 11/21/2023 CBC/C OMPLE TE BLD COUNT W/DIF F mean red cell volume 94.6 fL 80.0-9 7.0 Not Available [facility] (Lab) [address] [place], [address], 11/21/2023 13:31:14 11/21/19 24 11/21/2023 CBC/C OMPLE TE BLD COUNT W/DIF F mean red cell hemoglobin 33.2 pg 27.0-3 3.0 high Not Available [facility] (Lab) [address] [place], [address], 11/21/2023 13:31:14 11/21/19 24 11/21/2023 CBC/C OMPLE TE BLD COUNT W/DIF F mean RBC HGB concentratio n 35.0 g/dL 31.0-3 6.0 Not Available [facility] (Lab) [address] [place], [address], 11/21/2023 13:31:14 11/21/19 24 11/21/2023 CBC/C OMPLE TE BLD COUNT W/DIF F red cell distribution width 12.8 % 11.8-1 5.5 Not Available [facility] (Lab) [address] [place], [address], 11/21/2023 13:31:14 11/21/19 24 11/21/2023 CBC/C OMPLE TE BLD COUNT W/DIF F platelets 192 x10'3 /uL 150-40 0 Not Available [facility] (Lab) [address] [place], [address], 11/21/2023 13:31:14 11/21/19 24 11/21/2023 CBC/C OMPLE TE BLD COUNT W/DIF F mean platelet volume 10.9 fL 9.0-12 .4 Not Available [facility] (Lab) [address] [place], [address], 11/21/2023 13:31:14 11/21/19 24 11/21/2023 CBC/C OMPLE TE BLD COUNT W/DIF F neutrophils 57.1 % 39.0-7 2.0 Not Available [facility] (Lab) [address] [place], [address], 11/21/2023 13:31:14 11/21/19 24 11/21/2023 CBC/C OMPLE TE BLD COUNT W/DIF F lymphocytes 29.9 % 16.0-4 7.0 Not Available [facility] (Lab) [address] [place], [address], 11/21/2023 13:31:14 11/21/1911/21/2023 CBC/C OMPLE TE BLD COUNT W/DIF F monocytes 10.2 % 5.0-12 .0 Not Available [facility] (Lab) [address] [place], [address], 11/21/2023 13:31:14 11/21/19 24 11/21/2023 CBC/C OMPLE TE BLD COUNT W/DIF F eosinophils 1.8 % 1.0-7. 0 Not Available [facility] (Lab) [address] [place], [address], 11/21/2023 13:31:14 11/21/1911/21/2023 CBC/C OMPLE TE BLD COUNT W/DIF F basophils 0.4 % 0.0-2. 0 Not Available [facility] (Lab) [address] [place], [address], 11/21/2023 13:31:14 11/21/1911/21/2023 CBC/C OMPLE TE BLD COUNT W/DIF F immature granulocytes 0.6 % 0.00-0 .50 high Not Available [facility] (Lab) [address] [place], [address], 11/21/2023 13:31:14 11/21/1911/21/2023 CBC/C OMPLE TE BLD COUNT W/DIF F neutrophils, absolute count 2.86 x10'3 /uL 1.5-8. 0 Not Available [facility] (Lab) [address] [place], [address], 11/21/2023 13:31:14 11/21/19 24 11/21/2023 CBC/C OMPLE TE BLD COUNT W/DIF F lymphocytes, absolute count 1.50 x10'3 /uL 1.07-3 .43 Not Available [facility] (Lab) [address] [place], [address], 11/21/2023 13:31:14 11/21/19 24 11/21/2023 CBC/C OMPLE TE BLD COUNT W/DIF F monocytes, absolute count 0.51 x10'3 /uL 0.29-0 .99 Not Available [facility] (Lab) [address] [place], [address], 11/21/2023 13:31:14 11/21/19 24 11/21/2023 CBC/C OMPLE TE BLD COUNT W/DIF F eosinophils, absolute count 0.09 x10'3 /uL 0.02-0 .53 Not Available [facility] (Lab) [address] [place], [address], 11/21/2023 13:31:14 11/21/19 24 11/21/2023 CBC/C OMPLE TE BLD COUNT W/DIF F basophils, absolute count 0.02 x10'3 /uL 0.01-0 .08 Not Available [facility] (Lab) [address] [place], [address], 11/21/2023 13:31:14 11/21/1911/21/2023 CBC/C OMPLE TE BLD COUNT W/DIF F immature granulocytes ,absolute 0.03 x10'3 /uL 0.00-0 .05 Not Available [facility] (Lab) [address] [place], [address], 11/21/2023 13:31:14 11/21/1911/21/2023 CBC/C OMPLE TE BLD COUNT W/DIF F nucleated red blood cells 0.0 % -0 Not Available [facility] (Lab) [address] [place], [address], 11/21/2023 13:31:14 11/21/19 24 11/21/2023 CBC/C OMPLE TE BLD COUNT W/DIF F NRBC# 0.00 x10'3 /uL Not Available [facility] (Lab) [address] [place], [address], 11/21/2023 13:31:14 11/21/1911/21/2023 LIPID PANEL cholesterol 226 mg/dL 140-19 9 high NIH HARI NSUS RECOM MENDA TION FOR TOMA STERO L: ADULT CHILD LOW RISK: <200 <170 BORDE RLINE : <200- 239 ----- HIGH RISK: >240 >200 Not Available [facility] (Lab) [address] [place], [address], 11/21/2023 17:17:22 11/21/19 24 11/21/2023 LIPID PANEL triglyceride s 153 mg/dL 0-150 high NIH HARI NSUS REPOR T RECOM MENDA TION FOR TRIGL YCERI [place]: ADULT CHILD LOW RISK: <150 ----- BODER LINE: 150-1 99 ----- HIGH RISK: >200 ----- Not Available [facility] (Lab) [address] [place], [address], 11/21/2023 17:17:22 11/21/19 24 11/21/2023 LIPID PANEL HDL cholesterol 63 mg/dL 40- Not Available [facility] (Lab) [address] [place], [address], 11/21/2023 17:17:22 11/21/19 24 11/21/2023 LIPID PANEL LDL cholesterol, calculated 132 mg/dL 0-130 high NIH HARI NSUS REPOR T RECOM MENDA TIONS FOR LDL: ADULT CHILD LOW RISK <130 <110 (OPTI MAL LDL) <100 ----- BORDE RLINE : 130-1 59 ----- HIGH RISK: >160 >130 A TRIGL YCERI DE RESUL T >400 INVAL IDATE S THE CALCU LATIO N FOR LDL FRACT IONAT ION - THE LDL RESUL T WILL NOT BE REPOR SPENSER. Not Available [facility] (Lab) [address] [place], [address], 11/21/2023 17:17:22 11/21/1911/21/2023 COMPR EHENS CARLEE METAB OLIC PANEL sodium 136 mmol/ L 137-14 5 low Not Available [facility] (Lab) [address] [place], [address], 11/21/2023 17:17:27 11/21/19 24 11/21/2023 COMPR EHENS CARLEE METAB OLIC PANEL potassium 4.2 mmol/ L 3.5-5. 1 Not Available [facility] (Lab) [address] [place], [address], 11/21/2023 17:17:27 11/21/19 24 11/21/2023 COMPR EHENS CARLEE METAB OLIC PANEL chloride 105 mmol/ L 98-107 Not Available [facility] (Lab) [address] [facility] [place], [address], 11/21/2023 17:17:27 11/21/19 24 11/21/2023 COMPR EHENS CARLEE METAB OLIC PANEL carbon dioxide 24 mmol/ L 22-30 Not Available [facility] (Lab) [address] [place], [address], 11/21/2023 17:17:27 11/21/19 24 11/21/2023 COMPR EHENS CARLEE METAB OLIC PANEL anion gap 11.2 mmol/ L 14-22 low Not Available [facility] (Lab) [address] [place], [address], 11/21/2023 17:17:27 11/21/19 24 11/21/2023 COMPR EHENS CARLEE METAB OLIC PANEL glucose 118 mg/dL 70-99 high Not Available [facility] (Lab) [address] [place], [address], 11/21/2023 17:17:27 11/21/19 24 11/21/2023 COMPR EHENS CARLEE METAB OLIC PANEL BUN 14 mg/dL 8-19 Not Available [facility] (Lab) [address] [place], [address], 11/21/2023 17:17:27 11/21/19 24 11/21/2023 COMPR EHENS CARLEE METAB OLIC PANEL creatinine 0.30 mg/dL 0.66-1 .25 low Not Available [facility] (Lab) [address] [place], [address], 11/21/2023 17:17:27 11/21/19 24 11/21/2023 COMPR EHENS CARLEE METAB OLIC PANEL GFR >60 Refer ence Range : Stafford ge GFR Healt hy Adult : >60 mL/mi n/1.7 3 m2 Chron ic Kidne y Disea se: 15-60 mL/mi n/1.7 3 m2 Kidne y Failu re: <15/m L/min /1.73 m2 www.n iddk. nih.g ov The MDRD study equat ion has not been valid ated in child cee <18 years of age; pregn ant women ; the elder ly >85 years of age; or in some racia l or ethni c subgr oups, such as Hispa nics. Outsi de the valid ated aarti eters , estim ated GFR is less accur ate, requi ring clini denise judgm ent on a case- by-ca se basis . Clini denise inter preta tion for other races and ages must be made by the clini dominic. The MDRD study equat ion has not been valid ated for the evalu ation of serum creat inine relat ed to nutri osmin l statu s or medic ation usage . For perso ns <18 years of age, a pedia tric GFR calcu lator is avail able on the [facility] websi te: https ://anselmo martinez.elizabeth velasquez/tony garcia s/kdo qi/gf r_cal culat or Not Available [facility] (Lab) [address] [place], [address], 11/21/2023 17:17:27 11/21/19 24 11/21/2023 COMPR EHENS CARLEE METAB OLIC PANEL alkaline phosphatase 88 U/L 38-126 Not Available [facility] (Lab) [address] [place], [address], 11/21/2023 17:17:27 11/21/19 24 11/21/2023 COMPR EHENS CARLEE METAB OLIC PANEL alanine aminotransfe rase 37 U/L 0-50 Not Available [facility] (Lab) [address] [place], [address], 11/21/2023 17:17:27 11/21/19 24 11/21/2023 COMPR EHENS CARLEE METAB OLIC PANEL aspartate aminotransfe rase 31 U/L 15-46 Not Available [facility] (Lab) [address] [place], [address], 11/21/2023 17:17:27 11/21/19 24 11/21/2023 COMPR EHENS CARLEE METAB OLIC PANEL bilirubin, total 0.90 mg/dL 0.20-1 .30 Not Available [facility] (Lab) [address] [place], [address], 11/21/2023 17:17:27 11/21/19 24 11/21/2023 COMPR EHENS CARLEE METAB OLIC PANEL calcium 9.7 mg/dL 8.4-10 .2 Not Available [facility] (Lab) [address] [place], [address], 11/21/2023 17:17:27 11/21/19 24 11/21/2023 COMPR EHENS CARLEE METAB OLIC PANEL total protein 7.0 g/dL 6.3-8. 2 Not Available [facility] (Lab) [address] [place], [address], 11/21/2023 17:17:27 11/21/1911/21/2023 COMPR EHENS CARLEE METAB OLIC PANEL albumin 4.4 g/dL 3.4-5. 0 Not Available [facility] (Lab) [address] [place], [address], 11/21/2023 17:17:27 11/21/19 24 11/21/2023 COMPR EHENS CARLEE METAB OLIC PANEL globulin 2.6 g/dL 2.6-4. 2 Not Available [facility] (Lab) [address] [place], [address], 11/21/2023 17:17:27 11/21/19 24 11/21/2023 COMPR EHENS CARLEE METAB OLIC PANEL A/G ratio 1.7 ratio 1.0-2. 0 Not Available [facility] (Lab) [address] [place], [address], 11/21/2023 17:17:27 11/21/19 24 11/21/2023 VITAM IN D 25-HY DROXY [id number] 46.1 NG/mL 30-100 Vitam in D Statu s: Defic ient: <20 ng/mL Insuf ficie nt: 20-29 ng/mL Suffi cient : 30-10 0 ng/mL Not Available [facility] (Lab) [address] [place], [address], 11/21/2023 17:59:00 11/21/19 24 11/21/2023 PSA SCREE N PSA medicare screen 1.22 NG/mL 0.00-4 .00 Not Available [facility] (Lab) [address] [place], [address], 11/21/2023 18:01:39 12/10/19 24 12/10/2023 CBC/C OMPLE TE BLD COUNT W/DIF F white blood cells 5.7 x10'3 /uL 4.2-10 .8 Not Available [facility] (Lab) [address] [place], [address], 12/10/2023 18:08:02 12/10/19 24 12/10/2023 CBC/C OMPLE TE BLD COUNT W/DIF F red blood cells 3.95 x10'6 /uL 4.10-5 .80 low Not Available [facility] (Lab) [address] [place], [address], 12/10/2023 18:08:02 12/10/19 24 12/10/2023 CBC/C OMPLE TE BLD COUNT W/DIF F hemoglobin 13.1 g/dL 13.2-1 7.0 low Not Available [facility] (Lab) [address] [place], [address], 12/10/2023 18:08:02 12/10/19 24 12/10/2023 CBC/C OMPLE TE BLD COUNT W/DIF F hematocrit 37.0 % 39.3-5 0.0 low Not Available [facility] (Lab) [address] [place], [address], 12/10/2023 18:08:02 12/10/19 24 12/10/2023 CBC/C OMPLE TE BLD COUNT W/DIF F mean red cell volume 93.7 fL 80.0-9 7.0 Not Available [facility] (Lab) [address] [place], [address], 12/10/2023 18:08:02 12/10/19 24 12/10/2023 CBC/C OMPLE TE BLD COUNT W/DIF F mean red cell hemoglobin 33.2 pg 27.0-3 3.0 high Not Available [facility] (Lab) [address] [place], [address], 12/10/2023 18:08:02 12/10/19 24 12/10/2023 CBC/C OMPLE TE BLD COUNT W/DIF F mean RBC HGB concentratio n 35.4 g/dL 31.0-3 6.0 Not Available [facility] (Lab) [address] [place], [address], 12/10/2023 18:08:02 12/10/19 24 12/10/2023 CBC/C OMPLE TE BLD COUNT W/DIF F red cell distribution width 12.1 % 11.8-1 5.5 Not Available [facility] (Lab) [address] [place], [address], 12/10/2023 18:08:02 12/10/19 24 12/10/2023 CBC/C OMPLE TE BLD COUNT W/DIF F platelets 220 x10'3 /uL 150-40 0 Not Available [facility] (Lab) [address] [place], [address], 12/10/2023 18:08:02 12/10/19 24 12/10/2023 CBC/C OMPLE TE BLD COUNT W/DIF F mean platelet volume 10.4 fL 9.0-12 .4 Not Available [facility] (Lab) [address] [place], [address], 12/10/2023 18:08:02 12/10/19 24 12/10/2023 CBC/C OMPLE TE BLD COUNT W/DIF F neutrophils 58.6 % 39.0-7 2.0 Not Available [facility] (Lab) [address] [place], [address], 12/10/2023 18:08:02 12/10/19 24 12/10/2023 CBC/C OMPLE TE BLD COUNT W/DIF F lymphocytes 28.1 % 16.0-4 7.0 Not Available [facility] (Lab) [address] [place], [address], 12/10/2023 18:08:02 12/10/19 24 12/10/2023 CBC/C OMPLE TE BLD COUNT W/DIF F monocytes 9.6 % 5.0-12 .0 Not Available [facility] (Lab) [address] [place], [address], 12/10/2023 18:08:02 12/10/19 24 12/10/2023 CBC/C OMPLE TE BLD COUNT W/DIF F eosinophils 2.5 % 1.0-7. 0 Not Available [facility] (Lab) [address] [place], [address], 12/10/2023 18:08:02 12/10/19 24 12/10/2023 CBC/C OMPLE TE BLD COUNT W/DIF F basophils 0.7 % 0.0-2. 0 Not Available [facility] (Lab) [address] [place], [address], 12/10/2023 18:08:02 12/10/19 24 12/10/2023 CBC/C OMPLE TE BLD COUNT W/DIF F immature granulocytes 0.5 % 0.00-0 .50 Not Available [facility] (Lab) [address] [place], [address], 12/10/2023 18:08:02 12/10/19 24 12/10/2023 CBC/C OMPLE TE BLD COUNT W/DIF F neutrophils, absolute count 3.34 x10'3 /uL 1.5-8. 0 Not Available [facility] (Lab) [address] [place], [address], 12/10/2023 18:08:02 12/10/19 24 12/10/2023 CBC/C OMPLE TE BLD COUNT W/DIF F lymphocytes, absolute count 1.60 x10'3 /uL 1.07-3 .43 Not Available [facility] (Lab) [address] [place], [address], 12/10/2023 18:08:02 12/10/19 24 12/10/2023 CBC/C OMPLE TE BLD COUNT W/DIF F monocytes, absolute count 0.55 x10'3 /uL 0.29-0 .99 Not Available [facility] (Lab) [address] [place], [address], 12/10/2023 18:08:02 12/10/19 24 12/10/2023 CBC/C OMPLE TE BLD COUNT W/DIF F eosinophils, absolute count 0.14 x10'3 /uL 0.02-0 .53 Not Available [facility] (Lab) [address] [place], [address], 12/10/2023 18:08:02 12/10/19 24 12/10/2023 CBC/C OMPLE TE BLD COUNT W/DIF F basophils, absolute count 0.04 x10'3 /uL 0.01-0 .08 Not Available [facility] (Lab) [address] [place], [address], 12/10/2023 18:08:02 12/10/19 24 12/10/2023 CBC/C OMPLE TE BLD COUNT W/DIF F immature granulocytes ,absolute 0.03 x10'3 /uL 0.00-0 .05 Not Available [facility] (Lab) [address] [place], [address], 12/10/2023 18:08:02 12/10/19 24 12/10/2023 CBC/C OMPLE TE BLD COUNT W/DIF F nucleated red blood cells 0.0 % -0 Not Available [facility] (Lab) [address] [place], [address], 12/10/2023 18:08:02 12/10/19 24 12/10/2023 CBC/C OMPLE TE BLD COUNT W/DIF F NRBC# 0.00 x10'3 /uL Not Available [facility] (Lab) [address] [place], [address], 12/10/2023 18:08:02 12/10/19 24 12/10/2023 COMPR EHENS CARLEE METAB OLIC PANEL sodium 133 mmol/ L 137-14 5 low Not Available [facility] (Lab) [address] [place], [address], 12/10/2023 18:26:21 12/10/19 24 12/10/2023 COMPR EHENS CARLEE METAB OLIC PANEL potassium 3.7 mmol/ L 3.5-5. 1 Not Available [facility] (Lab) [address] [place], [address], 12/10/2023 18:26:21 12/10/19 24 12/10/2023 COMPR EHENS CARLEE METAB OLIC PANEL chloride 101 mmol/ L 98-107 Not Available [facility] (Lab) [address] [place], [address], 12/10/2023 18:26:21 12/10/19 24 12/10/2023 COMPR EHENS CARLEE METAB OLIC PANEL carbon dioxide 22 mmol/ L 22-30 Not Available [facility] (Lab) [address] [place], [address], 12/10/2023 18:26:21 12/10/19 24 12/10/2023 COMPR EHENS CARLEE METAB OLIC PANEL anion gap 13.7 mmol/ L 14-22 low Not Available [facility] (Lab) [address] [place], [address], 12/10/2023 18:26:21 12/10/19 24 12/10/2023 COMPR EHENS CARLEE METAB OLIC PANEL glucose 118 mg/dL 70-99 high Not Available [facility] (Lab) [address] [place], [address], 12/10/2023 18:26:21 12/10/19 24 12/10/2023 COMPR EHENS CARLEE METAB OLIC PANEL BUN 10 mg/dL 8-19 Not Available [facility] (Lab) [address] [place], [address], 12/10/2023 18:26:21 12/10/19 24 12/10/2023 COMPR EHENS CARLEE METAB OLIC PANEL creatinine 0.28 mg/dL 0.66-1 .25 low Not Available [facility] (Lab) [address] [place], [address], 12/10/2023 18:26:21 12/10/19 24 12/10/2023 COMPR EHENS CARLEE METAB OLIC PANEL GFR >60 Refer ence Range : Stafford ge GFR Healt hy Adult : >60 mL/mi n/1.7 3 m2 Chron ic Kidne y Disea se: 15-60 mL/mi n/1.7 3 m2 Kidne y Failu re: <15/m L/min /1.73 m2 www.n iddk. nih.g ov The MDRD study equat ion has not been valid ated in child cee <18 years of age; pregn ant women ; the elder ly >85 years of age; or in some racia l or ethni c subgr oups, such as Hispa nics. Outsi de the valid ated aarti eters , estim ated GFR is less accur ate, requi ring clini denise judgm ent on a case- by-ca se basis . Clini denise inter preta tion for other races and ages must be made by the clini dominic. The MDRD study equat ion has not been valid ated for the evalu ation of serum creat inine relat ed to nutri osmin l statu s or medic ation usage . For perso ns <18 years of age, a pedia tric GFR calcu lator is avail able on the [facility] websi te: https ://anselmo w.kid michelle.o rg/pr ofess ional s/kdo qi/gf r_cal culat or Not Available [facility] (Lab) [address] [place], [address], 12/10/2023 18:26:21 12/10/19 24 12/10/2023 COMPR EHENS CARLEE METAB OLIC PANEL alkaline phosphatase 78 U/L 38-126 Not Available [facility] (Lab) [address] [place], [address], 12/10/2023 18:26:21 12/10/19 24 12/10/2023 COMPR EHENS CARLEE METAB OLIC PANEL alanine aminotransfe rase 42 U/L 0-50 Not Available [facility] (Lab) [address] [place], [address], 12/10/2023 18:26:21 12/10/19 24 12/10/2023 COMPR EHENS CARLEE METAB OLIC PANEL aspartate aminotransfe rase 33 U/L 15-46 Not Available [facility] (Lab) [address] [place], [address], 12/10/2023 18:26:21 12/10/19 24 12/10/2023 COMPR EHENS CARLEE METAB OLIC PANEL bilirubin, total 0.60 mg/dL 0.20-1 .30 Not Available [facility] (Lab) [address] [place], [address], 12/10/2023 18:26:21 12/10/19 24 12/10/2023 COMPR EHENS CARLEE METAB OLIC PANEL calcium 9.2 mg/dL 8.4-10 .2 Not Available [facility] (Lab) [address] [place], [address], 12/10/2023 18:26:21 12/10/19 24 12/10/2023 COMPR EHENS CARLEE METAB OLIC PANEL total protein 7.2 g/dL 6.3-8. 2 Not Available [facility] (Lab) [address] [place], [address], 12/10/2023 18:26:21 12/10/19 24 12/10/2023 COMPR EHENS CARLEE METAB OLIC PANEL albumin 4.4 g/dL 3.4-5. 0 Not Available [facility] (Lab) [address] [place], [address], 12/10/2023 18:26:21 12/10/19 24 12/10/2023 COMPR EHENS CARLEE METAB OLIC PANEL globulin 2.8 g/dL 2.6-4. 2 Not Available [facility] (Lab) [address] [place], [address], 12/10/2023 18:26:21 12/10/19 24 12/10/2023 COMPR EHENS CARLEE METAB OLIC PANEL A/G ratio 1.6 ratio 1.0-2. 0 Not Available [facility] (Lab) [address] [facility] [place], [address], 12/10/2023 18:26:21 Result Notes None recorded. Problems Name Problem SNOMED Code Status Onset Date Resolution Date Notes Provider Name and Address Organization Details Recorded Time Renewal of prescripti on Active 2021 Not Available [facility] 3 06:35:24 Impacted cerumen of bilateral ears 9140392812313 108 Active 2021 Not Available [facility] 3 06:35:24 Impacted cerumen in left ear 5842197170385 101 Active 2021 Not Available [facility] 3 06:35:24 History of lower extremity skin ulcer 4450028704219 03 Active 2019 Not Available [facility] 3 06:35:24 Recurrent urinary tract infection 180170625 Active 2021 Not Available [facility] 3 06:35:24 Quadripleg ia with quadripare sis 8890678851626 0 Active 2018 Not Available [facility] 3 06:35:24 Unable to cut own toenails 000742079 Active 2022 Not Available [facility] 3 06:35:24 Blood in urine 53979921 Active Not Available [facility] 3 06:35:24 Dyslipidem ia 185627692 Active 2017 Not Available [facility] 3 06:35:24 Onychomyco sis 600587034 Active 2019 Not Available [facility] 3 06:35:24 Anxiety 37061723 Active 2016 Not Available [facility] 3 06:35:24 Hyperlipid emia 16769149 Active 2021 Not Available [facility] 3 06:35:24 Urinary tract infectious disease 83407909 Active 2021 Not Available [facility] 3 06:35:24 Spinal cord injury 51738993 Active Not Available [facility] 3 06:35:25 Dystrophia unguium 61571803 Active 2022 Not Available [facility] 3 06:35:25 Muscle weakness 85022303 Active 2022 Not Available [facility] 3 06:35:24 Blister of foot with infection 08912720 Active 2023 Jordi Quiles DPM [address], [address], [place], [address] , [employer] 4 18:10:33 Cellulitis of left foot 7802776198030 9101 Active 2023 Jordi Quiles DPM [address], [address], [place], [address] , [employer] 4 18:14:29 Onychomyco sis of toenails 249564774 Active 2023 Jordi Quiles DPM [address], [address], [place], [address] , [employer] 4 17:02:44 Notes:Some problems listed i n Document: #[id number] could not be added to this patient's chart. Please review this document and add these problems to the patient's chart manually as needed. Problem Notes None recorded. Procedures Surgical History Date Name Laterality Status Provider Name and Address Organization Details Recorded Time 03/26/20 24 Toenail avulsion completed Jordi Quiles DPM [address], [address], [place], [address], [employer] 03/26/2024 16:46:31 12/19/19 24 Nail Debridement completed Jordi Quiles DPM [address], [address], [place], [address], [employer] 12/19/2023 17:24:42 12/19/19 24 Wound Care-Podiatry completed Traci Celeste RN [employer] 12/19/2023 16:58:34 12/12/19 24 Wound Care-Podiatry completed Helena Lewis RN [employer] 12/12/2023 14:19:30 12/03/19 24 Wound Care-Podiatry completed Jordi Quiles DPM [address], [facility] [address], [place], [address], [facility] [employer] [facility] 12/04/2023 12:26:02 01/30/20 23 Nail Debridement completed Jrodi Quiles DPM [address], [facility] [address], [place], [address], [facility] [employer] [facility] 01/31/2023 14:08:20 06/26/20 17 Bladder completed Not Available [facility] 3 02:44:54 repair of spinal cord completed Not Available [facility] 09/27/2022 02:44:54 Imaging Results None recorded. Procedure Notes None recorded. Medical Equipment None Reported. Allergies Allergen ID Allergen Name Allergen Category Reaction Reaction Severity Criticality Documentation Date Start Date Code Code System Note Provider Name and Address Organization Details Recorded Time 4558 ampicilli n medicatio n hives moderate Not available 09/27/20222018 733 RxNorm Not Available [facility] 3 02:59:02 Medications Name Sig Start Date Stop Date Status Note LastModified by Organization Details LastModified Time multivitami n tablet Take by oral route. 2017 active Not Available Not Available Not Avai lable doxycycline hyclate 100 mg capsule 07/18 completed Not Available Not Available Not Available trazodone 50 mg tablet TK 1/2 T PO HS PRN FOR INSOMNIA 03/15 completed Not Available Not Available Not Available atorvastati n 10 mg tablet TAKE 1 TABLET BY MOUTH EVERY DAY active Not Available Not Available No t Available clarithromy bushra 250 mg tablet 10/16 completed Not Available Not Available Not Available ampicillin 500 mg capsule TK 1 C PO QID 05/15 completed Not Available Not Available Not Available clarithromy bushra 500 mg tablet TK 1 T PO BID 10/16 completed Not Available Not Available Not Available tolterodine ER 4 mg capsule,ext ended release 24 hr TK 1 C PO QD 11/19 completed Not Available Not Available Not Available cephalexin 250 mg capsule TAKE 1 CAPSULE BY MOUTH EVERY 6 HOURS FOR 7 DAYS 01/26 completed Not Available Not Available Not Available Levaquin 750 mg tablet Take 1 tablet every day by oral route. 10/16 completed Not Available Not Available Not Available cefepime 2 gram solution for injection 05/15 completed Not Available Not Available Not Available sertraline 100 mg tablet TAKE 1 TABLET BY MOUTH DAILY active Not Available Not Available No t Available Milk of Magnesia 400 mg/5 mL oral suspension 03/15 completed Not Available Not Available Not Available metronidazo le 500 mg tablet 12/11 completed Not Available Not Available Not Available ciprofloxac in 500 mg tablet TAKE 1 TABLET BY MOUTH TWICE DAILY 12/03 completed Not Available Not Available Not Available sulfamethox azole 800 mg-trimetho prim 160 mg tablet TAKE 1 TABLET BY MOUTH TWICE DAILY FOR 7 DAYS 12/03 completed Not Available Not Available Not Available acetaminoph en 500 mg tablet Take 2 tablets every 4 hours by oral route as needed. 04/19 completed Not Available Not Available Not Available baclofen 20 mg tablet TAKE 2 TABLETS AT 6AM, 2 TABLETS AT 2PM, AND 3 TABLETS AT BEDTIME 11/19 completed Not Available Not Available Not Available baclofen 10 mg tablet TK 2 TS PO AT 6AM AND AT 2PM AND TK 3 TS HS active Not Available Not Available No t Available cephalexin 500 mg capsule Take 1 capsule 3 times a day by oral route for 7 days. active Not Available Not Available No t Available pantoprazol e 40 mg tablet,jermain yed release TAKE 1 TABLET BY MOUTH EVERY DAY 03/15 completed Not Available Not Available Not Available ferrous sulfate 325 mg (65 mg iron) tablet 07/18 completed Not Available Not Available Not Available gentian kimber 2 % topical solution apply to web spaces once weekly 11/16 completed Not Available Not Available Not Available Mapap (acetaminop hen) 325 mg tablet 03/15 completed Not Available Not Available Not Available oxybutynin chloride ER 5 mg tablet,exte nded release 24 hr 12/11 completed Not Available Not Available Not Available sertraline 25 mg tablet Take 1 tablet every day by oral route. 02/09 completed Not Available Not Available Not Available omeprazole 20 mg capsule,del ayed release TK 1 C PO QD 03/15 completed Not Available Not Available Not Available folic acid 1 mg tablet 03/15 completed Not Available Not Available Not Available insulin syringe U-100 with needle 1 mL 31 gauge x 12/12 UTD 03/15 completed Not Available Not Available Not Available bisacodyl 5 mg tablet,jermain yed release TK 1 T PO QD PRN 04/19 completed Not Available Not Available Not Available ampicillin 250 mg capsule Take 1 capsule 3 times a day by oral route for 7 days. 02/14 completed Not Available Not Available Not Available mupirocin 2 % topical ointment TEODORO AA ONCE A DAY active Not Available Not Available No t Available [place] 10 mg-325 mg tablet 1-2 tablets every 4-6 hours prn 10/16 completed Not Available Not Available Not Available ergocalcife rol (vitamin D2) 1,250 mcg (50,000 unit) capsule TAKE 1 CAPSULE BY MOUTH EVERY WEEK active Not Available Not Available No t Available warfarin 1 mg tablet TAKE 1 TABLET BY MOUTH EVERY DAY active Not Available Not Available No t Available polyethylen e glycol 3350 17 gram/dose oral powder 03/15 completed Not Available Not Available Not Available levofloxaci n 500 mg tablet TK 1 T PO QD 05/29 completed Not Available Not Available Not Available ketoconazol e 2 % topical cream APPLY TO AFFECTED AREA ON FIFTH RIGHT TOE ONCE A DAY active Not Available Not Available No t Available Vitamin B-1 100 mg tablet Take 1 tablet every day by oral route. 03/15 completed Not Available Not Available Not Available cefdinir 300 mg capsule TAKE 1 CAPSULE BY MOUTH TWICE DAILY 02/15 completed Not Available Not Available Not Available sertraline 50 mg tablet TK 1 T PO QD 07/07 completed Not Available Not Available Not Available heparin (porcine) 5,000 unit/mL injection solution 03/15 completed Not Available Not Available Not Available loratadine 10 mg tablet 03/15 completed Not Available Not Available Not Available amoxicillin 875 mg-potassiu m clavulanate 125 mg tablet Take 1 tablet twice a day by oral route. 10/16 completed Not Available Not Available Not Available oxycodone 5 mg tablet 1 tablet every 4hrs as needed for pain rated 4-6 2 tablets every 4hrs as needed for pain rated 7-10, 03/15 completed Not Available Not Available Not Available enoxaparin 40 mg/0.4 mL subcutaneou s syringe 03/15 completed Not Available Not Available Not Available ezetimibe 10 mg tablet TAKE 1 TABLET BY MOUTH EVERY DAY active Not Available Not Available No t Available nitrofurant oin monohydrate /macrocryst als 100 mg capsule 02/13 completed Not Available Not Available Not Available Vesicare 10 mg tablet 1 pod 11/19 completed Not Available Not Available Not Available melatonin 04/19 completed Not Available Not Available Not Available Milk of Magnesia 04/19 completed Not Available Not Available Not Available Vitamin C 2020 active Not Available Not Available Not Avai lable Miralax 2017 active Not Available Not Available Not Avai lable vitamin B comp and C no.3 2017 active Not Available Not Available Not Avai lable Senexon-S 8.6 mg-50 mg tablet TAKE 1 TABLET BY MOUTH TWICE DAILY NEEDED active Not Available Not Available No t Available Probiotic 2020 active Not Available Not Available Not Avai lable Complete Multivitami n-Multimine ral 18 mg-400 mcg tablet 06/15 completed Not Available Not Available Not Available Vitamin D2 10/17 completed Not Available Not Available Not Available Renacidin 1980.6 mg-59.4mg-9 80.4mg/30mL irrigation solution Instill 30 mL 3 times a day by intravesi denise route as directed. 11/19 completed Not Available Not Available Not Available Clenpiq 10 mg-3.5 gram-12 gram/160 mL oral solution TAKE 2 DOSES DIRECTED 03/15 completed Not Available Not Available Not Available Vitals Date Recorded Body height Body mass index (BMI) Body weight Body temperature Provider Name and Address Organization Details Last Updated DateTime 05/30/2023 175.26 cm 30.3 kg/m2 86188.44 g 97.8 [degF] Henny Sher RN [place] [facility] 05/30/2023 14:02:09 Date Recorded Body height Body mass index (BMI) Body weight Heart rate Respiratory rate Body temperature Oxygen saturation Oxygen saturation in Arterial blood by Pulse oximetry Systolic blood pressure Diastolic blood pressure Provider Name and Address Organization Details Last Updated DateTime 4 175.26 cm 30.3 kg/m2 87900.4 4 g 76 /min 16 /min 97.8 [degF] 97 % 97 % 140 mm[Hg] 80 mm[Hg] Allison Motta [facility] [employer] [facility] 4 17:30:42 Date Recorded Body height Body temperature Oxygen saturation Oxygen saturation in Arterial blood by Pulse oximetry Respiratory rate Heart rate Systolic blood pressure Diastolic blood pressure Provider Name and Address Organization Details Last Updated DateTime 4 175.26 cm 98.2 [degF] 97 % 97 % 20 /min 75 /min 85 mm[Hg] 51 mm[Hg] Helena Lewis RN [facility] [employer] [facility] 4 14:17:13 Date Recorded Body height Body temperature Respiratory rate Heart rate Oxygen saturation Oxygen saturation in Arterial blood by Pulse oximetry Systolic blood pressure Diastolic blood pressure Provider Name and Address Organization Details Last Updated DateTime 4 175.26 cm 97.7 [degF] 20 /min 70 /min 95 % 95 % 92 mm[Hg] 56 mm[Hg] Traci Celeste RN [facility] [employer] [facility] 4 16:40:03 Date Recorded Body height Body mass index (BMI) Body weight Heart rate Respiratory rate Oxygen saturation Oxygen saturation in Arterial blood by Pulse oximetry Body temperature Systolic blood pressure Diastolic blood pressure Provider Name and Address Organization Details Last Updated DateTime 4 175.26 cm 30.3 kg/m2 20354.4 4 g 70 /min 16 /min 95 % 95 % 97.7 [degF] 120 mm[Hg] 70 mm[Hg] Allison Shaftsbury [facility] [employer] [facility] 4 16:01:48 Social History Question Answer Notes LastModified by Organizat ion Details LastModified Time Tobacco Smoking Status Never Smoker Not Available [employer] 09/27/2022 02:35:48 Do You Have An Advance Directive? No [id number] Information not available 09/27/2022 What Is Your Level Of Alcohol Consumption? Occasional MIGRATION.[id number] Information not available 09/27/2022 What Is Your Level Of Caffeine Consumption? None MIGRATION.[id number] Information not available 09/27/2022 How Much Tobacco Do You Chew? None MIGRATION.[id number] 5081 Information not available 09/27/2022 In The 14 Days Before Symptom Onset, Have You Had Close Contact With A Laboratory-confir med COVID-19 While That Case Was Ill? No MIGRATION.[id number] Information not available 09/27/2022 In The 14 Days Before Symptom Onset, Have You Had Close Contact With A Person Who Is Under Investigation For COVID-19 While That Person Was Ill? No MIGRATION.211031 7101 Information not available 09/27/2022 Are You Currently Employed? No [email or web address] Information not available 10/17/2022 What Type Of Diet Are You Following? REGULAR MIGRATION.242726 6693 Information not available 09/27/2022 Which Illicit Or Recreational Drugs Have You Used? None MIGRATION.[id number] 7067 Information not available 09/27/2022 Do You Or Have You Ever Used E-cigarettes Or Vape? Never Used Electronic Cigarettes MIGRATION.[id number] 8948 Information not available 09/27/2022 What Is The Highest Grade Or Level Of School You Have Completed Or The Highest Degree You Have Received? [id number] MIGRATION.503046 1172 Information not available 09/27/2022 What Is Your Occupation? Disabled MIGRATION.406179 6010 Information not available 09/27/2022 Have There Been Any Changes To Your Family Or Social Situation? No MIGRATION.284347 9235 Information not available 09/27/2022 What Is The Fluoride Status Of Your Home? Unknown MIGRATION.972151 0242 Information not available 09/27/2022 Are There Any Guns Present In Your Home? No MIGRATION.316037 4600 Information not available 09/27/2022 Do You Use Insect Repellent Routinely? No MIGRATION.612139 3691 Information not available 09/27/2022 Where Do You Live? Condo MIGRATION.342020 8377 Information not available 09/27/2022 Do You Have A Medical Power Of Manager Customer? No MIGRATION.645928 1090 Information not available 09/27/2022 What Was The Date Of Your Most Recent Tobacco Screening? 05/15/2023 [email or web address] Information not available 05/15/2023 Have You Ever Been Counseled For Unhealthy Alcohol Use? No MIGRATION.183495 9574 Information not available 09/27/2022 Do You Have Any Pets? No MIGRATION.931141 0715 Information not available 09/27/2022 What Is Your Relationship Status? Single MIGRATION.498651 2821 Information not available 09/27/2022 Do You Use Your Seat Belt Or Car Seat Routinely? Yes MIGRATION.086111 3033 Information not available 09/27/2022 Do You Have Smoke And Carbon Monoxide Detectors In Your Home? Yes MIGRATION.131896 1998 Information not available 09/27/2022 Are You Passively Exposed To Smoke? No MIGRATION.586934 2934 Information not available 09/27/2022 Do You Or Have You Ever Used Smokeless Tobacco? Never Used Smokeless Tobacco MIGRATION.319782 3685 Information not available 09/27/2022 Are There Any Smokers In Your House? No MIGRATION.645163 6736 Information not available 09/27/2022 How Much Tobacco Do You Smoke? No MIGRATION.014371 7068 Information not available 09/27/2022 What Types Of Sporting Activities Do You Participate In? None MIGRATION.824291 3131 Information not available 09/27/2022 Do You Feel Stressed (tense, Restless, Nervous, Or Anxious, Or Unable To Sleep At Night)? [id number] MIGRATION.704547 0099 Information not available 09/27/2022 Do You Use Any Illicit Or Recreational Drugs? No MIGRATION.010699 5279 Information not available 09/27/2022 Do You Use Sunscreen Routinely? No MIGRATION.993185 9585 Information not available 09/27/2022 Has Tobacco Cessation Counseling Been Provided? No MIGRATION.097347 5301 Information not available 09/27/2022 How Many Years Have You Smoked Tobacco? 0 MIGRATION.675259 6946 Information not available 09/27/2022 Have You Recently Traveled Abroad? No MIGRATION.849496 3634 Information not available 09/27/2022 Do You Have Any Dietary Restrictions? No MIGRATION.876541 4766 Information not available 09/27/2022 Do You Or Have You Ever Used Any Other Forms Of Tobacco Or Nicotine? No MIGRATION.273605 7352 Information not available 09/27/2022 Sex: Male Functional Status Question Answer Note LastModified by Organizat ion Details LastModified Time What is your exercise level? None [id number].[id number] Information not available 09/27/2022 Mental Status None recorded. Family History Relationship Description Onset Age of this Age Resolved Age Notes LastModified by Organization Details LastModified Time Father No current problems or disability [id number] Not available 09/27/2022 02:44:58 Mother Anxiety [id number] Not available 09/27/2022 02:44:58 Mother Diverticulit is MIGRATION.[id number] Not available 09/27/2022 02:44:58 Notes:NO ENT Medical History Condition Response BLINDNESS N RHEUMATIC FEVER N KIDNEY STONES N CARPAL TUNNEL SYNDROME N OTHER # 1 Y LUNG DISEASE/DISORDER N HISTORY OF DRUG ABUSE N RADIATION / CHEMOTHERAPY N COPD N Other # 2 N BLOOD DISEASES N SURGERY N EAR OR HEARING PROBLEMS Y PAST SPINAL SURGERY N SCHIZOPHRENIA N DEPRESSION (INCLUDING POST ) Y BOWEL PROBLEMS N STROKE/TIA N LYMPHEDEMA N BENIGN PROSTATIC HYPERPLASIA N PARAPELGIA N OBESITY N GERD/NAUSEA N ANEURYSM N CORONARY ARTERY DISEASE (CAD) N USE OF BLOOD THINNERS N EMPHYSEMA N GASTROINTESTINAL DISORDER N PERIPHERAL VASCULAR DISEASE N GASTROINTESTINAL BLEEDING N STOMACH ULCERS N BLOOD CLOTS N PAST HISTORY OF VEHICULAR ACCIDENT N ERECTILE DYSFUNCTION N GI PROBLEMS N CHF N NEUROPATHY N AIDS/HIV N HYPERTENSION N BLOOD TRANSFUSION N ANEMIA/BLOOD DISORDER N BIPOLAR DISORDER N BRONCHITIS N OSTEOARTHRITIS N TUBERCULOSIS N GLAUCOMA N FOOT PROBLEM N HEART VALVE DISORDERS N ALLERGIES/HAYFEVER N INFECTIOUS DISEASE N HEART ARRHYTHMIA N PROSTATE N INSOMNIA N PAST INTERVENTIONAL PAIN MANAGEMENT HIST ORY N PAST MEDICATION HISTORY N RHEUMATOID ARTHRITIS N HIGH CHOLESTEROL / HYPERLIPIDEMIA Y EYE PROBLEMS N HYPERTHYROIDISM N NEUROLOGICAL PROBLEMS N EDEMA N HYPOTHYROIDISM N CAROTID BLOCKAGE N CONSTIPATION N BACK / NECK PROBLEMS Y HAVE YOU BEEN HOSPITALIZED OR SEEN IN [facility] IN THE PAST YEAR ? N BURSITIS N HERNIATED DISC N DIALYSIS N HISTORY WITH COMPLICATIONS WITH ANESTHES IA ? N FIBROMYALGIA N OSTEOPOROSIS N ARTHRITIS N RESPIRATORY PROBLEMS N PAST HISTORY OF FALL N PERIPHERAL NEUROPATHY N DIABETES, TYPE N HEARTBURN / REFLUX N AFIB N HEPATITIS / LIVER DISEASE N GOUT N ALZHEIMER'S DISEASE N PAIN N HERPES N SEIZURES/EPILEPSY N HEADACHES/MIGRAINES N DIZZINESS N HEAD TRAUMA OR INJURY N HEART DISEASE/HEART PROBLEMS N MULTIPLE SCLEROSIS N NEUROPSYCHOLOGICAL N CARDIAC ARRHYTHMIA N CANCER: SPECIFY N ANESTHESIA COMPLICATIONS N ATRIAL FIBRILLATION N AUTOIMMUNE DISEASE N Immunizations Vaccine Type Date Status Note Provider Nam e and Address Organization Details Recorded Time COVID-19, mRNA, LNP-S, PF, 30 mcg/0.3 mL dose 05/08/2021 completed Not Available [employer] 10/18/202 3 06:35:25 COVID-19 vaccine, vector-nr, rS-Ad26, PF, 0.5 mL 10/12/2020 completed Not Available [facility] 3 06:35:25 Influenza, split virus, quadrivalent, PF 07/18/2022 completed Not Available [facility] 3 06:35:25 Influenza, split virus, quadrivalent, PF 05/24/2021 completed Not Available [facility] 3 06:35:25 Influenza, split virus, quadrivalent, PF 07/15/2019 completed Not Available [facility] 3 06:35:25 Influenza, split virus, quadrivalent, PF 06/15/2020 completed Not Available [facility] 3 06:35:25 Influenza, split virus, quadrivalent, PF 05/23/2018 completed Not Available [facility] 3 06:35:25 Past Encounters Encounter ID Performer Location Encounter Start Date Encounter Closed Date Diagnosis/Indication Diagnosis SNOMED-CT Code Diagnosis ICD10 Code Diagnosis Note [id number] [facility] [place] [address] [place] [address] 10/11/2020 00:00:00 10/14/2020 14:40:02 [id number] [facility] [place] [address] 11/16/2020 00:00:00 11/16/2020 22:02:51 [id number] [facility] [address] 02/15/2021 00:00:00 02/15/2021 21:57:43 [id number] [facility] [place] [address] [place] [address] 03/31/2021 00:00:00 04/03/2021 14:11:56 [id number] [facility] ENT [place] [address] [place] [address] 04/13/2021 00:00:00 04/13/2021 14:19:36 [id number] [facility] [place] [address] , [place] [address] 05/24/2021 00:00:00 05/24/2021 22:35:57 [id number] [facility] [place] [address] [place] [address] 08/25/2021 00:00:00 08/25/2021 14:50:13 [id number] [facility] [place] [address] , [place] [address] 09/20/2021 00:00:00 09/20/2021 22:21:49 [id number] [facility] [place] [address] [place] [address] 12/01/2021 00:00:00 12/03/2021 12:37:21 [id number] [facility] [place] [address] , [place] [address] 12/27/2021 00:00:00 01/14/2022 15:57:43 [id number] [facility] [place] [address] [facility] [address] , [place] [address] 01/26/2022 00:00:00 02/05/2022 15:35:01 [id number] [facility] [place] [address] [place] [address] 03/16/2022 00:00:00 03/16/2022 11:32:29 [id number] [facility] [place] [address] [facility] [address] , [place] [address] 04/25/2022 00:00:00 05/28/2022 11:22:16 [id number] [facility] [place] [address] [place] [address] 05/01/2022 00:00:00 05/01/2022 14:02:50 [id number] [facility] Internal Med [place] [address] [place] [address] [place] [address] 07/18/2022 00:00:00 07/21/2022 14:08:11 [id number] [facility] Podiat[facility] [place] [address] [facility] [address] [place] [address] 08/21/2022 00:00:00 08/26/2022 09:20:57 [id number] Anup Jones MD [facility] Internal [facility] [place] [address] [place] [address] [place] [address] 10/17/2022 14:38:31 10/17/2022 16:30:51 Hyperlipidemia 29554630 E78.5 Long-term drug therapy 470726434 Z79.899 Screening for malignant neoplasm of prostate 610962629 Z12.5 [id number] Jordi Quiles DPM [facility] Podiat[facility] [place] [address] [facility] [address] [place] [address] 01/29/2023 14:49:29 02/01/2023 11:44:37 Dystrophia unguium 72086422 L60.3 Nails 1 through 10 were debrided with sharp mechanical debridemen t without incident. Nails were debrided and greater than 50% length and thickness where needed. Unable to cut own toenails 021367966 Z74.1 Quadripleg ia with quadriparesis 1857647063 9100 G82.50 [id number] Anup Jones MD [facility] Internal Med [place] [facility] [place] [address] [address] 02/13/2023 14:02:23 02/13/2023 14:32:11 Muscle weakness 15988958 M62.81 Anxiety 53025431 F41.9 Dyslipidemia 284230656 E 78.5 [id number] Anup Jones MD [facility] Internal Med [place] [address] [place] [address] [place] [address] 05/15/2023 13:49:56 05/15/2023 14:39:01 Anxiety 30201443 F41.9 [facility] [id number] E 78.5 [id number] Jon Feliciano MD Jennifer[facility] [place] [address] [place] [address] 05/30/2023 13:52:48 05/30/2023 14:11:55 Impacted cerumen in left ear 6154699171 [id number] H61.22 [id number] Jordi Quiles DPM [facility] [place] [address] [place] [address] 12/03/2023 17:20:40 12/04/2023 13:13:26 Blister of foot with infection 17372338 S90.822A incision and drainage of the heel 6x6cm- x 1 to dermisoffl oading at all timesRx heel protector- hard scriptdail y dressings Betadine wet-to-dry follow-up in 1 week in wound care Cellulitis of left foot [id number] 6961450 L03.116 cont abx therapy - cephalexin , finishwill continue monitor if worsens seek medical attention immediatel y [id number] [facility] [address] [place] [address] 12/12/2023 14:04:07 12/12/2023 15:29:29 Blister of foot with infection [id number] S90.822A healingoff loading at all timesRx heel protector- hard scriptdail y dressings Betadine wet-to-dry follow-up in 1 week in wound care Cellulitis of left foot [id number] L03.116 resolved [id number] [facility] [address] [place] [address] 12/19/2023 16:33:36 12/19/2023 18:50:23 Blister of foot with infection [id number] S90.822A healed Onychomyco sis of toenails [id number] B35.1 right 5th toenail Dystrophia unguium [id number] L60.3 Nails 1 through 10 were debrided with sharp mechanical debridemen t without incident. Nails were debrided and greater than 50% length and thickness where needed. Unable to cut own toenails [id number] Z74.1 Secondary to spinal cord injury- quadripleg ic with quadripare sis [id number] Jordi Quiles DPM [facility] [place] [address] [facility] [place] [address] 03/26/2024 15:51:33 03/27/2024 11:34:31 Dystrophia unguium [id number] L60.3 left great toenailtot al nail avulsion- verbal consentpro cedure performed without incidentWo und care instructio ns givenDress ing instructio ns givenfollo w-up 1 week Health Concerns Section Related Observation LastModified by Organization Detai ls LastModified Time None Recorded Concern Status LastModified by Organization Details LastModified Time None Recorded Advance Directives Directive N: Payers Encounter Date Sequence Insurance Name Policy Number Policy [place] Covered Member ID [place] Member ID Guarantor Name 05/30/2023 1 [facility] (MEDICARE REPLACEMENT/A DVANTAGE - HMO) [id number] David James [id number] David James 12/03/2023 1 [facility] (MEDICARE REPLACEMENT/A DVANTAGE - HMO) [id number] David James [id number] David James 12/12/2023 1 [facility] (MEDICARE REPLACEMENT/A DVANTAGE - HMO) [id number] David James [id number] David James 12/19/2023 1 [facility] (MEDICARE REPLACEMENT/A DVANTAGE - HMO) [id number] David James [id number] David James 03/26/2024 1 [facility] (MEDICARE REPLACEMENT/A DVANTAGE - HMO) [id number] David James [id number] David James Notes Date Note Type Note Provider Name and Address Organization Details Recorded Time 05/30/2023 text/html cerumen impaction Jon Feliciano MD [address] [facility], [facility] [address], [place], [address], [facility] [employer] 05/30/2023 14:21:34 12/03/2023 text/html . Patient is a 53-year-old male quadriplegic presents with a new wound to the left heel. Patient states he developed a large blister to the heel. Patient states that he has been wearing a protective heel sock but it is lacking in what he needs. Patient states the blisters been present for few days. Patient denies any fever, chills, nausea vomiting. Patient is on oral antibiotics which he finished Cipro and is currently on cephalexin. Jordi Quiles DPM [address], [place], [address], [employer] 12/04/2023 12:27:39 12/12/2023 text/html . Patient is a 53-year-old male who returns the office for a heel wound to the left heel secondary to blister and pressure. Patient is continuing to offload with supportive offloading multi Podus boot and is doing well he has no new wounds or signs of infection the wound is healing nicely. Patient denies any other complaints. Jordi Quiles DPM [address], [place], [address], [employer] 12/12/2023 14:25:36 12/19/2023 text/html . Patient is a 53-year-old male who returns for follow-up on a blister to the left heel. Patient states that he has had no new wounds or signs of infection. Patient states that he has no pain to the heel. Patient is concerned about discoloration of the 5th toenail with thickening. Patient denies any current treatment for this. Patient denies any other complaints. Patient states his nails are also long he is unable to cut them. Patient would like to have his nails cut. Jordi Quiles DPM [address], [place], [address], [employer] 12/19/2023 17:26:20 03/26/2024 text/html . 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 Patient has dystrophic toenail which he is concerned about the appearance I reviewed treatment options with the patient and recommended total nail avulsion to allow the nail to regrow. Patient understands all risks, benefits, complications of planned procedure and elects to continue. Jordi Quiles DPM [address] [address], [place], [address], [facility] 03/26/2024 16:47:28
[2024-10-28 19:53] LABS: Basophils Percent Auto 0.6 % (0.2-1.2); Eosinophils Absolute Auto 0.1 K/mm3 (0-0.3); Hematocrit 38.3 % (42.0-52.0); Immature Granulocyte Absolute 0.02 K/mm3 (0.00-0.031); Immature Granulocyte Percent A 0.3 % (0-0.5); Lymphocytes Absolute Auto 1.87 K/mm3 (0.9-3.2); Lymphocytes Percent Auto 28.8 % (18.3-44.2); Mean Corpuscular HGB Conc 33.9 g/dl (32-36); Mean Corpuscular Hemoglobin 32.3 pg (26-34); Mean Platelet Volume 10.5 fl (7.4-10.4); Monocytes Absolute Auto 0.7 K/mm3 (0.1-0.6); Neutrophils Absolute Auto 3.8 K/mm3 (1.3-6.7); Neutrophils Percent Auto 58.3 % (45.5-73.1); Platelet Count Result 223 k/mm3 (150-375); Red Blood Count 4.03 M/mm3 (4.6-6.20); Red Cell Distribution Width 12.3 % (11.5-14.5); White Blood Count 6.5 K/mm3 (4.5-10.0)
[2024-10-28 20:10] LABS: Alanine Aminotransferase 40 U/L (6-50); Albumin Level 4.3 g/dL (3.5-5.1); Alkaline Phosphatase 95 U/L (38-126); Anion Gap 10 mmol/L (4-12); Aspartate Amino Transferase 35 U/L (17-59); Bilirubin,Total 0.7 mg/dL (0.2-1.3); Blood Urea Nitrogen 12 mg/dL (9-20); Calcium 9.8 mg/dL (8.4-10.2); Carbon Dioxide 23 mmol/L (22-30); Chloride 103 mmol/L (98-107); Cholesterol 222 mg/dL (0-200); Estimated Glomerular Filt Rate > 60; Glucose 101 mg/dL (65-110); HDL Direct 43 mg/dL; Potassium 4.2 mmol/L (3.4-5.0); Sodium 136 mmol/L (137-145); Triglycerides 229 mg/dL (<150)
[2024-10-28 20:20] LABS: LDL Cholesterol Direct 126 mg/dL
== END 2024-10-28 15:09 | disposition home or self-care (01) ==
LOC: ANHGOSHLAB 15:10
PROVIDERS: PCP Internal Medicine; Visit Provider Internal Medicine
DX: E78.5 Hyperlipidemia, unspecified (principal)
CPT/HCPCS: 36415; 80053; 80061; 85025

== ENCOUNTER 2024-12-19 13:51 | Outpatient (CLI) | payer MEDICARE, MEDICAID, SELFPAY ==
--- NOTE | ~2024-12-19 | XR_ITS ---
EXAMINATION: XR lg joint inject/asp w image DATE: 12/19/2024 14:56 INDICATION: Adhesive capsulitis TECHNIQUE: A time-out was performed to verify the patient's name, date of , and procedure to b e performed. The procedure including the risks, benefits, and alternatives was discussed with the pat ient. Risks discussed included bleeding and infection. The patient understood the risks and agreed to proceed. The skin overlying the rotator cuff interval the right glenohumeral joint was prepped and draped in usual sterile fashion. Anesthetic was administered with 1% lidocaine subcutaneously. A 22 G needle was advanced under fluoroscopic guidance into the joint. Injection of 1 mL of Omnipaque 24 0 confirmed intra-articular position of the needle. Subsequently, injectate consisting of 5 mm a 4:1 mixture of 1% lidocaine: 80 mg/mL Depo-Medrol for a total dosage of 80 mg Depo-Medrol was instilled. Washout of contrast was seen confirming intra-articular administration. The needle was removed and t he entry site was cleaned and dressed. There were no immediate complications. Fluoroscopy exposure t sarah was 0.2 minutes. The total number of images was 2. Total DAP was 0.409 Gycm^2. FINDINGS: Real-time fluoroscopy demonstrates the needle in the right glenohumeral joint. IMPRESSION: 1. Successful right glenohumeral joint injection of local anesthetic and steroid. Reviewed, dictated and finalized at location A. IMPRESSION: 1. Successful right glenohumeral joint injection of local anesthetic and steroi d.
--- OUTSIDE RECORDS SUMMARY | 2024-12-19 13:55 | XMS_ITS | Referral Summary ---
Author Organization [facility] Address [address] [place] [address] Care Team Providers Care Panel Gluer Name Role Phone Pranav Jones MD Primary Care Provider [phone] Sandra Frazier OT Unavailable Unavailab Madhuri De Leon DPT Unavail able Encounters Date Type Department Care Team Description 12/02/2024 Telephone [facility] [address] 5th [place] [address] [place] [address] Damir Larkin NP 12/01/2024 Orders Only [facility] [address] [place] [address] Elpidio Castro RN 11/20/2024 2:15 PM CDT Office Visit [facility] [address] [phone] Rosa Vieira NP Constipation, unspecified constipation type (Primary Dx) 10/31/2024 4:48 PM CDT - 11/05/2024 2:15 PM CDT Hospital Encounter [place] [address] [address] [facility] [place] [address] Giovani Pearce DO Singh, Anjanya Devendra, MD Singh, Supriya, MD Gaspe Mudiyanselage, Nilupa Sewwandi, MD Urinary tract infection associated with cystostomy catheter, initial encounter (Primary Dx) Discharge Disposition: Discharge to home, home health skilled care 10/31/2024 Results Follow-Up [facility] [address] [phone] Carly Zhang NP Urine culture Urine, suprapubic catheter 10/30/[address] Medical Office Building [address] [place] [address] Piyush Andrade MD 10/28/2024 2:33 PM CDT - 10/28/2024 11:59 PM CDT Hospital Encounter [address] [address] Acute cystitis with hematuria Discharge Disposition: Discharge to home or self care 10/28/2024 2:15 PM CDT Office Visit [facility] [address] [phone] Rosa Vieira NP Acute cystitis with hematuria (Primary Dx); History of recurrent UTIs from Last 3 Months Allergies No known [...] for constipation 30 suppository 04/16/20 24 Active baclofen (LIORESAL) 5 mg tablet Take 1 tablet (5 mg total) by mouth 2 (two) times a day as needed 09/26/19 25 Active tiZANidine (ZANAFLEX) 4 mg tablet TAKE 1 TABLET BY MOUTH TWICE DAILY NEEDED FOR MYALGIA 09/05/19 25 Active Active Problems Problem Noted Date Diagnosed Date Urinary tract infection asso ciated with cystostomy catheter, initial encounter 10/31/2024 Complicated urinary tract infection 05/04/2024 Hypogonadism in [...] drink = 0.6 oz pur e alcohol) [facility] Utilities Answer Date Recorded In the past 12 months has th e electric, gas, oil, or water company threatened to shut off services in your home? No 11/03/2024 Social Connection and Isolat ion Panel [NHANES] Answer Date Recorded In a typical week, how many times do you talk on the phone with family, friends, or neighbors? More than three times a week 11/03/2024 How often do you get togethe r with friends or relatives? More than three times a week 11/03/2024 How often do you attend chur ch or temple services? Never 11/03/2024 Do you belong to any clubs o r organizations such as jain groups, unions, fraternal or athletic groups, or school groups? No 11/03/2024 How often do you attend meet ings of the clubs or organizations you belong to? Never 11/03/2024 Are you , , di vorced, , never , or living with a partner? Never 11/03/2024 AUDIT-C Answer Date Recorded Q1: How often [...] care, and heating? Not hard at all 11/03/2024 Hunger Vital Sign Answer Date Recorded Within the past 12 months, y ou worried that your food would run out before you got the money to buy more. Never true 11/04/19 25 Within the past 12 months, t he food you bought just didn't last and you didn't have money to get more. Never true 11/03/2024 PRAPARE - Transportation Answer Date Re corded In the past 12 months, has l ack of transportation kept you from medical appointments or from getting medications? No 01/2025 In the past 12 months, has l ack of transportation kept you from meetings, work, or from getting things needed for daily living? No 11/03/2024 Housing Stability Vital Sign Answer Jori e [...] place to sleep or slept in a detention (including now)? No 11/26/2023 Housing Stability Vital Sign Answer Jori e Recorded In the last 12 months, was t here a time when you were not able to pay the mortgage or rent on time? No 11/03/2024 In the past 12 months, how m any times have you moved where you were living? 0 11/03/2024 At any time in the past 12 m [facility], were you homeless or living in a detention (including now)? No 11/03/2024 Personal Safety Answer Date Recorded Have you ever been in or are you currently in a harmful physical or emotional relationship or is someone making you feel afraid or unsafe? 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 [employer] Gender Identity Not on file Sexual Orientation Not on file Last Filed Vital Signs Vital Sign Reading Time Taken Comments Blood Pressure 128/58 11/20/2024 2:14 PM CDT Pulse 71 11/20/2024 2:14 PM CDT Temperature 36.8 C (98.3 F) 11/20/2024 2:14 PM CDT Respiratory Rate 20 11/20/2024 2:14 PM CDT Oxygen Saturation 98% 11/20/2024 2:14 PM CDT Inhaled Oxygen Concentration - - Weight 97.5 kg (215 lb) 11/20/2024 2:14 PM CDT p t reported Height 175.3 cm (5' 9 ) 10/31/2024 7:25 PM CDT Body Mass Index 31.75 10/31/2024 7:25 PM CDT Plan of Treatment Not on file Procedures Procedure Name Priority Date/Time Associated Diagnosis Comments EGFR Timed 11/05/2024 5:22 AM CDT DIFFERENTIAL AUTO Timed 11/05/2024 5:2 2 AM CDT BASIC METABOLIC PANEL Timed 11/05/2024 5:22 AM CDT CBC WITH AUTO DIFFERENTIAL Timed 11/05/2024 5:22 AM CDT EGFR Routine 11/04/2024 8:31 AM CDT DIFFERENTIAL AUTO Routine 11/04/2024 8:3 1 AM CDT COMPREHENSIVE METABOLIC PANEL Routine 11/04/2024 8:31 AM CDT CBC WITH AUTO DIFFERENTIAL Routine 11/04/2024 8:31 AM CDT ERYTHROCYTE SEDIMENTATION RATE Routine 11/03/2024 5:58 AM CDT EGFR Routine 11/03/2024 5:58 AM CDT DIFFERENTIAL AUTO Routine 11/03/2024 5:5 8 AM CDT CBC WITH AUTO DIFFERENTIAL Routine 11/03/2024 5:58 AM CDT COMPREHENSIVE METABOLIC PANEL Routine 11/03/2024 5:58 AM CDT EGFR Routine 11/02/2024 7:15 AM CDT DIFFERENTIAL AUTO Routine 11/02/2024 7:1 5 AM CDT CBC WITH AUTO DIFFERENTIAL Routine 11/02/2024 7:15 AM CDT COMPREHENSIVE METABOLIC PANEL Routine 11/02/2024 7:15 AM CDT VANCOMYCIN LEVEL TROUGH Timed 2024 6:00 PM CDT EGFR Routine 2024 7:55 AM CDT DIFFERENTIAL AUTO Routine 2024 7:5 5 AM CDT CBC WITH AUTO DIFFERENTIAL Routine 2024 7:55 AM CDT COMPREHENSIVE METABOLIC PANEL Routine 2024 7:55 AM CDT SEPSIS LACTATE WITH REFLEX STAT 10/31/2024 5:09 PM CDT BLOOD CULTURE STAT 10/31/2024 5:09 PM CDT BLOOD CULTURE STAT 10/31/2024 5:09 PM CDT XR CHEST 1 VIEW ED 10/31/2024 4:16 PM CDT URINALYSIS, MICROSCOPIC ONLY STAT 10/31/2024 3:58 PM CDT URINE CULTURE STAT 10/31/2024 3:58 PM CDT URINALYSIS AND REFLEX TO MICROSCOPIC AND CULTURE STAT 10/31/2024 3:58 PM CDT EGFR STAT 10/31/2024 3:57 PM CDT DIFFERENTIAL AUTO STAT 10/31/2024 3:5 7 PM CDT COMPREHENSIVE METABOLIC PANEL STAT 10/31/2024 3:57 PM CDT CBC WITH AUTO DIFFERENTIAL STAT 10/31/2024 3:57 PM CDT POCT URINALYSIS DIPSTICK Routine 10/28/2024 2:34 PM CDT Acute cystitis with hematuria URINE CULTURE Routine 10/28/2024 2:33 PM CDT Acute cystitis with hematuria PSA SCREEN Routine 04/12/2023 3:24 AM CDT from Last 3 Months or Most Recently Relevant to Health Maintenance Results * eGFR (11/05/2024 5:22 AM CDT) eGFR >90 >=60 mL/min/1. 73 m2 Comment: Interpretive Data Reference Interval Normal >/= 90 mL/min/1.73m2 Mildly decreased* 60 - 89 mL/min/1.73m2 Mildly to moderately decreased 45 - 59 mL/min/1.73m2 Moderately to severely decreased 30 - 44 mL/min/1.73m2 Severely decreased 15 - 29 mL/min/1.73m2 Kidney Failure < 15 mL/min/1.73m2 *Relative to young adult level Estimated glomerular filtration rate is determined by the 2020 CKD-EPI equation recommended by the National Kidney Foundation (A Unifying Approach to GFR Estimation: Recommendations of the NKF-ASK Task Force on Reassessing the Inclusion of Race in Diagnosing Kidney Disease, JASN 2020). The CKD-EPI equation should not be used for patients with unstable renal function and has not been validated in children and those over 70. Current interpretive data was last reviewed 2021. Testing performed by: [address] [address] Blood 11/05/2024 5:22 AM CDT 11/05/2024 5:58 AM CDT us Keara Armas MD LAB BLOOD ORDERABLES Final Resu lt MELISA RIZZO [address] [facility] Department [place] [address] * (ABNORMAL) Differential, auto (11/05/2024 5:22 AM CDT) Pathologist [facility] Neutrophil abs 2.39 1.50 - 6.50 K/cumm Comment:Testing performed by : [address] [address] Imm gran abs 0.03 0.00 - 0.10 K/cumm MELISA RIZZO Comment:Testing performed by : [address] [address] Lymphocyte abs 2.06 0.80 - 3.30 K/cumm CERNER Comment:Testing performed by : [address], [place]., [address] Monocyte abs 0.87(H) 0.20 - 0.80 K/cumm CERNER Comment:Testing performed by : [address], [place]., [address] Eosinophil abs 0.26 0.00 - 0.50 K/cumm [facility] Comment:Testing performed by : [address], [place]., [address] Basophil abs 0.03 0.00 - 0.10 K/cumm [facility] Comment:Testing performed by : [address] [address] Neutrophil pct 42.5 % [facility] Comment: Interpretive Data Percent cell count reference ranges are not reported, since discordance with absolute values may lead to misinterpretation of CBC data. Current Interpretive Data was last revised on 2017. Testing performed by: [address] [address] Imm gran pct 0.5 % [facility] Comment: Interpretive Data Percent cell count reference ranges are not reported, since discordance with absolute values may lead to misinterpretation of CBC data. Current Interpretive Data was last revised on 2017. Testing performed by: [address] [address] Lymphocyte pct 36.5 % [facility] Comment: Interpretive Data Percent cell count reference ranges are not reported, since discordance with absolute values may lead to misinterpretation of CBC data. Current Interpretive Data was last revised on 2017. Testing performed by: [address] [address] Monocyte pct 15.4 % CERNER Comment: Interpretive Data Percent cell count reference ranges are not reported, since discordance with absolute values may lead to misinterpretation of CBC data. Current Interpretive Data was last revised on 2017. Testing performed by: [address] [address] Eosinophil pct 4.6 % CERNER Comment: Interpretive Data Percent cell count reference ranges are not reported, since discordance with absolute values may lead to misinterpretation of CBC data. Current Interpretive Data was last revised on 2017. Testing performed by: [address] [address] Basophil pct 0.5 % MELISA RIZZO Comment: Interpretive Data Percent cell count reference ranges are not reported, since discordance with absolute values may lead to misinterpretation of CBC data. Current Interpretive Data was last revised on 2017. Testing performed by: [address] [address] Blood 11/05/2024 5:22 AM CDT 11/05/2024 5:58 AM CDT us Keara Armas MD LAB BLOOD ORDERABLES Final Resu lt MELISA [facility] Department [place] [address] * (ABNORMAL) CBC with auto differential (11/05/2024 5:22 AM CDT) WBC 5.64 3.80 - 9.90 K/cumm Comment:Testing performed by : [address] [address] Hgb 12.9(L) 13.0 - 17.5 g/dL MELISA RIZZO Comment:Testing performed by : [address] [address] Hct 37.5(L) 38.9 - 50.3 % MELISA RIZZO Comment:Testing performed by : [address] [address] Plt 196 150 - 400 K/cumm MELISA RIZZO Comment:Testing performed by : [address] [address] MPV 10.0 9.1 - 12.3 fL MELISA RIZZO Comment:Testing performed by : [address] [address] RBC 3.97(L) 4.30 - 5.80 M/cumm MELISA RIZZO Comment:Testing performed by : [address] [address] MCV 94.5 81.3 - 96.4 fL MELISA RIZZO Comment:Testing performed by : [address] [address] MCH 32.5 27.1 - 33.3 pg MELISA RIZZO Comment:Testing performed by : [address] [address] MCHC 34.4 32.3 - 35.7 g/dL MELISA RIZZO Comment:Testing performed by : [address] [address] RDW CV 12.4 11.1 - 14.9 % MELISA RIZZO Comment:Testing performed by : [address] [address] RDW SD 43.2 35.7 - 48.1 fL MELISA RIZZO Comment:Testing performed by : [address] [address] NRBC abs 0.00 0.00 - 0.01 K/cumm MELISA RIZZO Comment:Testing performed by : [address] [address] Blood 11/05/2024 5:22 AM CDT 11/05/2024 5:58 AM CDT us Keara Armas MD LAB BLOOD ORDERABLES Final Resu lt MELISA [address] [facility] Department of Laboratories [place], [place] [id number] * (ABNORMAL) Basic metabolic panel (11/05/2024 5:22 AM CDT) Sodium 140 135 - 145 mmol/L Comment:Testing performed by : [address] [address] Potassium, pl 3.9 3.3 - 4.9 mmol/L MELISA RIZZO Comment:Testing performed by : [address] [address] Chloride 104 97 - 110 mmol/L MELISA RIZZO Comment:Testing performed by : [address] [address] CO2 24 22 - 32 mmol/L MELISA Comment:Testing performed by : [address] [address] Anion gap 12 2 - 15 mmol/L MELISA Comment:Testing performed by : [address] [address] BUN 11 6 - 25 mg/dL MELISA Comment:Testing performed by : [address] [address] Creatinine 0.30(L) 0.80 - 1.30 mg/dL MELISA Comment:Testing performed by : [address] [address] Glucose 119 70 - 199 mg/dL MELISA Comment: Interpretive Data Fasting glucose >/= 126 mg/dl is diagnostic for diabetes. Fasting is defined as no caloric intake for at least 8 hours. Fasting glucose between 100 mg/dl to 125 mg/dl is diagnostic of prediabetes. In a patient with classic symptoms of hyperglycemia or hyperglycemic crisis, a random glucose >/= 200 mg/dl is diagnostic for diabetes. In the absence of unequivocal hyperglycemia, results should be confirmed by repeat testing. The classification and Diagnosis of Diabetes Diabetes Care 202; 46: S19-S40. Current interpretive data was last revised 2022. Testing performed by: [address] [address] Calcium 9.6 8.5 - 10.3 mg/dL MELISA Comment:Testing performed by : [address] [address] Blood 11/05/2024 5:22 AM CDT 11/05/2024 5:58 AM CDT us Keara Armas MD LAB BLOOD ORDERABLES Final Resu lt MELISA RIZZO [address] [facility] Department of Laboratories [place], [place] [id number] * eGFR (11/04/2024 8:31 AM CDT) [facility] eGFR >90 >=60 mL/min/1. 73 m2 Comment: Interpretive Data Reference Interval Normal >/= 90 mL/min/1.73m2 Mildly decreased* 60 - 89 mL/min/1.73m2 Mildly to moderately decreased 45 - 59 mL/min/1.73m2 Moderately to severely decreased 30 - 44 mL/min/1.73m2 Severely decreased 15 - 29 mL/min/1.73m2 Kidney Failure < 15 mL/min/1.73m2 *Relative to young adult level Estimated glomerular filtration rate is determined by the 2020 CKD-EPI equation recommended by the National Kidney Foundation (A Unifying Approach to GFR Estimation: Recommendations of the NKF-ASK Task Force on Reassessing the Inclusion of Race in Diagnosing Kidney Disease, JASN 2020). The CKD-EPI equation should not be used for patients with unstable renal function and has not been validated in children and those over 70. Current interpretive data was last reviewed 2021. Testing performed by: [address] [address] Blood 11/04/2024 8:31 AM CDT 11/04/2024 9:01 AM CDT us Rasheed Kumari MD LAB BLOOD ORDERABLES Final R esult MELISA [address] [facility] Department of Laboratories [place], [place] [id number] * Differential, auto (11/04/2024 8:31 AM CDT) Pathologist [facility] Neutrophil abs 2.83 1.50 - 6.50 K/cumm Comment:Testing performed by : [address] [address] Imm gran abs 0.02 0.00 - 0.10 K/cumm MELISA RIZZO Comment:Testing performed by : [address] [address] Lymphocyte abs 1.37 0.80 - 3.30 K/cumm MELISA Comment:Testing performed by : [address] [address] Monocyte abs 0.73 0.20 - 0.80 K/cumm [facility] Comment:Testing performed by : [address] [address] Eosinophil abs 0.31 0.00 - 0.50 K/cumm [facility] Comment:Testing performed by : [address] [address] Basophil abs 0.03 0.00 - 0.10 K/cumm [facility] Comment:Testing performed by : [address] [address] Neutrophil pct 53.4 % [facility] Comment: Interpretive Data Percent cell count reference ranges are not reported, since discordance with absolute values may lead to misinterpretation of CBC data. Current Interpretive Data was last revised on 2017. Testing performed by: [address] [address] Imm gran pct 0.4 % [facility] Comment: Interpretive Data Percent cell count reference ranges are not reported, since discordance with absolute values may lead to misinterpretation of CBC data. Current Interpretive Data was last revised on 2017. Testing performed by: [address] [address] Lymphocyte pct 25.9 % [facility] Comment: Interpretive Data Percent cell count reference ranges are not reported, since discordance with absolute values may lead to misinterpretation of CBC data. Current Interpretive Data was last revised on 2017. Testing performed by: [address] [address] Monocyte pct 13.8 % [facility] Comment: Interpretive Data Percent cell count reference ranges are not reported, since discordance with absolute values may lead to misinterpretation of CBC data. Current Interpretive Data was last revised on 2017. Testing performed by: [address] [address] Eosinophil pct 5.9 % [facility] Comment: Interpretive Data Percent cell count reference ranges are not reported, since discordance with absolute values may lead to misinterpretation of CBC data. Current Interpretive Data was last revised on 2017. Testing performed by: [address] [address] Basophil pct 0.6 % MELISA Comment: Interpretive Data Percent cell count reference ranges are not reported, since discordance with absolute values may lead to misinterpretation of CBC data. Current Interpretive Data was last revised on 2017. Testing performed by: [address] [address] Blood 11/04/2024 8:31 AM CDT 11/04/2024 9:01 AM CDT us Rasheed Kumari MD LAB BLOOD ORDERABLES Final R esult MELISA [address] [facility] Department [place] [address] * (ABNORMAL) CBC with auto differential (11/04/2024 8:31 AM CDT) WBC 5.29 3.80 - 9.90 K/cumm Comment:Testing performed by : [address] [address] Hgb 12.6(L) 13.0 - 17.5 g/dL MELISA Comment:Testing performed by : [address] [address] Hct 37.1(L) 38.9 - 50.3 % MELISA Comment:Testing performed by : [address] [address] Plt 176 150 - 400 K/cumm MELISA Comment:Testing performed by : [address] [address] MPV 10.1 9.1 - 12.3 fL MELISA Comment:Testing performed by : [address] [address] RBC 3.93(L) 4.30 - 5.80 M/cumm MELISA Comment:Testing performed by : [address] [address] MCV 94.4 81.3 - 96.4 fL MELISA Comment:Testing performed by : [address] [place] [address] MCH 32.1 27.1 - 33.3 pg MELISA RIZZO Comment:Testing performed by : [address] [address] MCHC 34.0 32.3 - 35.7 g/dL MELISA RIZZO Comment:Testing performed by : [address] [address] RDW CV 12.4 11.1 - 14.9 % MELISA RIZZO Comment:Testing performed by : [address] [address] RDW SD 43.2 35.7 - 48.1 fL MELISA RIZZO Comment:Testing performed by : [address] [address] NRBC abs 0.00 0.00 - 0.01 K/cumm MELISA RIZZO Comment:Testing performed by : [address] [address] Blood 11/04/2024 8:31 AM CDT 11/04/2024 9:01 AM CDT us Rasheed Kumari MD LAB BLOOD ORDERABLES Final R esult MELISA [address] [facility] Department of Laboratories [place], [place] [id number] * (ABNORMAL) Comprehensive metabolic panel (11/04/2024 8:31 AM CDT) Sodium 140 135 - 145 mmol/L Comment:Testing performed by : [address] [address] Potassium, pl 3.8 3.3 - 4.9 mmol/L MELISA RIZZO Comment:Testing performed by : [address] [address] Chloride 104 97 - 110 mmol/L MELISA RIZZO Comment:Testing performed by : [address] [address] CO2 25 22 - 32 mmol/L MELISA RIZZO Comment:Testing performed by : [address] [address] Anion gap 11 2 - 15 mmol/L MELISA Comment:Testing performed by : [address] [address] BUN 14 6 - 25 mg/dL MELISA Comment:Testing performed by : [address] [address] Creatinine 0.30(L) 0.80 - 1.30 mg/dL MELISA Comment:Testing performed by : [address] [address] Glucose 123 70 - 199 mg/dL [facility] Comment: Interpretive Data Fasting glucose >/= 126 mg/dl is diagnostic for diabetes. Fasting is defined as no caloric intake for at least 8 hours. Fasting glucose between 100 mg/dl to 125 mg/dl is diagnostic of prediabetes. In a patient with classic symptoms of hyperglycemia or hyperglycemic crisis, a random glucose >/= 200 mg/dl is diagnostic for diabetes. In the absence of unequivocal hyperglycemia, results should be confirmed by repeat testing. The classification and Diagnosis of Diabetes Diabetes Care 2021; 46: S19-S40. Current interpretive data was last revised 2022. Testing performed by: [address] [address] Calcium 9.2 8.5 - 10.3 mg/dL MELISA Comment:Testing performed by : [address] [address] Bilirubin, total 1.2 0.1 - 1.2 mg/dL MELISA Comment:Testing performed by : [address] [address] Protein, pl 7.0 6.5 - 8.5 g/dL MELISA Comment:Testing performed by : [address] [address] Albumin 3.9 3.5 - 5.0 g/dL MELISA Comment:Testing performed by : [address] [address] Alk phos 82 40 - 130 Units/L MELISA Comment:Testing performed by : [address] [address] ALT 148(H) 7 - 55 Units/L MELISA Comment:Testing performed by : [facility], [address] [place] [address]., [address] AST 90(H) 10 - 50 Units/L MELISA Comment:Testing performed by : [facility], [address] [place] [address]., [address] Blood 11/04/2024 8:31 AM CDT 11/04/2024 9:01 AM CDT us Rasheed Kumari MD LAB BLOOD ORDERABLES Final R esult MELISA [address] [facility] Department [place] [address] * eGFR (11/03/2024 5:58 AM CDT) eGFR >90 >=60 mL/min/1. 73 m2 Comment: Interpretive Data Reference Interval Normal >/= 90 mL/min/1.73m2 Mildly decreased* 60 - 89 mL/min/1.73m2 Mildly to moderately decreased 45 - 59 mL/min/1.73m2 Moderately to severely decreased 30 - 44 mL/min/1.73m2 Severely decreased 15 - 29 mL/min/1.73m2 Kidney Failure < 15 mL/min/1.73m2 *Relative to young adult level Estimated glomerular filtration rate is determined by the 2020 CKD-EPI equation recommended by the National Kidney Foundation (A Unifying Approach to GFR Estimation: Recommendations of the NKF-ASK Task Force on Reassessing the Inclusion of Race in Diagnosing Kidney Disease, JASN 2020). The CKD-EPI equation should not be used for patients with unstable renal function and has not been validated in children and those over 70. Current interpretive data was last reviewed 2021. Testing performed by: [address] [address] Blood 11/03/2024 5:58 AM CDT 11/03/2024 6:15 AM CDT us Dorie Armas MD LAB BLOOD ORDERABLES F inal Result MELISA [address] [facility] Department [place] [address] * (ABNORMAL) Differential, auto (11/03/2024 5:58 AM CDT) Neutrophil abs 3.74 1.50 - 6.50 K/cumm Comment:Testing performed by : [address] [address] Imm gran abs 0.03 0.00 - 0.10 K/cumm MELISA Comment:Testing performed by : [address] [address] Lymphocyte abs 1.43 0.80 - 3.30 K/cumm MELISA Comment:Testing performed by : [address] [address] Monocyte abs 0.82(H) 0.20 - 0.80 K/cumm MELISA Comment:Testing performed by : [address] [address] Eosinophil abs 0.17 0.00 - 0.50 K/cumm MELISA Comment:Testing performed by : [address] [address] Basophil abs 0.04 0.00 - 0.10 K/cumm MELISA Comment:Testing performed by : [address] [address] Neutrophil pct 60.0 % MELISA Comment: Interpretive Data Percent cell count reference ranges are not reported, since discordance with absolute values may lead to misinterpretation of CBC data. Current Interpretive Data was last revised on 2017. Testing performed by: [address] [address] Imm gran pct 0.5 % MELISA Comment: Interpretive Data Percent cell count reference ranges are not reported, since discordance with absolute values may lead to misinterpretation of CBC data. Current Interpretive Data was last revised on 2017. Testing performed by: [address] [address] Lymphocyte pct 23.0 % MELISA Comment: Interpretive Data Percent cell count reference ranges are not reported, since discordance with absolute values may lead to misinterpretation of CBC data. Current Interpretive Data was last revised on 2017. Testing performed by: [address] [address] Monocyte pct 13.2 % MELISA Comment: Interpretive Data Percent cell count reference ranges are not reported, since discordance with absolute values may lead to misinterpretation of CBC data. Current Interpretive Data was last revised on 2017. Testing performed by: [address] [address] Eosinophil pct 2.7 % MELISA Comment: Interpretive Data Percent cell count reference ranges are not reported, since discordance with absolute values may lead to misinterpretation of CBC data. Current Interpretive Data was last revised on 2017. Testing performed by: [address] [address] Basophil pct 0.6 % MELISA Comment: Interpretive Data Percent cell count reference ranges are not reported, since discordance with absolute values may lead to misinterpretation of CBC data. Current Interpretive Data was last revised on 2017. Testing performed by: [address] [address] Blood 11/03/2024 5:58 AM CDT 11/03/2024 6:15 AM CDT us Dorie Armas MD LAB BLOOD ORDERABLES F inal Result MELISA 2658 [facility] Department [place] [address] * (ABNORMAL) CBC with auto differential (11/03/2024 5:58 AM CDT) WBC 6.23 3.80 - 9.90 K/cumm Comment:Testing performed by : [address] [address] Hgb 12.2(L) 13.0 - 17.5 g/dL MELISA Comment:Testing performed by : [address] [address] Hct 36.3(L) 38.9 - 50.3 % MELISA Comment:Testing performed by : [address], [address] Plt 180 150 - 400 K/cumm MELISA Comment:Testing performed by : [address] [address] MPV 10.0 9.1 - 12.3 fL MELISA Comment:Testing performed by : [address], [address] RBC 3.79(L) 4.30 - 5.80 M/cumm MELISA Comment:Testing performed by : [address], [address] MCV 95.8 81.3 - 96.4 fL MELISA Comment:Testing performed by : [address], [address] MCH 32.2 27.1 - 33.3 pg MELISA Comment:Testing performed by : [address], [address] MCHC 33.6 32.3 - 35.7 g/dL MELISA Comment:Testing performed by : [address], [address] RDW CV 12.6 11.1 - 14.9 % MELISA Comment:Testing performed by : [address], [address] RDW SD 43.8 35.7 - 48.1 fL MELISA Comment:Testing performed by : [address], [address] NRBC abs 0.00 0.00 - 0.01 K/cumm MELISA Comment:Testing performed by : [address], [address] Blood 11/03/2024 5:58 AM CDT 11/03/2024 6:15 AM CDT us Dorie Armas MD LAB BLOOD ORDERABLES F inal Result MELISA 4500 [facility] Department [place] [address] * Erythrocyte sedimentation rate (11/03/2024 5:58 AM CDT) Pathologist [facility] Erythrocyte sedimentation rate 17 1 - 20 mm/hr Comment:Testing performed by : [address] [address] Blood 11/03/2024 5:5 8 AM CDT 11/03/2024 6:15 AM CDT us Keara Armas MD LAB BLOOD ORDERABLES Final Resu lt Performing Organization Address City/[facility] Co de Phone Number MELISA [address] Department [place] [address] * (ABNORMAL) Comprehensive metabolic panel (11/03/2024 5:58 AM CDT) [facility] Sodium 136 135 - 145 mmol/L Comment:Testing performed by : [address] [address] Potassium, pl 3.6 3.3 - 4.9 mmol/L MELISA Comment:Testing performed by : [address] [address] Chloride 101 97 - 110 mmol/L MELISA Comment:Testing performed by : [address] [address] CO2 26 22 - 32 mmol/L MELISA Comment:Testing performed by : [address] [address] Anion gap 9 2 - 15 mmol/L MELISA Comment:Testing performed by : [address] [address] BUN 15 6 - 25 mg/dL MELISA Comment:Testing performed by : [address] [address] Creatinine 0.30(L) 0.80 - 1.30 mg/dL MELISA Comment:Testing performed by : [address] [address] Glucose 118 70 - 199 mg/dL MELISA Comment: Interpretive Data Fasting glucose >/= 126 mg/dl is diagnostic for diabetes. Fasting is defined as no caloric intake for at least 8 hours. Fasting glucose between 100 mg/dl to 125 mg/dl is diagnostic of prediabetes. In a patient with classic symptoms of hyperglycemia or hyperglycemic crisis, a random glucose >/= 200 mg/dl is diagnostic for diabetes. In the absence of unequivocal hyperglycemia, results should be confirmed by repeat testing. The classification and Diagnosis of Diabetes Diabetes Care 202; 46: S19-S40. Current interpretive data was last revised 2022. Testing performed by: [address] [address] Calcium 9.3 8.5 - 10.3 mg/dL MELISA Comment:Testing performed by : [address] [address] Bilirubin, total 0.7 0.1 - 1.2 mg/dL MELISA Comment:Testing performed by : [address] [address] Protein, pl 6.8 6.5 - 8.5 g/dL MELISA Comment:Testing performed by : [address] [address] Albumin 3.9 3.5 - 5.0 g/dL MELISA Comment:Testing performed by : [address] [address] Alk phos 79 40 - 130 Units/L MELISA Comment:Testing performed by : [address] [address] ALT 34 7 - 55 Units/L MELISA Comment:Testing performed by : [address] [address] AST 19 10 - 50 Units/L [facility] Comment:Testing performed by : [address] [address] Blood 11/03/2024 5:58 AM CDT 11/03/2024 6:15 AM CDT us Dorie Armas MD LAB BLOOD ORDERABLES F inal Result Performing Organization Address [facility] de Phone Number [place] [id number] [facility] [place] [address] * eGFR (11/02/2024 7:15 AM CDT) eGFR >90 >=60 mL/min/1. 73 m2 Comment: Interpretive Data Reference Interval Normal >/= 90 mL/min/1.73m2 Mildly decreased* 60 - 89 mL/min/1.73m2 Mildly to moderately decreased 45 - 59 mL/min/1.73m2 Moderately to severely decreased 30 - 44 mL/min/1.73m2 Severely decreased 15 - 29 mL/min/1.73m2 Kidney Failure < 15 mL/min/1.73m2 *Relative to young adult level Estimated glomerular filtration rate is determined by the 2020 CKD-EPI equation recommended by the National Kidney [employer] (A Unifying Approach to GFR Estimation: Recommendations of the NKF-ASK Task Force on Reassessing the Inclusion of Race in Diagnosing Kidney Disease, JASN 2020). The CKD-EPI equation should not be used for patients with unstable renal function and has not been validated in children and those over 70. Current interpretive data was last reviewed 2021. Testing performed by: [address] [address] Blood 11/02/2024 7:15 AM CDT 11/02/2024 7:39 AM CDT us Dorie Armas MD LAB BLOOD ORDERABLES F inal Result Performing Organization Address [facility] de Phone Number MELISA [address] [facility] Department [place] [address] * Differential, auto (11/02/2024 7:15 AM CDT) Neutrophil abs 2.86 1.50 - 6.50 K/cumm Comment:Testing performed by : [address] [address] Imm gran abs 0.03 0.00 - 0.10 K/cumm MELISA Comment:Testing performed by : [address] [address] Lymphocyte abs 1.06 0.80 - 3.30 K/cumm [facility] Comment:Testing performed by : [address] [address] Monocyte abs 0.71 0.20 - 0.80 K/cumm [facility] Comment:Testing performed by : [address], [place]., [address] Eosinophil abs 0.12 0.00 - 0.50 K/cumm [facility] Comment:Testing performed by : [address], [place]., [address] Basophil abs 0.04 0.00 - 0.10 K/cumm [facility] Comment:Testing performed by : [address] [address] Neutrophil pct 59.4 % [facility] Comment: Interpretive Data Percent cell count reference ranges are not reported, since discordance with absolute values may lead to misinterpretation of CBC data. Current Interpretive Data was last revised on 2017. Testing performed by: [address] [address] Imm gran pct 0.6 % [facility] Comment: Interpretive Data Percent cell count reference ranges are not reported, since discordance with absolute values may lead to misinterpretation of CBC data. Current Interpretive Data was last revised on 2017. Testing performed by: [address] [address] Lymphocyte pct 22.0 % [facility] Comment: Interpretive Data Percent cell count reference ranges are not reported, since discordance with absolute values may lead to misinterpretation of CBC data. Current Interpretive Data was last revised on 2017. Testing performed by: [address] [address] Monocyte pct 14.7 % [facility] Comment: Interpretive Data Percent cell count reference ranges are not reported, since discordance with absolute values may lead to misinterpretation of CBC data. Current Interpretive Data was last revised on 2017. Testing performed by: [address] [address] Eosinophil pct 2.5 % [facility] Comment: Interpretive Data Percent cell count reference ranges are not reported, since discordance with absolute values may lead to misinterpretation of CBC data. Current Interpretive Data was last revised on 2017. Testing performed by: [address] [address] Basophil pct 0.8 % MELISA Comment: Interpretive Data Percent cell count reference ranges are not reported, since discordance with absolute values may lead to misinterpretation of CBC data. Current Interpretive Data was last revised on 2017. Testing performed by: [address] [address] Blood 11/02/2024 7:15 AM CDT 11/02/2024 7:39 AM CDT us Dorie Armas MD LAB BLOOD ORDERABLES F inal Result MELISA [facility] Department [place] [address] * (ABNORMAL) CBC with auto differential (11/02/2024 7:15 AM CDT) WBC 4.82 3.80 - 9.90 K/cumm Comment:Testing performed by : [address] [address] Hgb 12.2(L) 13.0 - 17.5 g/dL MELISA Comment:Testing performed by : [address] [address] Hct 36.3(L) 38.9 - 50.3 % MELISA Comment:Testing performed by : [address] [address] Plt 175 150 - 400 K/cumm MELISA Comment:Testing performed by : [address] [address] MPV 9.9 9.1 - 12.3 fL MELISA Comment:Testing performed by : [address] [address] RBC 3.78(L) 4.30 - 5.80 M/cumm MELISA RIZZO Comment:Testing performed by : [address] [address] MCV 96.0 81.3 - 96.4 fL MELISA RIZZO Comment:Testing performed by : [address] [address] MCH 32.3 27.1 - 33.3 pg MELISA RIZZO Comment:Testing performed by : [address] [address] MCHC 33.6 32.3 - 35.7 g/dL MELISA RIZZO Comment:Testing performed by : [address], [address] RDW CV 12.6 11.1 - 14.9 % MELISA RIZZO Comment:Testing performed by : [address] [address] RDW SD 43.8 35.7 - 48.1 fL MELISA RIZZO Comment:Testing performed by : [address] [address] NRBC abs 0.00 0.00 - 0.01 K/cumm MELISA Comment:Testing performed by : [address] [address] Blood 11/02/2024 7:15 AM CDT 11/02/2024 7:39 AM CDT us Dorie Armas MD LAB BLOOD ORDERABLES F inal Result MELISA 2325 [facility] Department of Laboratories [place], [place] [id number] * (ABNORMAL) Comprehensive metabolic panel (11/02/2024 7:15 AM CDT) Sodium 141 135 - 145 mmol/L Comment:Testing performed by : [address] [address] Potassium, pl 3.9 3.3 - 4.9 mmol/L MELISA Comment:Testing performed by : [address], [address] Chloride 107 97 - 110 mmol/L MELISA Comment:Testing performed by : [address] [address] CO2 23 22 - 32 mmol/L MELISA Comment:Testing performed by : [address] [address] Anion gap 11 2 - 15 mmol/L MELISA Comment:Testing performed by : [address] [address] BUN 13 6 - 25 mg/dL MELISA Comment:Testing performed by : [address], [place]., [address] Creatinine 0.30(L) 0.80 - 1.30 mg/dL MELISA Comment:Testing performed by : [address] [address] Glucose 125 70 - 199 mg/dL MELISA Comment: Interpretive Data Fasting glucose >/= 126 mg/dl is diagnostic for diabetes. Fasting is defined as no caloric intake for at least 8 hours. Fasting glucose between 100 mg/dl to 125 mg/dl is diagnostic of prediabetes. In a patient with classic symptoms of hyperglycemia or hyperglycemic crisis, a random glucose >/= 200 mg/dl is diagnostic for diabetes. In the absence of unequivocal hyperglycemia, results should be confirmed by repeat testing. The classification and Diagnosis of Diabetes Diabetes Care 202; 46: S19-S40. Current interpretive data was last revised 2022. Testing performed by: [address] [address] Calcium 9.1 8.5 - 10.3 mg/dL MELISA Comment:Testing performed by : [address] [address] Bilirubin, total 0.8 0.1 - 1.2 mg/dL MELISA Comment:Testing performed by : [address] [address] Protein, pl 6.6 6.5 - 8.5 g/dL MELISA Comment:Testing performed by : [address] [address] Albumin 3.7 3.5 - 5.0 g/dL MELISA Comment:Testing performed by : [address], [address] Alk phos 76 40 - 130 Units/L MELISA RIZZO Comment:Testing performed by : [address] [address] ALT 33 7 - 55 Units/L MELISA RIZZO Comment:Testing performed by : [address], [address] AST 17 10 - 50 Units/L MELISA Comment:Testing performed by : [address], [address] Blood 11/02/2024 7:15 AM CDT 11/02/2024 7:39 AM CDT Dorie Armas MD LAB BLOOD ORDERABLES F inal Result Performing Organization Address [facility] de Phone Number [address] [employer] [place] [address] * Vancomycin level trough (2024 6:00 PM CDT) [facility] Vancomycin trough 13.8 10.0 - 20.0 mcg/mL Comment:Testing performed by : [address], [address] Blood 2024 6:00 PM CDT 2024 6:10 PM CDT us Dorie Armas MD LAB BLOOD ORDERABLES F inal Result Performing Organization Address [facility] de Phone Number [address] [address] * eGFR (2024 7:55 AM CDT) [facility] eGFR >90 >=60 mL/min/1. 73 m2 Comment: Interpretive Data Reference Interval Normal >/= 90 mL/min/1.73m2 Mildly decreased* 60 - 89 mL/min/1.73m2 Mildly to moderately decreased 45 - 59 mL/min/1.73m2 Moderately to severely decreased 30 - 44 mL/min/1.73m2 Severely decreased 15 - 29 mL/min/1.73m2 Kidney Failure < 15 mL/min/1.73m2 *Relative to young adult level Estimated glomerular filtration rate is determined by the 2020 CKD-EPI equation recommended by the National Kidney Foundation (A Unifying Approach to GFR Estimation: Recommendations of the NKF-ASK Task Force on Reassessing the Inclusion of Race in Diagnosing Kidney Disease, JASN 2020). The CKD-EPI equation should not be used for patients with unstable renal function and has not been validated in children and those over 70. Current interpretive data was last reviewed 2021. Testing performed by: [address] [address] Blood 2024 7:55 AM CDT 2024 8:04 AM CDT us Dorie Armas MD LAB BLOOD ORDERABLES F inal Result [place] [id number] [facility] Department [place] [address] * Differential, auto (2024 7:55 AM CDT) Neutrophil abs 3.89 1.50 - 6.50 K/cumm Comment:Testing performed by : [address] [address] Imm gran abs 0.03 0.00 - 0.10 K/cumm MELISA Comment:Testing performed by : [address] [address] Lymphocyte abs 1.07 0.80 - 3.30 K/cumm MELISA Comment:Testing performed by : [address] [address] Monocyte abs 0.62 0.20 - 0.80 K/cumm MELISA Comment:Testing performed by : [address] [address] Eosinophil abs 0.14 0.00 - 0.50 K/cumm MELISA Comment:Testing performed by : [address] [address] Basophil abs 0.03 0.00 - 0.10 K/cumm MELISA Comment:Testing performed by : [address] [address] Neutrophil pct 67.4 % [facility] Comment: Interpretive Data Percent cell count reference ranges are not reported, since discordance with absolute values may lead to misinterpretation of CBC data. Current Interpretive Data was last revised on 2017. Testing performed by: [address] [address] Imm gran pct 0.5 % [facility] Comment: Interpretive Data Percent cell count reference ranges are not reported, since discordance with absolute values may lead to misinterpretation of CBC data. Current Interpretive Data was last revised on 2017. Testing performed by: [address] [address] Lymphocyte pct 18.5 % [facility] Comment: Interpretive Data Percent cell count reference ranges are not reported, since discordance with absolute values may lead to misinterpretation of CBC data. Current Interpretive Data was last revised on 2017. Testing performed by: [address] [address] Monocyte pct 10.7 % [facility] Comment: Interpretive Data Percent cell count reference ranges are not reported, since discordance with absolute values may lead to misinterpretation of CBC data. Current Interpretive Data was last revised on 2017. Testing performed by: [address] [address] Eosinophil pct 2.4 % [facility] Comment: Interpretive Data Percent cell count reference ranges are not reported, since discordance with absolute values may lead to misinterpretation of CBC data. Current Interpretive Data was last revised on 2017. Testing performed by: [address] [address] Basophil pct 0.5 % [facility] Comment: Interpretive Data Percent cell count reference ranges are not reported, since discordance with absolute values may lead to misinterpretation of CBC data. Current Interpretive Data was last revised on 2017. Testing performed by: [address] [place]., [address] Blood 2024 7:55 AM CDT 2024 8:04 AM CDT us Dorie Armas MD LAB BLOOD ORDERABLES F inal Result [facility] [address] [facility] Department [place] [address] * (ABNORMAL) CBC with auto differential (2024 7:55 AM CDT) WBC 5.78 3.80 - 9.90 K/cumm Comment:Testing performed by : [address] [address] Hgb 12.3(L) 13.0 - 17.5 g/dL MELISA Comment:Testing performed by : [address], [address] Hct 36.6(L) 38.9 - 50.3 % MELISA Comment:Testing performed by : [address] [address] Plt 173 150 - 400 K/cumm MELISA Comment:Testing performed by : [address] [address] MPV 10.0 9.1 - 12.3 fL MELISA Comment:Testing performed by : [address] [address] RBC 3.80(L) 4.30 - 5.80 M/cumm MELISA Comment:Testing performed by : [address] [address] MCV 96.3 81.3 - 96.4 fL MELISA Comment:Testing performed by : [address] [address] MCH 32.4 27.1 - 33.3 pg MELISA RIZZO Comment:Testing performed by : [address] [address] MCHC 33.6 32.3 - 35.7 g/dL MELISA RIZZO Comment:Testing performed by : [address] [address] RDW CV 12.5 11.1 - 14.9 % MELISA RIZZO Comment:Testing performed by : [address] [address] RDW SD 43.9 35.7 - 48.1 fL MELISA RIZZO Comment:Testing performed by : [address] [address] NRBC abs 0.00 0.00 - 0.01 K/cumm MELISA RIZZO Comment:Testing performed by : [address] [address] Blood 2024 7:55 AM CDT 2024 8:04 AM CDT us Dorie Armas MD LAB BLOOD ORDERABLES F inal Result MELISA RIZZO [facility] Department [place] [address] * (ABNORMAL) Comprehensive metabolic panel (2024 7:55 AM CDT) Pathologist [facility] Sodium 137 135 - 145 mmol/L Comment:Testing performed by : [address] [address] Potassium, pl 4.1 3.3 - 4.9 mmol/L MELISA RIZZO Comment: Hemolyzed; Potassium value may be falsely elevated by as much as 1.0 mmol/L. Suggest redraw and reanalysis. Testing performed by: [address] [address] Chloride 107 97 - 110 mmol/L MELISA RIZZO Comment:Testing performed by : [address] [address] CO2 21(L) 22 - 32 mmol/L MELISA RIZZO Comment:Testing performed by : [address] [address] Anion gap 9 2 - 15 mmol/L MELISA RIZZO Comment:Testing performed by : [address] [address] BUN 11 6 - 25 mg/dL MELISA Comment:Testing performed by : [address] [address] Creatinine 0.29(L) 0.80 - 1.30 mg/dL MELISA Comment:Testing performed by : [address] [address] Glucose 116 70 - 199 mg/dL MELISA Comment: Interpretive Data Fasting glucose >/= 126 mg/dl is diagnostic for diabetes. Fasting is defined as no caloric intake for at least 8 hours. Fasting glucose between 100 mg/dl to 125 mg/dl is diagnostic of prediabetes. In a patient with classic symptoms of hyperglycemia or hyperglycemic crisis, a random glucose >/= 200 mg/dl is diagnostic for diabetes. In the absence of unequivocal hyperglycemia, results should be confirmed by repeat testing. The classification and Diagnosis of Diabetes Diabetes Care 2021; 46: S19-S40. Current interpretive data was last revised 2022. Testing performed by: [address] [address] Calcium 9.4 8.5 - 10.3 mg/dL [facility] Comment:Testing performed by : [address] [address] Bilirubin, total 0.7 0.1 - 1.2 mg/dL [facility] Comment:Testing performed by : [address] [address] Protein, pl 6.5 6.5 - 8.5 g/dL [facility] Comment:Testing performed by : [address] [address] Albumin 3.8 3.5 - 5.0 g/dL [facility] Comment:Testing performed by : [address] [address] Alk phos 75 40 - 130 Units/L MELISA Comment:Testing performed by : [address] [address] ALT 39 7 - 55 Units/L MELISA Comment:Testing performed by : [address] [address] AST 24 10 - 50 Units/L MELISA Comment: Hemolyzed; result may be falsely elevated Testing performed by: [address] [address] Blood 2024 7:55 AM CDT 2024 8:04 AM CDT Dorie Armas MD LAB BLOOD ORDERABLES F inal Result Performing Organization Address [facility] Co de Phone Number [address] [address] * Sepsis Lactate w/ Reflex (10/31/2024 5:09 PM CDT) Pathologist [facility] Sepsis Lactate 1.2 0.7 - 2.0 mmol/L Comment:Testing performed by : [facility], [address] [place] [address]., [address] Blood 10/31/2024 5:09 PM CDT 10/31/2024 5:12 PM CDT Giovani Pearce DO LAB BLOOD ORDERABLES Final Result Performing Organization Address [facility] de Phone Number [address] [address] * Blood culture Blood (10/31/2024 5:09 PM CDT) Report Final Report: No growth Comment:Testing performed by : [facility], [address] [place] [address] Blood 10/31/2024 5:09 PM CDT 10/31/2024 10:03 PM CDT Narrative MELISA - 11/05/2024 7:00 AM CDT Collection->Peripheral 1. Blood cultures are incubated for 4 days on a continuously monitored blood culture system. The first report of a negative culture is issued within 24 hours of receipt of the specimen in the laboratory. 2. Positive culture results are reported as soon as they are detected. 3. The most important factor for detection of microbes in the setting of bloodstream infection is the volume of blood submitted for culture. Failure to collect an optimal blood volume can result in false negative blood cultures. 4. For pediatric patients, the recommended blood volume to collect follows a weight based strategy. See the electronic test catalog for collection instructions. 5. For positive blood cultures, a rapid molecular test may be performed for organism identification using the jairo ePlex blood culture identification panel for gram positive (BCID-GP) and gram negative (BCID-GN) organisms. This nucleic acid amplification test detects microbial DNA in positive blood culture broth. This assay has been cleared by the [place] Food and Drug Administration and its performance characteristics have been verified by the [facility]. For questions about this culture, contact the Microbiology Laboratory at [phone]. Interpretive data was last revised on 24. Giovani Pearce DO LAB MICROBIOLOGY - GENERAL ORDERABLES Final Result MELISA [address] [facility] Department [place] [address] * Blood culture Blood (10/31/2024 5:09 PM CDT) Report Final Report: No growth Comment:Testing performed by : [facility], [address] [place]., [address] Blood 10/31/2024 5:09 PM CDT 10/31/2024 10:03 PM CDT [facility] MELISA [facility] 11/05/2024 7:00 AM CDT Collection->Peripheral 1. Blood cultures are incubated for 4 days on a continuously monitored blood culture system. The first report of a negative culture is issued within 24 hours of receipt of the specimen in the laboratory. 2. Positive culture results are reported as soon as they are detected. 3. The most important factor for detection of microbes in the setting of bloodstream infection is the volume of blood submitted for culture. Failure to collect an optimal blood volume can result in false negative blood cultures. 4. For pediatric patients, the recommended blood volume to collect follows a weight based strategy. See the electronic test catalog for collection instructions. 5. For positive blood cultures, a rapid molecular test may be performed for organism identification using the jairo ePlex blood culture identification panel for gram positive (BCID-GP) and gram negative (BCID-GN) organisms. This nucleic acid amplification test detects microbial DNA in positive blood culture broth. This assay has been cleared by the [place] Food and Drug Administration and its performance characteristics have been verified by the [facility]. For questions about this culture, contact the Microbiology Laboratory at [phone]. Interpretive data was last revised on 24. Giovani Pearce DO LAB MICROBIOLOGY - GENERAL ORDERABLES Final Result MELISA [address] [facility] Department [place] [address] * XR Chest 1 Vw Portable (if patient condition/safety warrant portable) (10/31/2024 4:16 PM CDT) Anatomical Region Laterality Modality Body, Chest N/A Computed Radiogr aphy 10/31/2024 4:35 PM CDT Narrative 10/31/2024 4:41 PM CDT EXAM DESCRIPTION: XR CHEST 1 VIEW REASON FOR STUDY: suspect infection Pt reports I went to urgent care on Sunday this past week because I had some foul smelling urine and more diarrhea than normal. They called me today and advised me to come to the ER because my urine culture stated I had pseudomonas and enterococcus faecalis and they told me I needed to come in for IV abx. Pt with hx of quadriplegia and is wheelchair bound. Pt presents with wyatt cath in place and last had it changed on 10/21 TECHNIQUE: 1 radiographic view(s) of the chest. COMPARISON: 03/06/2016 FINDINGS: LUNGS: No focal opacity, pleural effusion, or pneumothorax. HEART/MEDIASTINUM: Cardiac silhouette normal in size. Mediastinal and hilar contours appear normal. LINES/TUBES: None. BONES: No acute osseous abnormality. IMPRESSION: No acute cardiopulmonary abnormality. THIS IS AN ELECTRONICALLY VERIFIED FINAL REPORT 10/31/2024 4:41 PM - Electronically signed by Giovani Vasquez M.D. KT: ULISES Report ID: [id number] Reading Location: [id number] Procedure Note Giovani Vasquez MD - 10/31/2024 EXAM DESCRIPTION: XR CHEST 1 VIEW REASON FOR STUDY: suspect infection Pt reports I went to urgent care on Sunday this past week because I hadsome foul smelling urine and more diarrhea than normal. They called me todayand advised me to come to the ER because my urine culture stated I hadpseudomonas and enterococcus faecalis and they told me I needed to come in for IVabx. Pt with hx of quadriplegia and is wheelchair bound. Pt presents withfoley cath in place and last had it changed on 10/21 TECHNIQUE: 1 radiographic view(s) of the chest. COMPARISON: 03/06/2016 FINDINGS: LUNGS: No focal opacity, pleural effusion, or pneumothorax. HEART/MEDIASTINUM: Cardiac silhouette normal in size. Mediastinal andhilar contours appear normal. LINES/TUBES: None. BONES: No acute osseous abnormality. IMPRESSION: No acute cardiopulmonary abnormality. THIS IS AN ELECTRONICALLY VERIFIED FINAL REPORT 10/31/2024 4:41 PM - Electronically signed by Giovani Vasquez M.D. KT: KT Report ID: [id number] Reading Location: [id number] Giovani Pearce DO IMG XR PROCEDURES Final Res ult * (ABNORMAL) Urinalysis reflex to microscopic and culture Urine (10/31/2024 3:58 PM CDT) Color, ur Yellow Yellow Comment:Testing performed by : [address] [address] Clarity, ur Clear Clear MELISA Comment:Testing performed by : [address] [address] Specific gravity, ur 1.010 1.003 - 1.030 MELISA Comment:Testing performed by : [address] [address] pH, urine 7.0 MELISA Comment: Interpretive Data U rine pH is affected by diet, medications, systemic acid-base disturbances, and renal tubular function. pH may affect urinary stone formation. For example, urine pH below 6.0 may help reduce the tendency for calcium phosphate stones and pH greater than 6.0 may reduce the tendency for uric acid stone formation. Source: [facility] [employer] Current Interpretive Data was last revised on 2017 Testing performed by: [address] [address] Protein, ur ql Negative Negative MELISA Comment:Testing performed by : [address], [place]., [address] Glucose, ur ql Negative Negative MELISA Comment:Testing performed by : [address] [address] Ketones, ur Negative Negative MELISA Comment:Testing performed by : [address], [place]., [address] Bilirubin, ur Negative Negative MELISA Comment:Testing performed by : [address], [place]., [address] Blood, ur Negative Negative MELISA Comment:Testing performed by : [address], [place]., [address] Urobilinogen, ur <2.0 <2.0 mg/dL MELISA Comment:Testing performed by : [address], [place]., [address] Nitrite, ur Positive(A) Negative MELISA Comment:Testing performed by : [address] [address] Leukocyte esterase, ur 4+(A) Negative MELISA Comment:Testing performed by : [address] [address] UA reflex comment Reflex to microscopic UA will be performed. MELISA Comment:Testing performed by : [address] [address] Urine 10/31/2024 3:58 PM CDT 10/31/2024 4:02 PM CDT Narrative MELISA - 10/31/2024 4:16 PM CDT If patient unable to urinate, straight cath Giovani Pearce LAB MICROBIOLOGY - GENERAL ORDERABLES Final Result Performing Organization Address City/[facility] Co de Phone Number MELISA [address] [address] * (ABNORMAL) Urinalysis, microscopic only (10/31/2024 3:58 PM CDT) WBC, ur 21-50(A) 0 - 5 /HPF Comment:Testing performed by : [facility], [address] [place] [address]., [address] RBC, ur 6-10(A) 0 - 2 /HPF MELISA Comment:Testing performed by : [address] [address] Epithelial cells, squamous, ur 11-20(A) 0 - 5 /HPF MELISA Comment:Testing performed by : [address] [address] Mucous, ur Present(A) MELISA Comment:Testing performed by : [address] [address] Culture Reflex Comment Reflex to urine culture will be performed. MELISA Comment:Testing performed by : [address] [address] Urine 10/31/2024 3:58 PM CDT 10/31/2024 4:02 PM CDT Giovani Armas Pearce LAB URINE ORDERABLES Final Result Performing Organization Address [facility] Co de Phone Number MELISA [address] [facility] [place] [address] * (ABNORMAL) Urine culture Urine (10/31/2024 3:58 PM CDT) Report Final Report: Growth indicates contamination with mixed bacterial yasmene. Please submit a new specimen with special attention given to the collection process and to prompt transport to the laboratory. (.) Comment:Testing performed by : [facility], [address] [facility] [place]., [address] Organism GROWTH INDICATES CONTAMINATION WITH MIXED YASMEEN. MELISA Urine 10/31/2024 3:58 PM CDT 10/31/2024 10:20 PM CDT Narrative MELISA - 11/02/2024 6:21 AM CDT Urine culture reflexed based upon urinalysis results. Testing performed by [facility] ([phone]) Giovani Pearce LAB MICROBIOLOGY - GENERAL ORDERABLES Final Result Performing Organization Address City/[facility] Co de Phone Number MELISA [address] [place] [place] [address] * eGFR (10/31/2024 3:57 PM CDT) eGFR >90 >=60 mL/min/1. 73 m2 Comment: Interpretive Data Reference Interval Normal >/= 90 mL/min/1.73m2 Mildly decreased* 60 - 89 mL/min/1.73m2 Mildly to moderately decreased 45 - 59 mL/min/1.73m2 Moderately to severely decreased 30 - 44 mL/min/1.73m2 Severely decreased 15 - 29 mL/min/1.73m2 Kidney Failure < 15 mL/min/1.73m2 *Relative to young adult level Estimated glomerular filtration rate is determined by the 2020 CKD-EPI equation recommended by the National Kidney Foundation (A Unifying Approach to GFR Estimation: Recommendations of the NKF-ASK Task Force on Reassessing the Inclusion of Race in Diagnosing Kidney Disease, JASN 2020). The CKD-EPI equation should not be used for patients with unstable renal function and has not been validated in children and those over 70. Current interpretive data was last reviewed 2021. Testing performed by: [facility], [address] [place] [address]., [address] Blood 10/31/2024 3:57 PM CDT 10/31/2024 4:02 PM CDT Giovani Pearce LAB BLOOD ORDERABLES Final Result Performing Organization Address City/[facility]/ZIP Co de Phone Number MELISA [facility] [place] [address] * Differential, auto (10/31/2024 3:57 PM CDT) Neutrophil abs 4.27 1.50 - 6.50 K/cumm Comment:Testing performed by : [address] [address] Imm gran abs 0.02 0.00 - 0.10 K/cumm MELISA Comment:Testing performed by : [address] [address] Lymphocyte abs 1.73 0.80 - 3.30 K/cumm [facility] Comment:Testing performed by : [address] [address] Monocyte abs 0.68 0.20 - 0.80 K/cumm [facility] Comment:Testing performed by : [address] [address] Eosinophil abs 0.14 0.00 - 0.50 K/cumm [facility] Comment:Testing performed by : [address] [address] Basophil abs 0.03 0.00 - 0.10 K/cumm [facility] Comment:Testing performed by : [address] [address] Neutrophil pct 62.2 % [facility] Comment: Interpretive Data Percent cell count reference ranges are not reported, since discordance with absolute values may lead to misinterpretation of CBC data. Current Interpretive Data was last revised on 2017. Testing performed by: [address] [address] Imm gran pct 0.3 % [facility] Comment: Interpretive Data Percent cell count reference ranges are not reported, since discordance with absolute values may lead to misinterpretation of CBC data. Current Interpretive Data was last revised on 2017. Testing performed by: [address] [address] Lymphocyte pct 25.2 % [facility] Comment: Interpretive Data Percent cell count reference ranges are not reported, since discordance with absolute values may lead to misinterpretation of CBC data. Current Interpretive Data was last revised on 2017. Testing performed by: [address] [address] Monocyte pct 9.9 % MELISA Comment: Interpretive Data Percent cell count reference ranges are not reported, since discordance with absolute values may lead to misinterpretation of CBC data. Current Interpretive Data was last revised on 2017. Testing performed by: [address] [address] Eosinophil pct 2.0 % MELISA Comment: Interpretive Data Percent cell count reference ranges are not reported, since discordance with absolute values may lead to misinterpretation of CBC data. Current Interpretive Data was last revised on 2017. Testing performed by: [address] [address] Basophil pct 0.4 % MELISA Comment: Interpretive Data Percent cell count reference ranges are not reported, since discordance with absolute values may lead to misinterpretation of CBC data. Current Interpretive Data was last revised on 2017. Testing performed by: [address] [address] Blood 10/31/2024 3:57 PM CDT 10/31/2024 4:02 PM CDT Giovani Pearce DO LAB BLOOD ORDERABLES Final Result [facility] [address] [facility] Department [place] [address] * (ABNORMAL) CBC with auto differential (10/31/2024 3:57 PM CDT) WBC 6.87 3.80 - 9.90 K/cumm Comment:Testing performed by : [address] [address] Hgb 13.5 13.0 - 17.5 g/dL MELISA RIZZO Comment:Testing performed by : [address] [address] Hct 38.7(L) 38.9 - 50.3 % MELISA Comment:Testing performed by : [address] [place]., [address] Plt 215 150 - 400 K/cumm MELISA Comment:Testing performed by : [facility], [address] [place] [address]., [address] MPV 9.9 9.1 - 12.3 fL MELISA Comment:Testing performed by : [address] [address] RBC 4.12(L) 4.30 - 5.80 M/cumm MELISA Comment:Testing performed by : [address] [address] MCV 93.9 81.3 - 96.4 fL MELISA Comment:Testing performed by : [address] [address] MCH 32.8 27.1 - 33.3 pg MELISA Comment:Testing performed by : [address] [address] MCHC 34.9 32.3 - 35.7 g/dL MELISA Comment:Testing performed by : [address], [address] RDW CV 12.4 11.1 - 14.9 % MELISA Comment:Testing performed by : [address], [address] RDW SD 42.8 35.7 - 48.1 fL MELISA Comment:Testing performed by : [address] [address] NRBC abs 0.00 0.00 - 0.01 K/cumm MELISA Comment:Testing performed by : [address] [address] Blood 10/31/2024 3:57 PM CDT 10/31/2024 4:02 PM CDT Giovani Pearce DO LAB BLOOD ORDERABLES Final Result MELISA [address] [facility] Department [place] [address] * (ABNORMAL) Comprehensive metabolic panel (10/31/2024 3:57 PM CDT) Sodium 137 135 - 145 mmol/L Comment:Testing performed by : [address] [address] Potassium, pl 3.9 3.3 - 4.9 mmol/L MELISA Comment:Testing performed by : [address], [place]., [address] Chloride 100 97 - 110 mmol/L MELISA Comment:Testing performed by : [address], [place]., [address] CO2 26 22 - 32 mmol/L MELISA Comment:Testing performed by : [address], [place]., [address] Anion gap 11 2 - 15 mmol/L MELISA Comment:Testing performed by : [address], [place]., [address] BUN 15 6 - 25 mg/dL MELISA Comment:Testing performed by : [address] [address] Creatinine 0.33(L) 0.80 - 1.30 mg/dL MELISA Comment:Testing performed by : [address] [address] Glucose 129 70 - 199 mg/dL [facility] Comment: Interpretive Data Fasting glucose >/= 126 mg/dl is diagnostic for diabetes. Fasting is defined as no caloric intake for at least 8 hours. Fasting glucose between 100 mg/dl to 125 mg/dl is diagnostic of prediabetes. In a patient with classic symptoms of hyperglycemia or hyperglycemic crisis, a random glucose >/= 200 mg/dl is diagnostic for diabetes. In the absence of unequivocal hyperglycemia, results should be confirmed by repeat testing. The classification and Diagnosis of Diabetes Diabetes Care 2021; 46: S19-S40. Current interpretive data was last revised 2022. Testing performed by: [address] [address] Calcium 10.4(H) 8.5 - 10.3 mg/dL MELISA Comment:Testing performed by : [address], [place]., [address] Bilirubin, total 0.6 0.1 - 1.2 mg/dL MELISA Comment:Testing performed by : [address] [address] Protein, pl 7.4 6.5 - 8.5 g/dL MELISA Comment:Testing performed by : [address] [address] Albumin 4.3 3.5 - 5.0 g/dL MELISA Comment:Testing performed by : [address] [address] Alk phos 85 40 - 130 Units/L MELISA Comment:Testing performed by : [address] [address] ALT 40 7 - 55 Units/L MELISA Comment:Testing performed by : [address] [address] AST 26 10 - 50 Units/L MELISA Comment:Testing performed by : [address] [address] Blood 10/31/2024 3:57 PM CDT 10/31/2024 4:02 PM CDT Giovani Pearce DO LAB BLOOD ORDERABLES Final Result MELISA [address] [facility] Department [place] [address] * (ABNORMAL) POCT urinalysis dipstick (10/28/2024 2:34 PM CDT) Color, Urine, POC Yellow Clarity, ur, POC Cloudy(A) Clear Glucose, ur, POC Negative Negative MG/DL Bilirubin, ur, POC Negative Negative, Small, Moderate, Large Ketones, ur, POC Negative Negative Specific Almo, POC 1.020 1.003 - 1.030 Blood, ur, POC Hemolyzed, trace(A) Negative pH, ur, POC 6.0 5.0 - 8.0 Protein, ur, POC Negative Negative Urobilinogen, urine, POC 0.2 0.2 - 1.0 mg/dL Nitrite, ur, POC Negative Negative Leukocytes, ur, POC Small(A) Negative Lot Number [id number] Urine 10/28/2024 2:34 PM CDT Misty Jewell NP POINT OF CARE TEST ORDERAB LES Final Result * (ABNORMAL) Urine culture Urine, suprapubic catheter (10/28/2024 2:33 PM CDT) Report Final Report: Greater than or equal to 100,000 colonies/mL of Pseudomonas aeruginosa Greater than or equal to 100,000 colonies/mL of Pseudomonas aeruginosa #2 Greater than or equal to 100,000 colonies/mL of Enterococcus faecalis (.) Comment:Testing performed by : [facility], [address] [place]., [address] Organism PSEUDOMONAS AERUGINOSA CERNER CH Organism PSEUDOMONAS AERUGINOSA CERNER CH Organism ENTEROCOCCUS FAECALIS CERNER Urine, suprapubic catheter 10/28/2024 2:33 PM CDT 10/29/2024 12:02 AM CDT Narrative CERNER CH - 10/31/2024 12:34 PM CDT Testing performed by [facility] ([phone]) Organism Antibiotic Method Susceptibility Pseudomonas aeruginosa Aztreonam INTERPRETATION Susceptible Pseudomonas aeruginosa Ceftazidime INTERPRETATION Susceptible Pseudomonas aeruginosa Ciprofloxacin INTERPRETATION Resistant Pseudomonas aeruginosa Cefepime INTERPRETATION Susceptible Pseudomonas aeruginosa Amikacin INTERPRETATION Susceptible Pseudomonas aeruginosa Imipenem INTERPRETATION Intermediate Pseudomonas aeruginosa Meropenem INTERPRETATION Susceptible Pseudomonas aeruginosa Piperacillin/Tazobactam INTERPR ETATION Susceptible Pseudomonas aeruginosa Tobramycin INTERPRETATION Susceptible Pseudomonas aeruginosa Aztreonam INTERPRETATION Susceptible Pseudomonas aeruginosa Ceftazidime INTERPRETATION Susceptible Pseudomonas aeruginosa Ciprofloxacin INTERPRETATION Intermediate Pseudomonas aeruginosa Cefepime INTERPRETATION Susceptible Pseudomonas aeruginosa Amikacin INTERPRETATION Susceptible Pseudomonas aeruginosa Imipenem INTERPRETATION Resistant Pseudomonas aeruginosa Meropenem INTERPRETATION Susceptible Pseudomonas aeruginosa Piperacillin/Tazobactam INTERPR ETATION Susceptible Pseudomonas aeruginosa Tobramycin INTERPRETATION Susceptible Enterococcus faecalis Ampicillin (EFRAIN) INTERPRETATIO N Susceptible Enterococcus faecalis Vancomycin (EFRAIN) INTERPRETATIO N Susceptible Enterococcus faecalis Linezolid (EFRAIN) INTERPRETATIO N Susceptible Enterococcus faecalis Doxycycline (EFRAIN) INTERPRETATIO N Susceptible Enterococcus faecalis Nitrofurantoin (EFRAIN) INTERPRETAT ION Susceptible Misty Jewell NP LAB MICROBIOLOGY - GENERAL ORDERABLES Final Result MELISA [address] Department [place] [address] * PSA screen (04/12/2023 3:24 AM CDT) PSA-Total 1.99 <=3.90 ng/mL JULIANALEXANDRA Comment: Interpretive Data AGE SEX REFERENCE INTERVAL [...] data last revised 21. Testing performed by: [facility], [address] [place] [address]., [address] Blood 04/12/2023 3:24 AM CDT 04/12/2023 3:39 AM CDT us Rasheed Kumari MD LAB BLOOD ORDERABLES Final R esult Performing Organization Address City/[facility] Co de Phone Number MELISA [address] [facility] Department [place] [address] from Last 3 Months or Most Recently Relevant to Health Maintenance Additional Health Concerns Infection Onset Date Last Indicated MDR gram neg/ESBL 10/28/2024 10/28/2024 Insurance [facility]V[employer]AGE [employer] [facility] [place] [address] [employer] [facility] [place] [address] [facility] [employer] Advance Directives For more information, please contact: [phone] * Full Code (Latest Code Status on File) Date Activated Date Inactivated Comments 2024 2:29 AM 11/05/2024 6:15 PM * Full Code Date Activated Date Inactivated Comments 10/31/2024 6:41 PM 2024 2:29 AM * Full Code Date Activated Date Inactivated Comments 05/04/2024 9:29 PM 05/09/2024 4:29 PM * Full Code Date Activated Date Inactivated Comments 11/25/2023 8:17 PM 11/27/2023 8:40 PM * Full Code Date Activated Date Inactivated Comments 10/10/2023 12:57 AM 10/11/2023 7:59 PM Care Teams Panel Gluer Relationship Specialty Start Date End Date Pranav Jones MD PCP - General 01/10/17 Sandra Frazier, OT Occupational Therapist Occupational Therapy 01/07/18 Madhuri Abdul, YENNIFER [address] [id number] [address] [place] [address] Physical Therapist Physical Therapy 12/20/21
--- OUTSIDE RECORDS SUMMARY | 2024-12-19 13:55 | XMS_ITS | Data Portability ---
Author Organization [facility] Address [address] [facility] [place] [address] Care Team Providers Care Explosive Operator Fuse Name Role Phone ANUP JONES Primary Care Provider Unavailabl e Assessment Encounter Date Assessment Date Assessment LastModified by Organization Details LastModified Time 12/06/2023 12/06/2023 Wound care referral blood work see me back in 2 months [email or web address] Not available 12/06/2023 22:50:03 04/24/2024 04/24/2024 flu shot today I recommended he get COVID and RSV we will see him back in about 3-4 months overall he appears to be stable. His anxiety is managed conservatively [email or web address] Not available 04/25/2024 12:47:57 07/14/2024 07/14/2024 we do know that he has some cervical disc disease from his injury we will try the tizanidine. See me back in 3 months it let me know in about a week how he is doing Not available 07/14/2024 22:31:11 10/13/2024 10/13/2024 blood work x-ray of the shoulder orthopedic referral possibly a cortisone shot increase baclofen to 10 mg twice a day p.r.n. follow up 3 months recheck liver enzymes Not available 10/13/2024 21:40:51 12/11/2024 12/11/2024 He will keep his regular appointment no change in medicines at this time [email or web address] Not available 12/12/2024 22:28:13 Plan of Treatment Reminders Order Date Submit Date Provider Last Modified By Organization Details Last Modified Time Details Appointments ANY 15 2024 02:15P M Anup Jones MD Not available Not available Not available Lab lipid panel, serum 2024 025 RANI [facility], [address] [place] [address] 2, [place], [address], 11/04/2024 15:11:49 CMP, serum or plasma 2024 025 [email or web address] [facility], [address] [place] [address] 2, [place], [address], 10/30/2024 23:58:01 CBC w/ auto diff 2024 025 [place] [id number] [facility], [address] [place] [address] 2, [place], [address], 10/30/2024 23:58:00 CBC w/ auto diff 2023 024 RANI [facility], [address] [place] [address] 2, [place], [address], 12/10/2023 19:04:41 CMP, serum or plasma 2023 024 RANI [facility], [address] [place] [address] 2, [place], [address], 12/10/2023 19:04:41 Referral orthopedi c surgeon referral 2024 025 RANI [facility], [address] [facility] [address], [address], [place], [address], 11/20/2024 14:20:39 wound care referral - Pt seen Dr Trammell and he told pt he needed to have wound care. 2023 024 RANI [facility], [address], [address], [place], [address], 03/12/2024 15:31:13 Procedures None recorded. Surgeries None recorded. Imaging XR, shoulder - Right shoulder 2024 025 RANI Not available 12/16/2024 04:12:38 Medication Orders tizanidin e 4 mg tablet 2023 024 [id number], [address] [facility], [place], [place], [id number], 07/15/2024 12:38:46 Patient TargetsNo targets recorded. Patient Instructions Encounter Date Encounter Id Patient Instructions Last Modified By Organization Details Last Modified Time 12/11/2024 [id number] A healthy lifestyle: care instructions [email or web address] Not available 12/12/2024 22:28:47 Reason for Referral Pt seen Dr Trammell and he t old pt he needed to have wound care. Referring Physician: Anup Jones, Internal Medicine, Encounter Date: 12/06/2023 Orthopedic Surgeon Referral for Pain of shoulder region Referring Physician: Anup Jones, Internal Medicine, Encounter Date: 10/13/2024 Results Created Date Observation Date Name Description Value Unit Range Abnormal Flag Note LastModifiedBy Organization Detail LastModifiedTime 11/21/1911/21/2023 Prost ate speci fic Ag [Mass /volu [...] koko Not Available Not Available 09/10/2024 11:56:04 04/24/11/21/2023 Compr ehens randy metab olic 1999 panel [...] 1999 panel - Serum or Plasm a creatinine low creat inine Not Available Not Available 09/10/2024 11:56:04 11/21/19 24 11/21/2023 Compr ehens randy metab olic 2000 panel - Serum or Plasm a GFR >60 GFR Not Available Not Availa ble 09/10/2024 11:56:04 11/21/19 24 11/21/2023 Compr ehens randy metab olic 2000 panel - Serum or Plasm a alkaline phosphatase alkal ine phosp hatas e Not Available Not Available 09/10/2024 11:56:04 11/21/19 24 11/21/2023 Compr ehens randy metab olic 1999 panel - Serum or Plasm a alanine [...] total Not Available Not Available 09/10/2024 11:56:04 04/24/11/21/2023 Compr ehens randy metab olic 2000 panel [...] ocrit Not Available Not Available 09/10/2024 11:56:04 11/21/19 [...] width Not Available Not Available 09/10/2024 11:56:04 11/21/1911/21/2023 CBC W Auto Diffe renti al panel - Blood platelets plate lets Not Available Not Available 09/10/2024 11:56:04 11/21/1911/21/2023 CBC W Auto Diffe renti al panel - Blood mean platelet volume mean plate let volum e Not Available Not Available 09/10/2024 11:56:04 11/21/1911/21/2023 CBC W Auto Diffe renti al panel - Blood neutrophils neutr ophil s Not Available Not Available 09/10/2024 11:56:04 11/21/1911/21/2023 CBC W Auto Diffe renti al panel - Blood lymphocytes lymph ocyte s Not Available Not Available 09/10/2024 11:56:04 11/21/19 24 11/21/2023 CBC W Auto Diffe renti al panel - Blood monocytes monoc ytes Not Available Not Available 09/10/2024 11:56:04 11/21/19 24 11/21/2023 CBC W Auto Diffe renti al panel - Blood eosinophils eosin ophil s Not Available Not Available 09/10/2024 11:56:04 11/21/19 24 11/21/2023 CBC W Auto Diffe renti al panel - Blood basophils basop hils Not Available Not Available 09/10/2024 11:56:04 11/21/1911/21/2023 CBC W Auto Diffe renti al panel - Blood immature granulocytes high immat ure granu locyt es Not Available Not Available 09/10/2024 11:56:04 11/21/1911/21/2023 CBC W Auto Diffe renti al panel - Blood neutrophils, absolute count neutr ophil s, absol [place] count Not Available Not Available 09/10/2024 11:56:04 11/21/19 24 11/21/2023 CBC W Auto Diffe renti al panel - Blood lymphocytes, absolute count lymph ocyte s, absol [place] count Not Available Not Available 09/10/2024 11:56:04 11/21/19 24 11/21/2023 CBC W Auto Diffe renti al panel - Blood monocytes, absolute count monoc ytes, absol [place] count Not Available Not Available 09/10/2024 11:56:04 11/21/1911/21/2023 CBC W Auto Diffe renti al panel - Blood eosinophils, absolute count eosin ophil s, absol [place] count Not Available Not Available 09/10/2024 11:56:04 11/21/19 24 11/21/2023 CBC W Auto Diffe renti al panel - Blood basophils, absolute count basop hils, absol [place] count Not Available Not Available 09/10/2024 11:56:04 11/21/1911/21/2023 [...] 2000 panel - Serum or Plasm a GFR [...] 1999 panel - Serum or Plasm a bilirubin, [...] neutrophils, absolute count neutr ophil s, absol [place] count Not Available Not Available 09/10/2024 11:56:05 12/10/19 24 12/10/2023 CBC W Auto Diffe renti al panel - Blood lymphocytes, absolute count lymph ocyte s, absol [place] count Not Available Not Available 09/10/2024 11:56:05 12/10/19 24 12/10/2023 CBC W Auto Diffe renti al panel - Blood monocytes, absolute count monoc ytes, absol [place] count Not Available Not Available 09/10/2024 11:56:05 12/10/19 24 12/10/2023 CBC W Auto Diffe renti al panel - Blood eosinophils, absolute count eosin ophil s, absol [place] count Not Available Not Available 09/10/2024 11:56:05 12/10/19 24 12/10/2023 CBC W Auto Diffe renti al panel - Blood basophils, absolute count basop hils, absol [place] count Not Available Not Available 09/10/2024 11:56:05 [...] nitrite [presence] in urine by test strip Sulya torantelmo test findin g text: negati ve normal [...] Address Organization Details Recorded Time Hyperlipide abdelrahman 42903819 Active 2023 BEN[place]O [place], [place] - [facility] 4 15:53:37 Vitamin D deficiency 30624204 Active 2023 [place], [place] [facility] 4 15:53:37 Screening for malignant neoplasm of prostate Active 2023 [place], [place] - [facility] 4 15:53:38 Open wound of left foot 8499712179909 9105 Active 2023 [place], [place] [facility] 16:36:27 Problem Notes None recorded. Procedures Surgical History Date Name Laterality Status Provider Name and Address Organization Details Recorded Time procedure on spinal cord completed Blanquita Bray MA [facility] 11/12/2023 15:30:07 catheterization completed Blanquita Bray MA [facility] 11/12/2023 15:30:23 Imaging Results None recorded. Procedure [...] Available Not Available baclofen 10 mg tablet TAKE 1 TABLET BY MOUTH TWICE DAILY NEEDED active Not Available Not Available No t Available cephalexin 500 mg capsule 04/24 completed [...] oin monohydrate /macrocryst als 100 mg capsule active Not Available Not Available Not Available baclofen 5 mg tablet TAKE 1 TABLET BY MOUTH TWICE DAILY NEEDED 11/24 completed Not Available Not Available Not Available Vitals Date Recorded Body weight Heart rate Oxygen saturation Oxygen saturation in Arterial blood by Pulse oximetry Provider Name and Address Organization Details Last Updated DateTime 12/06/2023 45200.44 g 81 /min 99 % 99 % Talita SolomonBENITO [facility] 12/06/2023 15:57:24 Date Recorded Heart rate Oxygen saturation Oxygen saturation in Arterial blood by Pulse oximetry Systolic blood pressure Diastolic blood pressure Provider Name and Address Organization Details Last Updated DateTime 4 70 /min 98 % 98 % 124 mm[Hg] 62 mm[Hg] Talita Solomon MA [facility] 4 16:26:43 Date Recorded Heart rate Oxygen saturation Oxygen saturation in Arterial blood by Pulse oximetry Systolic blood pressure Diastolic blood pressure Provider Name and Address Organization Details Last Updated DateTime 4 68 /min 96 % 96 % 128 mm[Hg] 70 mm[Hg] Talita Solomon BENITO [facility] 4 15:50:22 Date Recorded Heart rate Oxygen saturation Oxygen saturation in Arterial blood by Pulse oximetry Systolic blood pressure Diastolic blood pressure Provider Name and Address Organization Details Last Updated DateTime 5 67 /min 97 % 97 % 116 mm[Hg] 72 mm[Hg] Jonna Jarquin MA [facility] 5 14:43:18 Date Recorded Body height Body mass index (BMI) Body weight Oxygen saturation Oxygen saturation in Arterial blood by Pulse oximetry Heart rate Systolic blood pressure Diastolic blood pressure Provider Name and Address Organization Details Last Updated DateTime 5 175.26 cm 31.7 kg/m2 00118.3 6 g 95 % 95 % 60 /min 132 mm[Hg] 78 mm[Hg] Lori Ott MA [facility] 5 16:38:35 Social History Question Answer Notes LastModified by Organizat ion Details LastModified Time Tobacco Smoking Status Former Smoker Blanquita Bray MA [facility] 11/12/2023 15:28:31 Do You Have An Advance Directive? No Information n ot available 11/12/2023 Are You Blind Or Do You Have [...] No Information not available 04/24/2024 Are You Deaf Or Do You Have Serious Difficulty Hearing? No Information not available 11/12/2023 What Type Of Diet Are You Following? REGULAR Information n ot available 11/12/2023 Are There Any Guns Present In Your Home? No Information not available 04/24/2024 What Was The Date Of Your Most Recent Tobacco Screening? 12/11/2024 Information not available 12/11/2024 What Is Your Current Pack Years? 10-19packyea [...] PPD Information not available 11/12/2023 Do You Use Sunscreen Routinely? No Information not available 11/12/2023 Has Tobacco Cessation Counseling Been Provided? No Information not available 04/24/2024 On What Date Was Tobacco Cessation Counseling Provided? 10/13/2024 [email or web address] Information not available 10/13/2024 Sex: Male Functional Status Question Answer Note LastModified by Organizat ion Details LastModified Time Do you use any illicit or recreational drugs? No Information not available 11/12/2023 Do you or have you ever used any other forms of tobacco or nicotine? No Information not available 11/12/2023 What is your level of alcohol consumption? Occasional Information not available 12/11/2024 Are you currently employed? No Information not available 11/12/2023 Are you able to care for yourself? Yes Information n ot available 11/12/2023 What is your exercise level? Occasional Information not available 11/12/2023 Mental Status Question Answer Note LastModified by Organization D etails LastModified Time Do you feel stressed (tense, restless, nervous, or anxious, or unable to sleep at night)? [id number] Information not available 11/12/2023 Family History Nothing Reported. Medical History Condition Response Coronary Artery Disease N Other N High Blood Pressure N Atrial Fibrillation N Kidney or Bladder Problems N Thyroid Problems N GI Problems N Depression N COPD N Blood Clots N Skin Problems N Anemia N Heart Attack ([place]) N Anxiety Disorder N Diabetes N Muscle, [...] vector-nr, rS-Ad26, PF, 0.5 mL 10/05/2020 completed Jonna Jarquin [place], [place] [facility] 10/13/2024 14:38:18 COVID-19 vaccine, vector-nr, rS-Ad26, PF, 0.5 mL 10/12/2020 completed Jonna Jar[place], [place] [facility] 10/13/2024 14:38:18 Influenza, split virus, quadrivalent, PF 09/07/2023 completed BENITO [place], [place] [facility] 10/13/2024 14:38:18 Influenza, split virus, quadrivalent, PF 05/08/2018 completed BENITO [place] [facility] 10/13/2024 14:38:18 Influenza, split [...] completed Anup Jones MD Attn: Accounting[address] [place], [address], [facility] - [facility] 04/25/2024 12:45:58 Past Encounters Encounter ID Performer Location Encounter Start Date Encounter Closed Date Diagnosis/Indication Diagnosis SNOMED-CT Code Diagnosis ICD10 Code Diagnosis Note [id number] Anup Jones MD [facility] [place] [address] [place] [id number] 11/12/2023 14:47:11 11/12/2023 15:58:21 Hyperlipidemia 31718366 E78.5 Vitamin D deficiency 347 05997 E55.9 Screening for malignant neoplasm of prostate 726723378 Z12.5 [id number] Anup Jones MD [facility] [place] [address] [place] [id number] 12/06/2023 15:26:19 12/06/2023 17:07:10 Open wound of left foot 6359802913 3984213 S91.302A Hyperlipidemia 92059719 E78.5 Diarrhea 62919312 R19.7 [id number] Anup Jones MD [facility] [place] [address] [place], [place] [address] 04/24/2024 16:01:31 04/24/2024 17:15:09 Administration of influenza vaccine 59980705 Z23 Hyperlipidemia 96039474 E78.5 Vitamin D deficiency 347 41135 E55.9 [id number] Anup Jones MD [facility] [place] [address] [place], [place] [address] 07/14/2024 15:38:38 07/14/2024 16:30:31 Spasticity 022391764 R25.2 Hyperlipidemia 87631756 E78.5 [id number] Anup Jones MD [facility] [place] [address] [place], [place] [address] 10/13/2024 14:32:12 10/13/2024 15:59:53 Hyperlipidemia 79272834 E78.5 Pain of [facility] 72756003 M25.511 Liver enzy mes outside reference range 669968772 R94.5 [id number] Anup Jones MD [facility] [place] [address] [place], [place] [address] 12/11/2024 16:02:04 12/11/2024 17:15:50 Body mass index 30+ - obesity 398177053 Z68.31 Obese class I 7456005896 71726 E66.811 Hyperlipidemia 51743886 E78.5 Health Concerns Section Related Observation LastModified by Organization Detai ls LastModified Time None Recorded Concern Status LastModified by Organization Details LastModified Time None Recorded Advance Directives Directive N: Payers Encounter Date Sequence Insurance Name Policy Number Policy [place] Covered Member ID [place] Member ID Guarantor Name 12/06/2023 1 [facility] (MEDICARE REPLACEMENT/A DVANTAGE - HMO) [id number] David James [id number] David James 04/24/2024 1 [facility] (MEDICARE REPLACEMENT/A DVANTAGE - HMO) [id number] David James [id number] David James 07/14/2024 1 [facility] (MEDICARE REPLACEMENT/A DVANTAGE - HMO) [id number] David James [id number] David Davenportmohamudtatyana 10/13/2024 1 [facility] (MEDICARE REPLACEMENT/A DVANTAGE - HMO) [id number] David James [id number] David Davenportmohamudtatyana 12/11/2024 1 [facility] (MEDICARE REPLACEMENT/A DVANTAGE - HMO) [id number] David Davenportmohamudtatyana [id number] David James Notes Date Note Type Note Provider Name and Address Organization Details Recorded Time 12/06/2023 text/html Diarrhea was fou nd to have proctitis also developed an open wound left leg is seen the aluminum shingle roofer who wants him referred to wound center Anup Jones MD Attn: Accounting, [address] [facility], [place], [address], [facility] 12/06/2023 22:50:34 04/24/2024 text/html Hyperlipidemia h e does try to watch what he eats. Low vitamin-D we are keeping an eye on that anxiety is doing fine. Went to the ER for some diarrhea CT scan he said was fine it has not resolved Anup Jnoes MD Attn: Accounting, [address] [facility], [place], [address], [facility] 04/25/2024 12:48:13 07/14/2024 text/html a couple of ER v isits for UTI and bowel problems and that is all settled down but he has noticed a little bit of burning from his neck however toes right shoulder a little bit there becoming uncomfortable for him. No SI no HI Anup Jones MD Attn: Accounting, [address] [facility], [place], [address], [place] [facility] 07/14/2024 22:31:33 10/13/2024 text/html he is taking his cholesterol medicine needs to have that checked low vitamin-D level he has been taking his supplementation anxiety has been stable on conservative measures having some shoulder pain that bothers him and from time to time some spasticity Anup Jones MD Attn: Accounting, [address] [facility], [place], [address], [place] [facility] 10/13/2024 21:41:08 12/11/2024 text/html Hospitalized for multidrug resistant polymicrobial UTI after ID saw the patient they feel that my just been colonization so deescalation of antibiotics was quick he is home he is doing better Anup Jones MD Attn: Accounting,[address] [facility], [place], [address], [facility] 12/12/2024 22:28:49
--- OUTSIDE RECORDS SUMMARY | 2024-12-19 13:55 | XMS_ITS | Encounter Summary ---
Author Organization [facility] Address [address] [place] [address] Phone Care Team Providers Care Credit Administration Specialist Name Role Phone Pranav Jones MD Primary Care Provider + [phone] Sandra Frazier OT Unavailable Unavailab Madhuri De Leon DPT Unavail able Encounter Details Date Type Department Care Team (Late st Contact Info) Description 03/22/[address] Medical Office Building [address] [place] [address] Piyush Andrade MD [address] [address] Social History Tobacco Use Types Packs/Day Years Used Date Smoking Tobacco: Former Cigarettes Smokeless Tobacco: Never Alcohol Use Standard Drinks/Week Comments Defer 0 (1 standard drink = 0.6 oz pur e alcohol) Sex and Gender Information Value Date Recorded Sex Assigned at Not on file Legal Sex Male 8:11 AM [employer] Gender Identity Not on file Sexual Orientation Not on file documented as of this encounter Plan of Treatment Not on file documented as of this encounter Visit Diagnoses Not on filedocumented in this encounter Additional Health Concerns Infection Onset Date Last Indicated Resolved Time Diarrhea 09/17/2023 09/17/2023 10/01/2023 3:05 AM [employer] INS[employer] COVID: Suspected 10/09/2023 10/09/2023 10/09/2023 6:32 PM CDT C. difficile suspected 10/09/2023 10/09/202310/11 3:07 AM CDT C. difficile suspected 11/25/2023 11/25/202311/27 3:05 AM CDT MDR gram neg/ESBL 10/28/2024 10/28/2024 documented as of this encounter Care Teams Credit Administration Specialist Relationship Specialty Start Date End Date Pranav Jones MD PCP - General 01/10/17 Sandra Frazier OT Occupational Therapist Occupational Therapy 01/07/18 Madhuri Abdul, YENNIFER [address] [place] [id number] [address] Physical Therapist Physical Therapy 12/20/21 documented as of this encounter
--- OUTSIDE RECORDS SUMMARY | 2024-12-19 13:56 | XMS_ITS | Data Portability ---
Author Organization [employer], Main Office Address [address] [place] [address] Care Team Providers Care Admissions Consultant Name Role Phone ANUP JONES Primary Care Provider ANUP JONES Referring Provider [phone] Assessment Encounter Date Assessment Date Assessment LastModified by Organization Details LastModified Time 12/03/2023 12/03/2023 This note is dictated and transcribed by [employer]. [employer] Specialist variances may occur. Despite proofreading, typographical errors may occur. Occasional wrong-word or 'uvlst-j-[id number]' substitutions may have occurred due to the inherent limitations of voice recording. Read the chart carefully and recognize, using context, where substitutions have occurred. Not available 12/03/2023 18:11:55 12/12/2023 12/12/2023 This note is dictated and transcribed by [employer]. [employer] Specialist variances may occur. Despite proofreading, typographical errors may occur. Occasional wrong-word or 'mtvbw-v-nvoh' substitutions may have occurred due to the inherent limitations of voice recording. Read the chart carefully and recognize, using context, where substitutions have occurred. Not available 12/12/2023 14:25:01 12/19/2023 12/19/2023 This note is dictated and transcribed by [employer]. [employer] Specialist variances may occur. Despite proofreading, typographical errors may occur. Occasional wrong-word or 'wxggb-s-bvfd' substitutions may have occurred due to the inherent limitations of voice recording. Read the chart carefully and recognize, using context, where substitutions have occurred. Not available 12/19/2023 17:02:16 03/26/2024 03/26/2024 This note is dictated and transcribed by [employer]. [employer] Specialist variances may occur. Despite proofreading, typographical errors may occur. Occasional wrong-word or 'byadh-c-wvdx' substitutions may have occurred due to the [...] e 2 % topical cream 2023 024 [employer] #[id number], [address] [facility], [place], [place], [id number], 17:09:02 Patient TargetsNo targets recorded. Patient Instructions Encounter Date Encounter Id Patient Instructions Last Modified By Organization Details Last Modified Time 12/03/2023 [id number] wound care dressing instructions thomas Not available 12/03/2023 18:11:38 12/12/2023 [id number] wound care dressing instructions thomas Not available 12/12/2023 14:25:23 03/26/2024 [id number] paronychia: care instructions thomas Not available 03/26/2024 16:47:08 Reason for Referral None Reported. Results Created Date Observation Date Name Description Value Unit Range Abnormal Flag Note LastModifiedBy Organization Detail LastModifiedTime 11/21/1911/21/2023 CBC/C OMPLE TE BLD COUNT W/DIF F white blood cells 5.0 x10'3 /uL 4.2-[address] [facility] (Lab) [address] [place], [address], 11/21/2023 13:31:14 11/21/19 24 11/21/2023 CBC/C OMPLE TE BLD COUNT W/DIF F red blood cells 3.92 x10'6 /uL 4.10-5 [address] [facility] (Lab) [address] [place], [address], 11/21/2023 13:31:14 11/21/19 24 11/21/2023 CBC/C OMPLE TE BLD COUNT W/DIF F hemoglobin 13.0 g/dL 13.2-1 7[address] [facility] (Lab) [address] [place], [address], 11/21/2023 13:31:14 11/21/19 24 11/21/2023 CBC/C OMPLE TE BLD COUNT W/DIF F hematocrit 37.1 % 39.3-5 0.[address] [facility] (Lab) [address] [place], [address], 11/21/2023 13:31:14 11/21/19 24 11/21/2023 CBC/C OMPLE TE BLD COUNT W/DIF F mean red cell volume 94.6 fL 80.0-[address] [facility] (Lab) [address] [place], [address], 11/21/2023 13:31:14 11/21/19 24 11/21/2023 CBC/C OMPLE TE BLD COUNT W/DIF F mean red cell hemoglobin 33.2 pg 27.0-3 3[address] [facility] (Lab) [address] [place], [address], 11/21/2023 13:31:14 11/21/19 24 11/21/2023 CBC/C OMPLE TE BLD COUNT W/DIF F mean RBC HGB concentratio n 35.0 g/dL 31.0-[address] [facility] (Lab) [address] [place], [address], 11/21/2023 13:31:14 11/21/19 24 11/21/2023 CBC/C OMPLE TE BLD COUNT W/DIF F red cell distribution width 12.8 % 11.8-[address] [facility] (Lab) [address] [place], [address], 11/21/2023 13:31:14 11/21/19 24 11/21/2023 CBC/C OMPLE TE BLD COUNT W/DIF F platelets 192 x10'3 /uL 150-[address] [facility] (Lab) [address] [place], [address], 11/21/2023 13:31:14 11/21/19 24 11/21/2023 CBC/C OMPLE TE BLD COUNT W/DIF F mean platelet volume 10.9 fL 9.0-[address] [facility] (Lab) [address] [place], [address], 11/21/2023 13:31:14 11/21/19 24 11/21/2023 CBC/C OMPLE TE BLD COUNT W/DIF F neutrophils 57.1 % 39.0-7 2.0 Not Available [facility] (Lab) [address] [place], [address], 11/21/2023 13:31:14 11/21/19 24 11/21/2023 CBC/C OMPLE TE BLD COUNT W/DIF F lymphocytes 29.9 % 16.0-[address] [facility] (Lab) [address] [place], [address], 11/21/2023 13:31:14 11/21/1911/21/2023 CBC/C OMPLE TE BLD COUNT W/DIF F monocytes 10.2 % 5.0-[address] [facility] (Lab) [address] [place], [address], 11/21/2023 13:31:14 11/21/19 24 11/21/2023 CBC/C OMPLE TE BLD COUNT W/DIF F eosinophils 1.8 % 1.0-7. [address] [facility] (Lab) [address] [place], [address], 11/21/2023 13:31:14 11/21/1911/21/2023 CBC/C OMPLE TE BLD COUNT W/DIF F basophils 0.4 % 0.0-2. [address] [facility] (Lab) [address] [place], [address], 11/21/2023 13:31:14 11/21/1911/21/2023 CBC/C OMPLE TE BLD COUNT W/DIF F immature granulocytes 0.6 % 0.00-0 .[address] [facility] (Lab) [address] [place], [address], 11/21/2023 13:31:14 11/21/1911/21/2023 CBC/C OMPLE TE BLD COUNT W/DIF F neutrophils, absolute count 2.86 x10'3 /uL 1.5-8. [address] [facility] (Lab) [address] [place], [address], 11/21/2023 13:31:14 11/21/19 24 11/21/2023 CBC/C OMPLE TE BLD COUNT W/DIF F lymphocytes, absolute count 1.50 x10'3 /uL 1.07-[address] [facility] (Lab) [address] [place], [address], 11/21/2023 13:31:14 11/21/19 24 11/21/2023 CBC/C OMPLE TE BLD COUNT W/DIF F monocytes, absolute count 0.51 x10'3 /uL 0.29-[address] [facility] (Lab) [address] [place], [address], 11/21/2023 13:31:14 11/21/19 24 11/21/2023 CBC/C OMPLE TE BLD COUNT W/DIF F eosinophils, absolute count 0.09 x10'3 /uL 0.02-[address] [facility] (Lab) [address] [place], [address], 11/21/2023 13:31:14 11/21/19 24 11/21/2023 CBC/C OMPLE TE BLD COUNT W/DIF F basophils, absolute count 0.02 x10'3 /uL 0.01-[address] [facility] (Lab) [address] [place], [address], 11/21/2023 13:31:14 11/21/1911/21/2023 CBC/C OMPLE TE BLD COUNT W/DIF F immature granulocytes ,absolute 0.03 x10'3 /uL 0.00-[address] [facility] (Lab) [address] [place], [address], 11/21/2023 13:31:14 11/21/1911/21/2023 CBC/C OMPLE TE BLD COUNT W/DIF F nucleated red blood cells 0.0 % -0 Not Available [facility] (Lab) [address] [place], [address], 11/21/2023 13:31:14 11/21/19 24 11/21/2023 CBC/C OMPLE TE BLD COUNT W/DIF F NRBC# 0.00 x10'3 /uL Not Available [facility] (Lab) [address] [place], [address], 11/21/2023 13:31:14 11/21/1911/21/2023 LIPID PANEL cholesterol 226 mg/dL 140-19 9 high NIH HARI NSUS RECOM MENDA TION FOR TOMA STERO L: ADULT CHILD LOW RISK: <200 <170 BORDE RLINE : <200- 239 ----- HIGH RISK: >240 >[address] [facility] (Lab) [address] [place], [address], 11/21/2023 17:17:22 11/21/19 24 11/21/2023 LIPID PANEL triglyceride s 153 mg/dL 0-150 high NIH HARI NSUS REPOR T RECOM MENDA TION FOR TRIGL YCERI AUR[place]A: ADULT CHILD LOW RISK: <150 ----- BODER LINE: 150-1 99 ----- HIGH RISK: >200 ----- Not [address] [facility] (Lab) [address] [place], [address], 11/21/2023 17:17:22 11/21/19 24 11/21/2023 LIPID PANEL HDL cholesterol 63 mg/dL 40- Not Available [facility] (Lab) [address] [place], [address], 11/21/2023 17:17:22 11/21/19 24 11/21/2023 LIPID PANEL [...] WILL NOT BE REPOR SPENSER. Not Available [facility] (Lab) [address] [place], [address], 11/21/2023 17:17:22 11/21/1911/21/2023 COMPR EHENS CARLEE METAB OLIC PANEL sodium 136 mmol/ L 137-[address] [facility] (Lab) [address] [place], [address], 11/21/2023 17:17:27 11/21/19 24 11/21/2023 COMPR EHENS CARLEE METAB OLIC PANEL potassium 4.2 mmol/ L 3.5-[address]. [address] [facility] (Lab) [address] [place], [address], 11/21/2023 17:17:27 11/21/19 24 11/21/2023 COMPR EHENS CARLEE METAB OLIC PANEL chloride 105 mmol/ L 98-[address] [facility] (Lab) [address] [facility] [place], [address], 11/21/2023 17:17:27 11/21/19 24 11/21/2023 COMPR EHENS CARLEE METAB OLIC PANEL carbon dioxide 24 mmol/ L 22-[address] [facility] (Lab) [address] [place], [address], 11/21/2023 17:17:27 11/21/19 24 11/21/2023 COMPR EHENS CARLEE METAB OLIC PANEL anion gap 11.2 mmol/ L 14-[address] [facility] (Lab) [address] [place], [address], 11/21/2023 17:17:27 11/21/19 24 11/21/2023 COMPR EHENS CARLEE METAB OLIC PANEL glucose 118 mg/dL 70-[address] [facility] (Lab) [address] [place], [address], 11/21/2023 17:17:27 11/21/19 24 11/21/2023 COMPR EHENS CARLEE METAB OLIC PANEL BUN 14 mg/dL 8-[address] [facility] (Lab) [address] [place], [address], 11/21/2023 17:17:27 11/21/19 24 11/21/2023 COMPR EHENS CARLEE METAB OLIC PANEL creatinine 0.30 mg/dL 0.66-1 [address] [facility] (Lab) [address] [place], [address], 11/21/2023 17:17:27 11/21/19 24 11/21/2023 COMPR EHENS CARLEE METAB OLIC PANEL GFR >60 Refer ence Range : [place] ge GFR Healt hy Adult : >60 [...] calcu lator is avail able on the [facility] websi te: https :[email or web address] [email or web address] [email or web address]/tony garcia s/kdo qi/gf r_cal culat or Not Available [facility] (Lab) [address] [place], [address], 11/21/2023 17:17:27 11/21/19 24 11/21/2023 COMPR EHENS CARLEE METAB OLIC PANEL alkaline phosphatase 88 U/L 38-126 Not Available [facility] (Lab) [address] [place], [address], 11/21/2023 17:17:27 11/21/19 24 11/21/2023 COMPR EHENS CARLEE METAB OLIC PANEL alanine aminotransfe rase 37 U/L 0-50 Not Available [facility] (Lab) [address] [place], [address], 11/21/2023 17:17:27 11/21/19 24 11/21/2023 COMPR EHENS CARLEE METAB OLIC PANEL aspartate aminotransfe rase 31 U/L 15-46 Not Available [facility] (Lab) [address] [place], [address], 11/21/2023 17:17:27 11/21/19 24 11/21/2023 COMPR EHENS CARLEE METAB OLIC PANEL bilirubin, total 0.90 mg/dL 0.20-[address] [facility] (Lab) [address] [place], [address], 11/21/2023 17:17:27 11/21/19 24 11/21/2023 COMPR EHENS CARLEE METAB OLIC PANEL calcium 9.7 mg/dL 8.4-[address] [facility] (Lab) [address] [place], [address], 11/21/2023 17:17:27 11/21/19 24 11/21/2023 COMPR EHENS CARLEE METAB OLIC PANEL total protein 7.0 g/dL 6.3-8. [address] [facility] (Lab) [address] [place], [address], 11/21/2023 17:17:27 11/21/1911/21/2023 COMPR EHENS CARLEE METAB OLIC PANEL albumin 4.4 g/dL 3.4-5. [address] [facility] (Lab) [address] [place], [address], 11/21/2023 17:17:27 11/21/19 24 11/21/2023 COMPR EHENS CARLEE METAB OLIC PANEL globulin 2.6 g/dL 2.6-4. [address] [facility] (Lab) [address] [place], [address], 11/21/2023 17:17:27 11/21/19 24 11/21/2023 COMPR EHENS CARLEE METAB OLIC PANEL A/G ratio 1.7 ratio 1.0-2. [address] [facility] (Lab) [address] [place], [address], 11/21/2023 17:17:27 11/21/19 24 11/21/2023 VITAM IN D 25-HY DROXY [id number] 46.1 NG/mL 30-100 Vitam in D Statu s: Defic ient: <20 ng/mL Insuf ficie nt: 20-29 ng/mL Suffi cient : 30-10 0 ng/mL Not Available [facility] (Lab) [address] [place], [address], 11/21/2023 17:59:00 11/21/19 24 11/21/2023 PSA SCREE N PSA medicare screen 1.22 NG/mL 0.00-[address] [facility] (Lab) [address] [place], [address], 11/21/2023 18:01:39 12/10/19 24 12/10/2023 CBC/C OMPLE TE BLD COUNT W/DIF F white blood cells 5.7 x10'3 /uL 4.2-[address] [facility] (Lab) [address] [place], [address], 12/10/2023 18:08:02 12/10/19 24 12/10/2023 CBC/C OMPLE TE BLD COUNT W/DIF F red blood cells 3.95 x10'6 /uL 4.10-5 [address] [facility] (Lab) [address] [place], [address], 12/10/2023 18:08:02 12/10/19 24 12/10/2023 CBC/C OMPLE TE BLD COUNT W/DIF F hemoglobin 13.1 g/dL 13.2-1 7[address] [facility] (Lab) [address] [place], [address], 12/10/2023 18:08:02 12/10/19 24 12/10/2023 CBC/C OMPLE TE BLD COUNT W/DIF F hematocrit 37.0 % 39.3-5 0[address] [facility] (Lab) [address] [place], [address], 12/10/2023 18:08:02 12/10/19 24 12/10/2023 CBC/C OMPLE TE BLD COUNT W/DIF F mean red cell volume 93.7 fL 80.0-[address] [facility] (Lab) [address] [place], [address], 12/10/2023 18:08:02 12/10/19 24 12/10/2023 CBC/C OMPLE TE BLD COUNT W/DIF F mean red cell hemoglobin 33.2 pg 27.0-3 3[address] [facility] (Lab) [address] [place], [address], 12/10/2023 18:08:02 12/10/19 24 12/10/2023 CBC/C OMPLE TE BLD COUNT W/DIF F mean RBC HGB concentratio n 35.4 g/dL 31.0-[address] [facility] (Lab) [address] [place], [address], 12/10/2023 18:08:02 12/10/19 24 12/10/2023 CBC/C OMPLE TE BLD COUNT W/DIF F red cell distribution width 12.1 % 11.8-[address] [facility] (Lab) [address] [place], [address], 12/10/2023 18:08:02 12/10/19 24 12/10/2023 CBC/C OMPLE TE BLD COUNT W/DIF F platelets 220 x10'3 /uL 150-[address] [facility] (Lab) [address] [place], [address], 12/10/2023 18:08:02 12/10/19 24 12/10/2023 CBC/C OMPLE TE BLD COUNT W/DIF F mean platelet volume 10.4 fL 9.0-[address] [facility] (Lab) [address] [place], [address], 12/10/2023 18:08:02 12/10/19 24 12/10/2023 CBC/C OMPLE TE BLD COUNT W/DIF F neutrophils 58.6 % 39.0-[address] [facility] (Lab) [address] [place], [address], 12/10/2023 18:08:02 12/10/19 24 12/10/2023 CBC/C OMPLE TE BLD COUNT W/DIF F lymphocytes 28.1 % 16.0-[address] [facility] (Lab) [address] [place], [address], 12/10/2023 18:08:02 12/10/19 24 12/10/2023 CBC/C OMPLE TE BLD COUNT W/DIF F monocytes 9.6 % 5.0-[address] [facility] (Lab) [address] [place], [address], 12/10/2023 18:08:02 12/10/19 24 12/10/2023 CBC/C OMPLE TE BLD COUNT W/DIF F eosinophils 2.5 % 1.0-7. [address] [facility] (Lab) [address] [place], [address], 12/10/2023 18:08:02 12/10/19 24 12/10/2023 CBC/C OMPLE TE BLD COUNT W/DIF F basophils 0.7 % 0.0-2. [address] [facility] (Lab) [address] [place], [address], 12/10/2023 18:08:02 12/10/19 24 12/10/2023 CBC/C OMPLE TE BLD COUNT W/DIF F immature granulocytes 0.5 % 0.00-[address] [facility] (Lab) [address] [place], [address], 12/10/2023 18:08:02 12/10/19 24 12/10/2023 CBC/C OMPLE TE BLD COUNT W/DIF F neutrophils, absolute count 3.34 x10'3 /uL 1.5-8. [address] [facility] (Lab) [address] [place], [address], 12/10/2023 18:08:02 12/10/19 24 12/10/2023 CBC/C OMPLE TE BLD COUNT W/DIF F lymphocytes, absolute count 1.60 x10'3 /uL 1.07-[address] [facility] (Lab) [address] [place], [address], 12/10/2023 18:08:02 12/10/19 24 12/10/2023 CBC/C OMPLE TE BLD COUNT W/DIF F monocytes, absolute count 0.55 x10'3 /uL 0.29-[address] [facility] (Lab) [address] [place], [address], 12/10/2023 18:08:02 12/10/19 24 12/10/2023 CBC/C OMPLE TE BLD COUNT W/DIF F eosinophils, absolute count 0.14 x10'3 /uL 0.02-[address] [facility] (Lab) [address] [place], [address], 12/10/2023 18:08:02 12/10/19 24 12/10/2023 CBC/C OMPLE TE BLD COUNT W/DIF F basophils, absolute count 0.04 x10'3 /uL 0.01-[address] [facility] (Lab) [address] [place], [address], 12/10/2023 18:08:02 12/10/19 24 12/10/2023 CBC/C OMPLE TE BLD COUNT W/DIF F immature granulocytes ,absolute 0.03 x10'3 /uL 0.00-[address] [facility] (Lab) [address] [place], [address], 12/10/2023 18:08:02 12/10/19 24 12/10/2023 CBC/C OMPLE TE BLD COUNT W/DIF F nucleated red blood cells 0.0 % -0 Not Available [facility] (Lab) [address] [place], [address], 12/10/2023 18:08:02 12/10/19 24 12/10/2023 CBC/C OMPLE TE BLD COUNT W/DIF F NRBC# 0.00 x10'3 /uL Not Available [facility] (Lab) [address] [place], [address], 12/10/2023 18:08:02 12/10/19 24 12/10/2023 COMPR EHENS CARLEE METAB OLIC PANEL sodium 133 mmol/ L 137-[address] [facility] (Lab) [address] [place], [address], 12/10/2023 18:26:21 12/10/19 24 12/10/2023 COMPR EHENS CARLEE METAB OLIC PANEL potassium 3.7 mmol/ L 3.5-5. [address] [facility] (Lab) [address] [place], [address], 12/10/2023 18:26:21 12/10/19 24 12/10/2023 COMPR EHENS CARLEE METAB OLIC PANEL chloride 101 mmol/ L 98-107 Not Available [facility] (Lab) [address] [place], [address], 12/10/2023 18:26:21 12/10/19 24 12/10/2023 COMPR EHENS CARLEE METAB OLIC PANEL carbon dioxide 22 mmol/ L 22-30 Not Available [facility] (Lab) [address] [place], [address], 12/10/2023 18:26:21 12/10/19 24 12/10/2023 COMPR EHENS CARLEE METAB OLIC PANEL anion gap 13.7 mmol/ L 14-[address] [facility] (Lab) [address] [place], [address], 12/10/2023 18:26:21 12/10/19 24 12/10/2023 COMPR EHENS CARLEE METAB OLIC PANEL glucose 118 mg/dL 70-[address] [facility] (Lab) [address] [place], [address], 12/10/2023 18:26:21 12/10/19 24 12/10/2023 COMPR EHENS CARLEE METAB OLIC PANEL BUN 10 mg/dL 8-[address] [facility] (Lab) [address] [place], [address], 12/10/2023 18:26:21 12/10/19 24 12/10/2023 COMPR EHENS CARLEE METAB OLIC PANEL creatinine 0.28 mg/dL 0.66-1 [address] [facility] (Lab) [address] [place], [address], 12/10/2023 18:26:21 12/10/19 24 12/10/2023 COMPR EHENS CARLEE METAB OLIC PANEL GFR >60 Refer ence Range : [place] GFR Healt hy Adult : >60 [...] calcu lator is avail able on the [facility] websi te: https :[email or web address] w.kid [email or web address] rg/pr ofess ional s/kdo qi/gf r_cal culat or Not Available [facility] (Lab) [address] [place], [address], 12/10/2023 18:26:21 12/10/19 24 12/10/2023 COMPR EHENS CARLEE METAB OLIC PANEL alkaline phosphatase 78 U/L 38-126 Not Available [facility] (Lab) [address] [place], [address], 12/10/2023 18:26:21 12/10/19 24 12/10/2023 COMPR EHENS CARLEE METAB OLIC PANEL alanine aminotransfe rase 42 U/L 0-50 Not Available [facility] (Lab) [address] [place], [address], 12/10/2023 18:26:21 12/10/19 24 12/10/2023 COMPR EHENS CARLEE METAB OLIC PANEL aspartate aminotransfe rase 33 U/L 15-46 Not Available [facility] (Lab) [address] [place], [address], 12/10/2023 18:26:21 12/10/19 24 12/10/2023 COMPR EHENS CARLEE METAB OLIC PANEL bilirubin, total 0.60 mg/dL 0.20-[address] [facility] (Lab) [address] [place], [address], 12/10/2023 18:26:21 12/10/19 24 12/10/2023 COMPR EHENS CARLEE METAB OLIC PANEL calcium 9.2 mg/dL 8.4-[address] [facility] (Lab) [address] [place], [address], 12/10/2023 18:26:21 12/10/19 24 12/10/2023 COMPR EHENS CARLEE METAB OLIC PANEL total protein 7.2 g/dL 6.3-8. [address] [facility] (Lab) [address] [place], [address], 12/10/2023 18:26:21 12/10/19 24 12/10/2023 COMPR EHENS CARLEE METAB OLIC PANEL albumin 4.4 g/dL 3.4-5. [address] [facility] (Lab) [address] [place], [address], 12/10/2023 18:26:21 12/10/19 24 12/10/2023 COMPR EHENS CARLEE METAB OLIC PANEL globulin 2.8 g/dL 2.6-4. [address] [facility] (Lab) [address] [place], [address], 12/10/2023 18:26:21 12/10/19 24 12/10/2023 COMPR EHENS CARLEE METAB OLIC PANEL A/G ratio 1.6 ratio 1.0-2. [address] [facility] (Lab) [address] [facility] [place], [address], 12/10/2023 18:26:21 Result Notes None recorded. Problems Name Problem SNOMED Code Status Onset Date Resolution Date Notes Provider Name and Address Organization Details Recorded Time Renewal of prescripti on Active 2021 Not Available [employer] 3 06:35:24 Impacted cerumen of bilateral ears 7505350207595 108 Active 2021 Not Available [employer] 3 06:35:24 Impacted cerumen in left ear 0356891465604 101 Active 2021 Not Available [employer] 3 06:35:24 History of lower extremity skin ulcer 4296933746493 03 Active 2019 Not Available [employer] 3 06:35:24 Recurrent urinary tract infection 981421040 Active 2021 Not Available [employer] 3 06:35:24 Quadripleg ia with quadripare sis 2654016200673 0 Active 2018 Not Available [employer] 3 06:35:24 Unable to cut own toenails 838381210 Active 2022 Not Available [employer] 3 06:35:24 Blood in urine 67455129 Active Not Available [employer] 3 06:35:24 Dyslipidem ia 277001182 Active 2017 Not Available [employer] 3 06:35:24 Onychomyco sis 425953299 Active 2019 Not Available [facility] 3 06:35:24 Anxiety 53293918 Active 2016 Not Available [facility] 3 06:35:24 Hyperlipid emia 42279432 Active 2021 Not Available [employer] 3 06:35:24 Urinary tract infectious disease 03289048 Active 2021 Not Available [facility] 3 06:35:24 Spinal cord injury 98673846 Active Not Available [employer] 3 06:35:25 Dystrophia unguium 23545669 Active 2022 Not Available [facility] 3 06:35:25 Muscle weakness 64358223 Active 2022 Not Available [facility] 3 06:35:24 Blister of foot with infection 50374460 Active 2023 Jordi Quiles DPM [address], [address], [place], [address] , [employer] 4 18:10:33 Cellulitis of left foot 1733094572975 9101 Active 2023 Jordi Quiles DPM [address], [address], [place], [address] , [employer] 4 18:14:29 Onychomyco sis of toenails 100183451 Active 2023 Jordi Quiles DPM [address], [address], [place], [address] , [employer] 4 17:02:44 Notes:Some problems listed i n Document: #[id number] could not be added to this patient's chart. Please review this document and add these problems to the patient's chart manually as needed. Problem Notes None recorded. Procedures Surgical History Date Name Laterality Status Provider Name and Address Organization Details Recorded Time 03/26/20 24 Toenail avulsion completed Jordi Quiles DPM [address], [address], [place], [address], [employer] 03/26/2024 16:46:31 12/19/19 24 Nail Debridement completed Jordi Quiles DPM [address], [address], [place], [address], [employer] 12/19/2023 17:24:42 12/19/19 24 Wound Care-Podiatry completed Traci Celeste RN [employer] 12/19/2023 16:58:34 12/12/19 24 Wound Care-Podiatry completed Helena Lewis RN [employer] 12/12/2023 14:19:30 12/03/19 24 Wound Care-Podiatry completed Jordi Quiles DPM [address], [facility] [address], [place], [address], [facility] [employer] [facility] 12/04/2023 12:26:02 01/30/20 23 Nail Debridement completed Jordi Quiles DPM [address], [facility] [address], [place], [address], [facility] [employer] [facility] 01/31/2023 14:08:20 06/26/20 17 Bladder completed Not Available [facility] 3 02:44:54 repair of spinal cord completed Not Available [facility] 09/27/2022 02:44:54 Imaging Results None recorded. Procedure Notes None recorded. Medical Equipment None Reported. Allergies Allergen ID Allergen Name Allergen Category Reaction Reaction Severity Criticality Documentation Date Start Date Code Code System Note Provider Name and Address Organization Details Recorded Time 4558 ampicilli n medicatio n hives moderate Not available 09/27/20222018 733 RxNorm Not Available [facility] 3 02:59:02 Medications Name Sig Start [...] Not Available Not Available No t Available [place] 10 mg-325 mg tablet 1-2 tablets every [...] Updated DateTime 05/30/2023 175.26 cm 30.3 kg/m2 17364.44 g 97.8 [degF] Henny Sher RN [place] - [facility] [employer] 05/30/2023 14:02:09 Date Recorded Body height Body mass index (BMI) Body weight Heart rate Respiratory rate Body temperature Oxygen saturation Oxygen saturation in Arterial blood by Pulse oximetry Systolic blood pressure Diastolic blood pressure Provider Name and Address Organization Details Last Updated DateTime 4 175.26 cm 30.3 kg/m2 15517.4 4 g 76 /min 16 /min 97.8 [degF] 97 % 97 % 140 mm[Hg] 80 mm[Hg] Allison Motta [facility] [employer] [facility] 4 17:30:42 Date Recorded Body height Body temperature Oxygen saturation Oxygen saturation in Arterial blood by Pulse oximetry Respiratory rate Heart rate Systolic blood pressure Diastolic blood pressure Provider Name and Address Organization Details Last Updated DateTime 4 175.26 cm 98.2 [degF] 97 % 97 % 20 /min 75 /min 85 mm[Hg] 51 mm[Hg] Helena Lewis RN [facility] [employer] [facility] 4 14:17:13 Date Recorded Body height Body temperature Respiratory rate Heart rate Oxygen saturation Oxygen saturation in Arterial blood by Pulse oximetry Systolic blood pressure Diastolic blood pressure Provider Name and Address Organization Details Last Updated DateTime 4 175.26 cm 97.7 [degF] 20 /min 70 /min 95 % 95 % 92 mm[Hg] 56 mm[Hg] Traci Celeste RN [facility] [employer] [facility] 4 16:40:03 Date Recorded Body height Body mass index (BMI) Body weight Heart rate Respiratory rate Oxygen saturation Oxygen saturation in Arterial blood by Pulse oximetry Body temperature Systolic blood pressure Diastolic blood pressure Provider Name and Address Organization Details Last Updated DateTime 4 175.26 cm 30.3 kg/m2 51076.4 4 g 70 /min 16 /min 95 % 95 % 97.7 [degF] 120 mm[Hg] 70 mm[Hg] Allison Hardyhaw [facility] [employer] [facility] 4 16:01:48 Social History Question Answer Notes LastModified by Organizat ion Details LastModified Time Tobacco Smoking Status Never Smoker Not Available [employer] 09/27/2022 02:35:48 Do You Have An Advance Directive? No [id number] Information not available 09/27/2022 What Is Your Level Of Caffeine Consumption? None MIGRATION.[id number] 026 Information not available 09/27/2022 How Much Tobacco Do You Chew? None MIGRATION.1428510 026 Information not available 09/27/2022 In The 14 Days Before Symptom Onset, Have You Had Close Contact With A Laboratory-confirm ed COVID-19 While That Case Was Ill? No MIGRATION.[id number] 026 Information not available 09/27/2022 In The 14 Days Before Symptom Onset, Have You Had Close Contact With A Person Who Is Under Investigation For COVID-19 While That Person Was Ill? No MIGRATION.[id number] 026 Information not available 09/27/2022 What Type Of Diet Are You Following? REGULAR MIGRATION.0406030 026 Information not available 09/27/2022 Which Illicit Or Recreational Drugs Have You Used? None MIGRATION.6757344 026 Information not available 09/27/2022 What Is The Highest Grade Or Level Of School You Have Completed Or The Highest Degree You Have Received? [id number] MIGRATION.6370873 026 Information not available 09/27/2022 Have There Been Any Changes To Your Family Or Social Situation? No MIGRATION.7281973 026 Information not available 09/27/2022 What Is The Fluoride Status Of Your Home? Unknown MIGRATION.1006351 026 Information not available 09/27/2022 Are There Any Guns Present In Your Home? No MIGRATION.7271546 026 Information not available 09/27/2022 Do You Use Insect Repellent Routinely? No MIGRATION.4039552 026 Information not available 09/27/2022 Where Do You Live? Condo MIGRATION .[id number] 026 Information not available 09/27/2022 Do You Have A Medical Power Of Production Wood Craftsman? No MIGRATION.1446739 026 Information not available 09/27/2022 What Was The Date Of Your Most Recent Tobacco Screening? 05/15/2023 [email or web address] Information not available 05/15/2023 Have You Ever Been Counseled For Unhealthy Alcohol Use? No MIGRATION.4830488 026 Information not available 09/27/2022 Do You Have Any Pets? No MIGRATION.8910175 026 Information not available 09/27/2022 What Is Your Relationship Status? Single MIGRATION.3245865 026 Information not available 09/27/2022 Do You Use Your Seat Belt Or Car Seat Routinely? Yes MIGRATION.2547045 026 Information not available 09/27/2022 Do You Have Smoke And Carbon Monoxide Detectors In Your Home? Yes MIGRATION.4386006 026 Information not available 09/27/2022 Are You Passively Exposed To Smoke? No MIGRATION.7118383 026 Information not available 09/27/2022 Are There Any Smokers In Your House? No MIGRATION.9529283 026 Information not available 09/27/2022 How Much Tobacco Do You Smoke? No MIGRATION.2942848 026 Information not available 09/27/2022 What Types Of Sporting Activities Do You Participate In? None MIGRATION.1524226 026 Information not available 09/27/2022 Do You Use Sunscreen Routinely? No MIGRATION.0928529 026 Information not available 09/27/2022 Has Tobacco Cessation Counseling Been Provided? No MIGRATION.7676407 026 Information not available 09/27/2022 How Many Years Have You Smoked Tobacco? 0 MIGRATION.4534096 026 Information not available 09/27/2022 Have You Recently Traveled Abroad? No MIGRATION.1362689 026 Information not available 09/27/2022 Do You Have Any Dietary Restrictions? No MIGRATION.0086076 026 Information not available 09/27/2022 Sex: Male Functional Status Question Answer Note LastModified by [employer] Details LastModified Time Do you use any illicit or recreational drugs? No MIGRATION.270735 6110 Information not available 09/27/2022 Do you or have you ever used any other forms of tobacco or nicotine? No MIGRATION.110813 0359 Information not available 09/27/2022 What is your level of alcohol consumption? Occasional MIGRATION.052807 9221 Information not available 09/27/2022 Do you or have you ever used smokeless tobacco? Never used smokeless tobacco MIGRATION.848248 9289 Information not available 09/27/2022 Are you currently employed? No [email or web address] Information not available 10/17/2022 What is your occupation? disabled MIGRATION.767813 9640 Information not available 09/27/2022 Do you or have you ever used e-cigarettes or vape? Never used electronic cigarettes MIGRATION.935507 0333 Information not available 09/27/2022 What is your exercise level? None MIGRATION.263202 3303 Information not available 09/27/2022 Mental Status Question Answer Note LastModified by [employer] Details LastModified Time Do you feel stressed (tense, restless, nervous, or anxious, or unable to sleep at night)? [id number] MIGRATION.[id number] 6 Information not available 09/27/2022 Family History Relationship Description Onset Age of this Age Resolved Age Notes LastModified by Organization Details LastModified Time Father No current problems or disability MIGRATION.[id number] Not available 09/27/2022 02:44:58 Mother Anxiety MIGRATION.847 [id number] Not available 09/27/2022 02:44:58 Mother Diverticulit is MIGRATION.162 [id number] Not available 09/27/2022 02:44:58 Notes:NO ENT Medical History Condition Response BLINDNESS N RHEUMATIC FEVER N KIDNEY STONES N CARPAL TUNNEL SYNDROME N OTHER # 1 Y LUNG DISEASE/DISORDER N HISTORY OF DRUG ABUSE N RADIATION / CHEMOTHERAPY N COPD N Other # 2 N BLOOD DISEASES N SURGERY N EAR OR HEARING PROBLEMS Y PAST SPINAL SURGERY N SCHIZOPHRENIA N BOWEL PROBLEMS N DEPRESSION (INCLUDING POST ) Y STROKE/TIA N LYMPHEDEMA N BENIGN PROSTATIC HYPERPLASIA N [place] N OBESITY N GERD/NAUSEA N ANEURYSM N CORONARY ARTERY DISEASE (CAD) N USE OF BLOOD THINNERS N EMPHYSEMA N GASTROINTESTINAL DISORDER N PERIPHERAL VASCULAR DISEASE N STOMACH ULCERS N GASTROINTESTINAL BLEEDING N BLOOD CLOTS N PAST HISTORY OF VEHICULAR ACCIDENT N ERECTILE DYSFUNCTION N GI PROBLEMS N CHF N NEUROPATHY N AIDS/HIV N HYPERTENSION N BLOOD TRANSFUSION N ANEMIA/BLOOD DISORDER N BIPOLAR DISORDER N BRONCHITIS N OSTEOARTHRITIS N TUBERCULOSIS N GLAUCOMA N FOOT PROBLEM N HEART VALVE DISORDERS N ALLERGIES/HAYFEVER N INFECTIOUS DISEASE N PROSTATE N HEART ARRHYTHMIA N INSOMNIA N PAST INTERVENTIONAL PAIN MANAGEMENT HIST ORY N RHEUMATOID ARTHRITIS N PAST MEDICATION HISTORY N HIGH CHOLESTEROL / HYPERLIPIDEMIA Y HYPERTHYROIDISM N EYE PROBLEMS N NEUROLOGICAL PROBLEMS N EDEMA N HYPOTHYROIDISM N CONSTIPATION N CAROTID BLOCKAGE N BACK / NECK PROBLEMS Y HAVE YOU BEEN HOSPITALIZED OR SEEN IN [facility] IN THE PAST YEAR ? N [...] mcg/0.3 mL dose 05/08/2021 completed Not Available [facility] 3 06:35:25 COVID-19 vaccine, vector-nr, rS-Ad26, PF, 0.5 mL 10/12/2020 completed Not Available [facility] 3 06:35:25 Influenza, split virus, quadrivalent, PF 07/18/2022 completed Not Available [facility] 3 06:35:25 Influenza, split virus, quadrivalent, PF 05/24/2021 completed Not Available [facility] 3 06:35:25 Influenza, split virus, quadrivalent, PF 07/15/2019 completed Not Available [facility] 3 06:35:25 Influenza, split virus, quadrivalent, PF 06/15/2020 completed Not Available [facility] 3 06:35:25 Influenza, split virus, quadrivalent, PF 05/23/2018 completed Not Available [facility] 3 06:35:25 Past Encounters Encounter ID Performer Location Encounter Start Date Encounter Closed Date Diagnosis/Indication Diagnosis SNOMED-CT Code Diagnosis ICD10 Code Diagnosis Note [id number] [facility] [place] [address] [place] [address] 10/11/2020 00:00:00 10/14/2020 14:40:02 [id number] Anup Jones MD [facility] [place] [address] [facility] [place] [address] 11/16/2020 00:00:00 11/16/2020 22:02:51 [id number] Anup Jones MD [facility] [place] [address] [facility] [place] [address] 02/15/2021 00:00:00 02/15/2021 21:57:43 [id number] [facility] [place] [address] [place] [address] 03/31/2021 00:00:00 04/03/2021 14:11:56 [id number] [facility] [place] [address] [place] [address] 04/13/2021 00:00:00 04/13/2021 14:19:36 [id number] Anup Jones MD [facility] Internal Med [place] [address] [place] [address] [place] [address] 05/24/2021 00:00:00 05/24/2021 22:35:57 [id number] [facility] [place] [address] [place] [address] 08/25/2021 00:00:00 08/25/2021 14:50:13 [id number] Anup Jones MD [facility] Internal Med [place] [address] [place] [address] [place] [address] 09/20/2021 00:00:00 09/20/2021 22:21:49 [id number] S_Histor [facility] [place] [address] [place] [address] 12/01/2021 00:00:00 12/03/2021 12:37:21 [id number] Anup Jones MD [facility] Internal [place] [address] [place] [address] [place] [address] 12/27/2021 00:00:00 01/14/2022 15:57:43 [id number] Anup Jones MD [facility] Internal Med [place] [address] [place] [address] [place] [address] 01/26/2022 00:00:00 02/05/2022 15:35:01 [id number] Jon Feliciano MD [facility] ENT [place] [address] [place] [address] 03/16/2022 00:00:00 03/16/2022 11:32:29 [id number] Anup Jnoes MD [facility] Internal Med [place] [address] [place] [address] [place] [address] 04/25/2022 00:00:00 05/28/2022 11:22:16 [id number] [facility] ic_Gateway [facility] Podiatry [place] [address] [facility] [address] [place] [address] 05/01/2022 00:00:00 05/01/2022 14:02:50 [id number] Anup Jones MD [facility] Internal Med [facility] [address] [facility] [place] [address] 07/18/2022 00:00:00 07/21/2022 14:08:11 [id number] Jordi Quiles DPM [facility] Podiat[facility] [place] [address] [facility] [address] [place] [address] 08/21/2022 00:00:00 08/26/2022 09:20:57 [id number] Anup Jones MD [facility] Internal [address] 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 Nails were debrided and greater than 50% length and thickness where needed. Unable to cut own toenails 501802167 Z74.1 Quadripleg ia with quadriparesis 2397265270 9100 G82.50 [id number] Anup Jones MD [facility] Internal Med [facility] [address] [place] [address] 02/13/2023 14:02:23 02/13/2023 14:32:11 Muscle weakness 83571092 M62.81 Anxiety 77590509 F41.9 Dyslipidemia 635553983 E 78.5 [id number] Anup Jones MD [facility] Internal Med [place] [address] [facility] [place] [address] 05/15/2023 13:49:56 05/15/2023 14:39:01 Anxiety 46936345 F41.9 Dyslipidemia 863936275 E 78.5 [id number] Jon Feliciano MD [facility] E[place] [address] [place] [address] 05/30/2023 13:52:48 05/30/2023 14:11:55 Impacted cerumen in left ear 1923132994 467314 H61.22 [id number] Jordi Quiles DPM [facility] [place] [address] [place] [address] 12/03/2023 17:20:40 12/04/2023 13:13:26 Blister of foot with infection 57701105 S90.822A incision and drainage of the heel 6x6cm- x 1 to dermisoffl oading at all timesRx heel protector- hard scriptdail y dressings Betadine wet-to-dry follow-up in 1 week in wound care Cellulitis of left foot [id number] 1461319 L03.116 cont abx therapy - cephalexin , finishwill continue monitor if worsens seek medical attention immediatel y [id number] [facility] [address] [place] [address] 12/12/2023 14:04:07 12/12/2023 15:29:29 Blister of foot with infection 07424582 S90.822A healingoff loading at all timesRx heel protector- hard scriptdail y dressings Betadine wet-to-dry follow-up in 1 week in wound care Cellulitis of left foot 8900215010 [id number] L03.116 resolved [id number] [facility] [address] [place] [address] 12/19/2023 16:33:36 12/19/2023 18:50:23 Blister of foot with infection 43708945 S90.822A healed Onychomyco sis of toenails 006902574 B35.1 right 5th toenail Dystrophia unguium 12257 009 L60.3 Nails 1 through 10 were debrided with sharp mechanical debridemen t without incident. Nails were debrided and greater than 50% length and thickness where needed. Unable to cut own toenails 375785945 Z74.1 Secondary to spinal cord injury- quadripleg ic with quadripare sis [id number] Jordi Quiles DPM [facility] Podiatry [place] [address] [facility] [address] [place] [address] 03/26/2024 15:51:33 03/27/2024 11:34:31 Dystrophia unguium 04263110 L60.3 left great toenailtot al nail avulsion- [...] [place] Member ID Guarantor Name 05/30/[address] [facility] (MEDICARE REPLACEMENT/A DVANTAGE - HMO) [id number] David James [id number] David James 12/03/[address] [facility] (MEDICARE REPLACEMENT/A DVANTAGE - HMO) [id number] David James [id number] David James 12/12/[address] [facility] (MEDICARE REPLACEMENT/A DVANTAGE - HMO) [id number] David James [id number] David James 12/19/[address] [facility] (MEDICARE REPLACEMENT/A DVANTAGE - HMO) [id number] David James [id number] David James 03/26/[address] [facility] (MEDICARE REPLACEMENT/A DVANTAGE - HMO) [id number] David James [id number] David Davenportmohamudtatyana Notes Date Note Type Note Provider Name and Address Organization Details Recorded Time 05/30/2023 text/html cerumen impaction Jon Feliciano MD [address], [facility] [address], [place], [address], [employer] 05/30/2023 14:21:34 12/03/2023 text/html . Patient is [...] cephalexin. Jordi Quiles DPM [address], [facility] [address], [place], [address], [employer] 12/04/2023 12:27:39 12/12/2023 text/html . Patient is [...] other complaints. Jordi Quiles DPM [address], [facility] [address], [place], [address], [employer] 12/12/2023 14:25:36 12/19/2023 text/html . Patient is [...] cut. Jordi Quiles DPM [address], [facility] [address], [place], [address], [employer] 12/19/2023 17:26:20 03/26/2024 text/html . Patient is [...] elects to continue. Jordi Quiles DPM [address], [facility] [address], [place], [address], [employer] 03/26/2024 16:47:28
--- OUTSIDE RECORDS SUMMARY | 2024-12-19 13:56 | XMS_ITS | Encounter Summary ---
Author Organization [facility] Healthcare Address [address] [place] [address] Care Team Providers Care Civil Preparedness Officer Name Role Phone Pranav Jones MD Primary Care Provider + [phone] Sandra Frazier OT Unavailable Unavailab Madhuri De Leon DPT Unavail able Encounter Details Date Type Department Care Team (Late st Contact Info) Description 10/31/2024 Results Follow-Up [facility] Medical [facility] Convenient Care at [address] [address] Carly Zhang NP [address] [place] [address] [address] [place] [address] Urine culture Urine, suprapubic catheter Social History Tobacco Use Types Packs/Day Years Used Date Smoking Tobacco: Former Cigarettes Smokeless Tobacco: Never Alcohol Use Standard Drinks/Week Comments Defer 0 (1 standard drink = 0.6 oz pur e alcohol) [facility] Utilities Answer Date Recorded In the past 12 months has [employer], gas, oil, or water company threatened to [...] often do you attend chur ch or anabaptist services? Never 11/03/2024 Do you belong to any clubs o r organizations such as anabaptist groups, unions, fraternal or athletic groups, or [...] any time in the past 12 m ont, were you homeless or living in a retirement (including now)? No 11/03/2024 Personal Safety Answer Date Recorded Have you ever been in or are you currently in a harmful physical or emotional relationship or is someone making you feel afraid or unsafe? 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 Gender Identity Not on file Sexual Orientation Not on file documented as of this encounter Ordered Prescriptions Prescription Sig Dispense Quantity Refills Last Filled Start Date End Date nitrofurantoin monohydrate (MACROBID) 100 mg capsule Take 1 capsule (100 mg total) by mouth 2 (two) times a day for 7 days Take with food 14 capsule 10/31/2024 documented in this encounter Plan of Treatment Not on file documented as of this encounter Visit Diagnoses Not on filedocumented in this encounter Additional Health Concerns Infection Onset Date Last Indicated Resolved Time MDR gram neg/ESBL 10/28/2024 10/28/2024 documented as of this encounter Care Teams Civil Preparedness Officer Relationship Specialty Start Date End Date Pranav Jones MD PCP - General 01/10/17 Sandra Frazier OT Occupational Therapist Occupational Therapy 01/07/18 Madhuri Abdul DPT [address] [place] [address] Physical Therapist Physical Therapy 12/20/21 documented as of this encounter
--- OUTSIDE RECORDS SUMMARY | 2024-12-19 13:56 | XMS_ITS | Encounter Summary ---
Author Organization [facility] Address [address] [place] [address] Phone Care Team Providers Care Care Trainer Name Role Phone Pranav Jones MD Primary Care Provider + [phone] Sandra Frazier OT Unavailable Unavailab Madhuri De Leon DPT Unavail able Encounter Details Date Type Department Care Team (Latest Contact Info) Description 09/03/2018 Orders Only [facility] Scanning, Provider Social History Tobacco Use Types Packs/Day Years Used Date Smoking Tobacco: Former Smokeless Tobacco: Never Sex and Gender Information Value Date Recorded Sex Assigned at Not on file 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 difficile suspected 10/09/2023 10/09/202310/11 3:07 AM CDT C. difficile suspected 11/25/2023 11/25/202311/27 3:05 AM CDT MDR gram neg/ESBL 10/28/2024 10/28/2024 documented as of this encounter Care Teams Care Trainer Relationship Specialty Start Date End Date Pranav Jones MD PCP - General 01/10/17 Sandra Frazier OT Occupational Therapist Occupational Therapy 01/07/18 Madhuri Abdul DPT [address] [facility] [address] [place] [address] Physical Therapist Physical Therapy 12/20/21 documented as of this encounter
--- OUTSIDE RECORDS SUMMARY | 2024-12-19 13:56 | XMS_ITS | Clinical Summary ---
Author Organization [facility] Address [address] [place] [address] Care Team Providers Care Salesforce Specialist Name Role Phone Pranav Jones MD Primary Care Provider + [phone] Sandra Frazier OT Unavailable Unavailab Madhuri De [...] Department Care Team Description 12/02/2024 Telephone [facility] [address] Advanced Medicine 5th [place] [address] [place] [address] Damir Larkin NP 12/01/2024 Orders Only [facility] [address] [place] [address] Elpidio Castro RN 11/20/2024 2:15 PM CDT Office Visit [facility] at [address] [phone] Rosa Vieira NP Constipation, unspecified constipation type (Primary Dx) 10/31/2024 4:48 PM CDT - 11/05/2024 2:15 PM CDT Hospital Encounter [facility] [address] [place] [address] Giovani Pearce, DO Armas, MD Pawel Llamas Supriya, MD Gaspe Mudiyanselage, Nilupa Sewwandi, MD Urinary tract infection associated with cystostomy catheter, initial encounter (Primary Dx) Discharge Disposition: Discharge to home, home health skilled care 10/31/2024 Results Follow-Up [facility] at [address] [phone] Carly Zhang NP Urine culture Urine, suprapubic catheter 10/30/[address] Medical Office Building [address] [place] [address] Piyush Andrade MD 10/28/2024 2:33 PM CDT - 10/28/2024 11:59 PM CDT Hospital Encounter [address] [address] Acute cystitis with hematuria Discharge Disposition: Discharge to home or self care 10/28/2024 2:15 PM CDT Office Visit [facility] at [address] [phone] Rosa Vieira NP Acute cystitis with hematuria (Primary Dx); History of recurrent UTIs from Last 3 Months Immunizations Immunization Administration Dates Next Due Influenza, Quadrivalent, Spl it, Preservative Free, Intramuscular 09/07/2023,05/24/2021,06/15/2020,07/15,05/23/2018,05/08/2018 Lanie (J&J) SARS-CoV-2 Vaccination 10/12/2020 Surgical History Surgery Date Site/Laterality Comments OR ARTHRD ANT INTERBODY MIN DSC CRV BELOW C2 Cervical Vertebral Fusion - (Added by TW Conv) Medical History Medical History Date Comments Personal history of diseases of skin or subcutaneous tissue History of decubitus ulcer - (Added by TW Conv) Urinary tract infection UTI (uri nary tract infection) with pyuria - (Added by TW Conv) Family History Medical History Relation Name Comments Hip fracture Neg Hx Osteoporosis Neg Hx Social History Tobacco Use Types Packs/Day Years Used Date Smoking Tobacco: Former Cigarettes Smokeless Tobacco: Never Tobacco Cessation:Counseling Given: Not Answered Alcohol Use Standard Drinks/Week Comments Defer 0 (1 standard drink = 0.6 oz pur e alcohol) [facility] Utilities Answer Date Recorded In the past 12 months has e electric, gas, oil, or water Tech in [place] threatened to shut off services in your [...] often do you attend chur ch or adventist services? Never 11/03/2024 Do you belong to [...] place to sleep or slept in a fci (including now)? No 11/26/2023 Housing Stability Vital Sign Answer Jori e Recorded In the last 12 months, was t here a time when you were not able to pay the mortgage or rent on time? No 11/03/2024 In the past 12 months, how m any times have you moved where you were living? 0 11/03/2024 At any time in the past 12 m [facility], were you homeless or living in a fci (including now)? No 11/03/2024 Personal Safety Answer Date Recorded Have you ever been in or are you currently in a harmful physical or emotional relationship or is someone making you feel afraid or unsafe? Denies 10/31/2024 Sex and Gender Information Value Date Recorded Sex Assigned at Not on file Legal Sex Male 8:11 AM [employer] Gender Identity Not on file Sexual Orientation [...] 10/31/2024 7:25 PM CDT Plan of Treatment Health Maintenance Due Date [...] of Race in Diagnosing Kidney Disease, JASN 2021). The CKD-EPI equation should not be used for patients with unstable renal function and has not been validated in children and those over 70. Current interpretive data was last reviewed 2021. Testing performed by: [address] [address] Blood 11/05/2024 5:22 AM CDT 11/05/2024 5:58 AM CDT us Keara Armas MD LAB BLOOD ORDERABLES Final Resu lt [place] [id number] [facility] Department [place] [address] * (ABNORMAL) Differential, auto (11/05/2024 5:22 AM CDT) Neutrophil abs 2.39 1.50 - 6.50 K/cumm Comment:Testing performed by : [address] [address] Imm gran abs 0.03 0.00 - 0.10 K/cumm MELISA Comment:Testing performed by : [address] [address] Lymphocyte abs 2.06 0.80 - 3.30 K/cumm MELISA Comment:Testing performed by : [address] [address] Monocyte abs 0.87(H) 0.20 - 0.80 K/cumm MELISA Comment:Testing performed by : [address] [address] Eosinophil abs 0.26 0.00 - 0.50 K/cumm MELISA Comment:Testing performed by : [address] [address] Basophil abs 0.03 0.00 - 0.10 K/cumm MELISA Comment:Testing performed by : [address] [address] Neutrophil pct 42.5 % MELISA Comment: Interpretive Data Percent cell count reference ranges are not reported, since discordance with absolute values may lead to misinterpretation of CBC data. Current Interpretive Data was last revised on 2017. Testing performed by: [address] [address] Imm gran pct 0.5 % MELISA Comment: Interpretive Data Percent cell count reference ranges are not reported, since discordance with absolute values may lead to misinterpretation of CBC data. Current Interpretive Data was last revised on 2017. Testing performed by: [address] [address] Lymphocyte pct 36.5 % [facility] Comment: Interpretive Data Percent cell count reference ranges are not reported, since discordance with absolute values may lead to misinterpretation of CBC data. Current Interpretive Data was last revised on 2017. Testing performed by: [address] [address] Monocyte pct 15.4 % MELISA Comment: Interpretive Data Percent cell count reference ranges are not reported, since discordance with absolute values may lead to misinterpretation of CBC data. Current Interpretive Data was last revised on 2017. Testing performed by: [address] [address] Eosinophil pct 4.6 % [facility] Comment: Interpretive Data Percent cell count reference ranges are not reported, since discordance with absolute values may lead to misinterpretation of CBC data. Current Interpretive Data was last revised on 2017. Testing performed by: [address] [address] Basophil pct 0.5 % MELISA Comment: Interpretive Data Percent cell count reference ranges are not reported, since discordance with absolute values may lead to misinterpretation of CBC data. Current Interpretive Data was last revised on 2017. Testing performed by: [address] [address] Blood 11/05/2024 5:22 AM CDT 11/05/2024 5:58 AM CDT us Keara Armas MD LAB BLOOD ORDERABLES Final Resu lt MELISA [address] Department [place] [address] * (ABNORMAL) CBC with auto differential (11/05/2024 5:22 AM CDT) [facility] WBC 5.64 3.80 - 9.90 K/cumm Comment:Testing performed by : [address] [address] Hgb 12.9(L) 13.0 - 17.5 g/dL MELISA Comment:Testing performed by : [address], [address] Hct 37.5(L) 38.9 - 50.3 % MELISA Comment:Testing performed by : [address] [address] Plt 196 150 - 400 K/cumm MELISA Comment:Testing performed by : [address] [address] MPV 10.0 9.1 - 12.3 fL MELISA Comment:Testing performed by : [address] [address] RBC 3.97(L) 4.30 - 5.80 M/cumm MELISA Comment:Testing performed by : [address] [address] MCV 94.5 81.3 - 96.4 fL MELISA Comment:Testing performed by : [address] [address] MCH 32.5 27.1 - 33.3 pg MELISA Comment:Testing performed by : [address] [address] MCHC 34.4 32.3 - 35.7 g/dL MELISA Comment:Testing performed by : [address], [address] RDW CV 12.4 11.1 - 14.9 % MELISA Comment:Testing performed by : [address] [address] RDW SD 43.2 35.7 - 48.1 fL MELISA Comment:Testing performed by : [address] [place]., [address] NRBC abs 0.00 0.00 - 0.01 K/cumm MELISA Comment:Testing performed by : [address] [address] Blood 11/05/2024 5:22 AM CDT 11/05/2024 5:58 AM CDT us Keara Armas MD LAB BLOOD ORDERABLES Final Resu lt MELISA [address] [facility] Department [place] [address] * (ABNORMAL) Basic metabolic panel (11/05/2024 5:22 AM CDT) Sodium 140 135 - 145 mmol/L Comment:Testing performed by : [address] [address] Potassium, pl 3.9 3.3 - 4.9 mmol/L MELISA Comment:Testing performed by : [address] [address] Chloride 104 97 - 110 mmol/L MELISA Comment:Testing performed by : [address] [address] CO2 24 22 - 32 mmol/L MELISA Comment:Testing performed by : [address] [address] Anion gap 12 2 - 15 mmol/L MELISA Comment:Testing performed by : [address] [address] BUN 11 6 - 25 mg/dL MELISA Comment:Testing performed by : [address] [address] Creatinine 0.30(L) 0.80 - 1.30 mg/dL MELISA Comment:Testing performed by : [address] [address] Glucose 119 70 - 199 mg/dL MELISA [...] was last revised 2022. Testing performed by: [facility], [address] [place] [address]., [address] Calcium 9.6 8.5 - 10.3 mg/dL MELISA RIZZO Comment:Testing performed by : [facility], [address] [place] [address]., [address] Blood 11/05/2024 5:22 AM CDT 11/05/2024 5:58 AM CDT us Keara Armas MD LAB BLOOD ORDERABLES Final Resu lt MELISA RIZZO [address] [facility] Department [place] [address] * eGFR (11/04/2024 8:31 AM CDT) eGFR >90 >=60 mL/min/1. 73 [...] was last reviewed 2021. Testing performed by: [address] [address] Blood 11/04/2024 8:31 AM CDT 11/04/2024 9:01 AM CDT us Rasheed Kumari MD LAB BLOOD ORDERABLES Final R esult [place] [address] [facility] Department [place] [address] * Differential, auto (11/04/2024 8:31 AM CDT) Neutrophil abs 2.83 1.50 - 6.50 K/cumm Comment:Testing performed by : [address] [address] Imm gran abs 0.02 0.00 - 0.10 K/cumm MELISA Comment:Testing performed by : [address] [address] Lymphocyte abs 1.37 0.80 - 3.30 K/cumm MELISA Comment:Testing performed by : [address] [address] Monocyte abs 0.73 0.20 - 0.80 K/cumm MELISA Comment:Testing performed by : [address] [address] Eosinophil abs 0.31 0.00 - 0.50 K/cumm MELISA Comment:Testing performed by : [address] [address] Basophil abs 0.03 0.00 - 0.10 K/cumm MELISA Comment:Testing performed by : [address] [address] Neutrophil pct 53.4 % MELISA Comment: Interpretive Data Percent cell count reference ranges are not reported, since discordance with absolute values may lead to misinterpretation of CBC data. Current Interpretive Data was last revised on 2017. Testing performed by: [address] [address] Imm gran pct 0.4 % MELISA Comment: Interpretive Data Percent cell count reference ranges are not reported, since discordance with absolute values may lead to misinterpretation of CBC data. Current Interpretive Data was last revised on 2017. Testing performed by: [address] [address] Lymphocyte pct 25.9 % MELISA Comment: Interpretive Data Percent cell count reference ranges are not reported, since discordance with absolute values may lead to misinterpretation of CBC data. Current Interpretive Data was last revised on 2017. Testing performed by: [address] [address] Monocyte pct 13.8 % MELISA Comment: Interpretive Data Percent cell count reference ranges are not reported, since discordance with absolute values may lead to misinterpretation of CBC data. Current Interpretive Data was last revised on 2017. Testing performed by: [address] [address] Eosinophil pct 5.9 % MELISA Comment: Interpretive Data Percent cell count reference ranges are not reported, since discordance with absolute values may lead to misinterpretation of CBC data. Current Interpretive Data was last revised on 2017. Testing performed by: [address] [address] Basophil pct 0.6 % MELISA Comment: Interpretive Data Percent cell count reference ranges are not reported, since discordance with absolute values may lead to misinterpretation of CBC data. Current Interpretive Data was last revised on 2017. Testing performed by: [address] [address] Blood 11/04/2024 8:31 AM CDT 11/04/2024 9:01 AM CDT us Rasheed Kumari MD LAB BLOOD ORDERABLES Final R esult MELISA RIZZO [address] [facility] Department [place] [address] * (ABNORMAL) CBC with auto differential (11/04/2024 8:31 AM CDT) WBC 5.29 3.80 - 9.90 K/cumm Comment:Testing performed by : [address] [address] Hgb 12.6(L) 13.0 - 17.5 g/dL MELISA Comment:Testing performed by : [address] [address] Hct 37.1(L) 38.9 - 50.3 % MELISA Comment:Testing performed by : [address] [address] Plt 176 150 - 400 K/cumm MELISA Comment:Testing performed by : [address], [address] MPV 10.1 9.1 - 12.3 fL MELISA Comment:Testing performed by : [address] [address] RBC 3.93(L) 4.30 - 5.80 M/cumm MELISA Comment:Testing performed by : [address] [address] MCV 94.4 81.3 - 96.4 fL MELISA Comment:Testing performed by : [address], [address] MCH 32.1 27.1 - 33.3 pg MELISA Comment:Testing performed by : [address] [address] MCHC 34.0 32.3 - 35.7 g/dL MELISA Comment:Testing performed by : [address], [address] RDW CV 12.4 11.1 - 14.9 % MELISA Comment:Testing performed by : [address], [address] RDW SD 43.2 35.7 - 48.1 fL MELISA Comment:Testing performed by : [address] [address] NRBC abs 0.00 0.00 - 0.01 K/cumm MELISA Comment:Testing performed by : [address] [address] Blood 11/04/2024 8:31 AM CDT 11/04/2024 9:01 AM CDT us Rasheed Kumari MD LAB BLOOD ORDERABLES Final [facility]ult [facility] [address] [facility] Department [place] [address] * (ABNORMAL) Comprehensive metabolic panel (11/04/2024 8:31 AM CDT) Sodium 140 135 - 145 mmol/L Comment:Testing performed by : [address] [address] Potassium, pl 3.8 3.3 - 4.9 mmol/L MELISA Comment:Testing performed by : [address] [address] Chloride 104 97 - 110 mmol/L MELISA Comment:Testing performed by : [address] [address] CO2 25 22 - 32 mmol/L MELISA Comment:Testing performed by : [address] [address] Anion gap 11 2 - 15 mmol/L MELISA Comment:Testing performed by : [address] [address] BUN 14 6 - 25 mg/dL MELISA Comment:Testing performed by : [address] [address] Creatinine 0.30(L) 0.80 - 1.30 mg/dL MELISA Comment:Testing performed by : [address] [address] Glucose 123 70 - 199 mg/dL MELISA Comment: Interpretive [...] was last revised 2022. Testing performed by: [address] [address] Calcium 9.2 8.5 - 10.3 mg/dL MELISA Comment:Testing performed by : [address] [address] Bilirubin, total 1.2 0.1 - 1.2 mg/dL [facility] Comment:Testing performed by : [address] [address] Protein, pl 7.0 6.5 - 8.5 g/dL MELISA Comment:Testing performed by : [address] [address] Albumin 3.9 3.5 - 5.0 g/dL MELISA Comment:Testing performed by : [address] [address] Alk phos 82 40 - 130 Units/L [facility] Comment:Testing performed by : [address] [address] ALT 148(H) 7 - 55 Units/L MELISA Comment:Testing performed by : [address] [address] AST 90(H) 10 - 50 Units/L [facility] Comment:Testing performed by : [address] [address] Blood 11/04/2024 8:31 AM CDT 11/04/2024 9:01 AM CDT us Rasheed Kumari MD LAB BLOOD ORDERABLES Final R esult MELISA RIZZO [address] [facility] Department of Laboratories [place], [place] [id number] * eGFR (11/03/2024 5:58 AM CDT) eGFR [...] was last reviewed 2021. Testing performed by: [address] [address] Blood 11/03/2024 5:58 AM CDT 11/03/2024 6:15 AM CDT us Dorie Armas MD LAB BLOOD ORDERABLES F inal Result MELISA [address] [facility] Department [place] [address] * (ABNORMAL) Differential, auto (11/03/2024 5:58 AM CDT) Neutrophil abs 3.74 1.50 - 6.50 K/cumm Comment:Testing performed by : [address] [address] Imm gran abs 0.03 0.00 - 0.10 K/cumm MELISA Comment:Testing performed by : [address] [address] Lymphocyte abs 1.43 0.80 - 3.30 K/cumm MELISA Comment:Testing performed by : [address] [address] Monocyte abs 0.82(H) 0.20 - 0.80 K/cumm MELISA RIZZO Comment:Testing performed by : [address] [address] Eosinophil abs 0.17 0.00 - 0.50 K/cumm MELISA Comment:Testing performed by : [address] [address] Basophil abs 0.04 0.00 - 0.10 K/cumm MELISA Comment:Testing performed by : [address] [address] Neutrophil pct 60.0 % [facility] Comment: Interpretive Data Percent cell count reference ranges are not reported, since discordance with absolute values may lead to misinterpretation of CBC data. Current Interpretive Data was last revised on 2017. Testing performed by: [address] [address] Imm gran pct 0.5 % [facility] Comment: Interpretive Data Percent cell count reference ranges are not reported, since discordance with absolute values may lead to misinterpretation of CBC data. Current Interpretive Data was last revised on 2017. Testing performed by: [address] [address] Lymphocyte pct 23.0 % [facility] Comment: Interpretive Data Percent cell count reference ranges are not reported, since discordance with absolute values may lead to misinterpretation of CBC data. Current Interpretive Data was last revised on 2017. Testing performed by: [address] [address] Monocyte pct 13.2 % [facility] Comment: Interpretive Data Percent cell count reference ranges are not reported, since discordance with absolute values may lead to misinterpretation of CBC data. Current Interpretive Data was last revised on 2017. Testing performed by: [address] [address] Eosinophil pct 2.7 % [facility] Comment: Interpretive Data Percent cell count reference ranges are not reported, since discordance with absolute values may lead to misinterpretation of CBC data. Current Interpretive Data was last revised on 2017. Testing performed by: [address] [address] Basophil pct 0.6 % [facility] Comment: Interpretive Data Percent cell count reference ranges are not reported, since discordance with absolute values may lead to misinterpretation of CBC data. Current Interpretive Data was last revised on 2017. Testing performed by: [address] [address] Blood 11/03/2024 5:58 AM CDT 11/03/2024 6:15 AM CDT us Dorie Armas MD LAB BLOOD ORDERABLES F inal Result [facility] [address] [facility] Department [place] [address] * (ABNORMAL) CBC with auto differential (11/03/2024 5:58 AM CDT) WBC 6.23 3.80 - 9.90 K/cumm Comment:Testing performed by : [address] [address] Hgb 12.2(L) 13.0 - 17.5 g/dL MELISA Comment:Testing performed by : [address] [address] Hct 36.3(L) 38.9 - 50.3 % MELISA Comment:Testing performed by : [address] [address] Plt 180 150 - 400 K/cumm MELISA Comment:Testing performed by : [address] [address] MPV 10.0 9.1 - 12.3 fL MELISA Comment:Testing performed by : [address] [address] RBC 3.79(L) 4.30 - 5.80 M/cumm MELISA Comment:Testing performed by : [address] [address] MCV 95.8 81.3 - 96.4 fL MELISA Comment:Testing performed by : [address] [address] MCH 32.2 27.1 - 33.3 pg MELISA RIZZO Comment:Testing performed by : [address] [address] MCHC 33.6 32.3 - 35.7 g/dL MELISA RIZZO Comment:Testing performed by : [address] [address] RDW CV 12.6 11.1 - 14.9 % MELISA RIZZO Comment:Testing performed by : [address] [address] RDW SD 43.8 35.7 - 48.1 fL MELISA RIZZO Comment:Testing performed by : [address] [address] NRBC abs 0.00 0.00 - 0.01 K/cumm MELISA RIZZO Comment:Testing performed by : [address] [address] Blood 11/03/2024 5:58 AM CDT 11/03/2024 6:15 AM CDT us Dorie Armas MD LAB BLOOD ORDERABLES F inal Result Performing Organization Address City/[facility]/ZIP Co de Phone Number [address] [place] [address] * Erythrocyte sedimentation rate (11/03/2024 5:58 AM CDT) Erythrocyte sedimentation rate 17 1 - 20 mm/hr Comment:Testing performed by : [address] [address] Blood 11/03/2024 5:58 AM CDT 11/03/2024 6:15 AM CDT us Keaar Armas MD LAB BLOOD ORDERABLES Final Resu lt [address] [address] * (ABNORMAL) Comprehensive metabolic panel (11/03/2024 5:58 AM CDT) [facility] Sodium 136 135 - 145 mmol/L Comment:Testing performed by : [facility], [address] [place] [address]., [address] Potassium, pl 3.6 3.3 - 4.9 mmol/L MELISA Comment:Testing performed by : [address], [place]., [address] Chloride 101 97 - 110 mmol/L MELISA Comment:Testing performed by : [address], [place]., [address] CO2 26 22 - 32 mmol/L MELISA Comment:Testing performed by : [address], [place]., [address] Anion gap 9 2 - 15 mmol/L MELISA Comment:Testing performed by : [address], [place]., [address] BUN 15 6 - 25 mg/dL MELISA Comment:Testing performed by : [address], [place]., [address] Creatinine 0.30(L) 0.80 - 1.30 mg/dL [facility] Comment:Testing performed by : [address], [place]., [address] Glucose 118 70 - 199 mg/dL [facility] Comment: Interpretive Data Fasting glucose >/= [...] was last revised 2022. Testing performed by: [address] [address] Calcium 9.3 8.5 - 10.3 mg/dL MELISA Comment:Testing performed by : [address] [address] Bilirubin, total 0.7 0.1 - 1.2 mg/dL MELISA RIZZO Comment:Testing performed by : [address] [address] Protein, pl 6.8 6.5 - 8.5 g/dL MELISA RIZZO Comment:Testing performed by : [address] [address] Albumin 3.9 3.5 - 5.0 g/dL MELISA Comment:Testing performed by : [address] [address] Alk phos 79 40 - 130 Units/L MELISA Comment:Testing performed by : [address] [address] ALT 34 7 - 55 Units/L MELISA Comment:Testing performed by : [address] [address] AST 19 10 - 50 Units/L MELISA Comment:Testing performed by : [address] [address] Blood 11/03/2024 5:58 AM CDT 11/03/2024 6:15 AM CDT us Dorie Armas MD LAB BLOOD ORDERABLES F inal Result MELISA [address] [facility] Department of Laboratories [place], [place] [id number] * eGFR (11/02/2024 7:15 AM CDT) eGFR [...] of Race in Diagnosing Kidney Disease, JASN 202). The CKD-EPI equation should not be used for patients with unstable renal function and has not been validated in children and those over 70. Current interpretive data was last reviewed 2021. Testing performed by: [address] [address] Blood 11/02/2024 7:15 AM CDT 11/02/2024 7:39 AM CDT us Dorie Armas MD LAB BLOOD ORDERABLES F inal Result [facility] [address] [facility] Department of Laboratories [place], [place] [id number] * Differential, auto (11/02/2024 7:15 AM CDT) Neutrophil abs 2.86 1.50 - 6.50 K/cumm Comment:Testing performed by : [address] [address] Imm gran abs 0.03 0.00 - 0.10 K/cumm MELISA Comment:Testing performed by : [address] [address] Lymphocyte abs 1.06 0.80 - 3.30 K/cumm MELISA Comment:Testing performed by : [address] [address] Monocyte abs 0.71 0.20 - 0.80 K/cumm MELISA Comment:Testing performed by : [address] [address] Eosinophil abs 0.12 0.00 - 0.50 K/cumm MELISA Comment:Testing performed by : [address] [address] Basophil abs 0.04 0.00 - 0.10 K/cumm MELISA Comment:Testing performed by : [address] [address] Neutrophil pct 59.4 % MELISA Comment: Interpretive Data Percent cell count reference ranges are not reported, since discordance with absolute values may lead to misinterpretation of CBC data. Current Interpretive Data was last revised on 2017. Testing performed by: [address] [address] Imm gran pct 0.6 % [facility] Comment: Interpretive Data Percent cell count reference ranges are not reported, since discordance with absolute values may lead to misinterpretation of CBC data. Current Interpretive Data was last revised on 2017. Testing performed by: [address] [address] Lymphocyte pct 22.0 % [facility] Comment: Interpretive Data Percent cell count reference ranges are not reported, since discordance with absolute values may lead to misinterpretation of CBC data. Current Interpretive Data was last revised on 2017. Testing performed by: [address] [address] Monocyte pct 14.7 % [facility] Comment: Interpretive Data Percent cell count reference ranges are not reported, since discordance with absolute values may lead to misinterpretation of CBC data. Current Interpretive Data was last revised on 2017. Testing performed by: [address] [address] Eosinophil pct 2.5 % [facility] Comment: Interpretive Data Percent cell count reference ranges are not reported, since discordance with absolute values may lead to misinterpretation of CBC data. Current Interpretive Data was last revised on 2017. Testing performed by: [address] [address] Basophil pct 0.8 % [facility] Comment: Interpretive Data Percent cell count reference ranges are not reported, since discordance with absolute values may lead to misinterpretation of CBC data. Current Interpretive Data was last revised on 2017. Testing performed by: [address] [address] Blood 11/02/2024 7:15 AM CDT 11/02/2024 7:39 AM CDT us Dorie Armas MD LAB BLOOD ORDERABLES F inal Result MELISA [address] [facility] Department [place] [address] * (ABNORMAL) CBC with auto differential (11/02/2024 7:15 AM CDT) WBC 4.82 3.80 - 9.90 K/cumm Comment:Testing performed by : [address] [address] Hgb 12.2(L) 13.0 - 17.5 g/dL MELISA Comment:Testing performed by : [address] [address] Hct 36.3(L) 38.9 - 50.3 % MELISA Comment:Testing performed by : [address] [address] Plt 175 150 - 400 K/cumm MELISA Comment:Testing performed by : [address] [address] MPV 9.9 9.1 - 12.3 fL MELISA Comment:Testing performed by : [address] [address] RBC 3.78(L) 4.30 - 5.80 M/cumm MELISA Comment:Testing performed by : [address] [address] MCV 96.0 81.3 - 96.4 fL MELISA Comment:Testing performed by : [address] [address] MCH 32.3 27.1 - 33.3 pg MELISA Comment:Testing performed by : [address] [address] MCHC 33.6 32.3 - 35.7 g/dL MELISA Comment:Testing performed by : [address], [address] RDW CV 12.6 11.1 - 14.9 % MELISA Comment:Testing performed by : [address], [address] RDW SD 43.8 35.7 - 48.1 fL MELISA Comment:Testing performed by : [address] [address] NRBC abs 0.00 0.00 - 0.01 K/cumm MELISA Comment:Testing performed by : [address] [address] Blood 11/02/2024 7:15 AM CDT 11/02/2024 7:39 AM CDT us Dorie Armas MD LAB BLOOD ORDERABLES F inal Result MELISA [facility] Department [place] [address] * (ABNORMAL) Comprehensive metabolic panel (11/02/2024 7:15 AM CDT) Sodium 141 135 - 145 mmol/L Comment:Testing performed by : [address] [address] Potassium, pl 3.9 3.3 - 4.9 mmol/L MELISA Comment:Testing performed by : [address] [address] Chloride 107 97 - 110 mmol/L MELISA Comment:Testing performed by : [address] [address] CO2 23 22 - 32 mmol/L MELISA Comment:Testing performed by : [address] [address] Anion gap 11 2 - 15 mmol/L MELISA Comment:Testing performed by : [address] [address] BUN 13 6 - 25 mg/dL MELISA Comment:Testing performed by : [address] [address] Creatinine 0.30(L) 0.80 - 1.30 mg/dL MELISA Comment:Testing performed by : [address] [address] Glucose 125 70 - 199 mg/dL MELISA [...] was last revised 2022. Testing performed by: [address] [address] Calcium 9.1 8.5 - 10.3 mg/dL MELISA Comment:Testing performed by : [address] [address] Bilirubin, total 0.8 0.1 - 1.2 mg/dL MELISA Comment:Testing performed by : [address] [address] Protein, pl 6.6 6.5 - 8.5 g/dL MELISA Comment:Testing performed by : [address] [address] Albumin 3.7 3.5 - 5.0 g/dL MELISA Comment:Testing performed by : [address] [address] Alk phos 76 40 - 130 Units/L MELISA Comment:Testing performed by : [address] [address] ALT 33 7 - 55 Units/L MELISA Comment:Testing performed by : [address] [address] AST 17 10 - 50 Units/L MELISA Comment:Testing performed by : [address] [address] Blood 11/02/2024 7:15 AM CDT 11/02/2024 7:39 AM CDT us Dorie Armas MD LAB BLOOD ORDERABLES F inal Result [facility] [address] Department [place] [address] * Vancomycin level trough (2024 6:00 PM CDT) Pathologist [facility] Vancomycin trough 13.8 10.0 - 20.0 mcg/mL Comment:Testing performed by : [address] [address] Blood 2024 6:00 PM CDT 2024 6:10 PM CDT us Dorie Armas MD LAB BLOOD ORDERABLES F inal Result MELISA [address] [facility] [place] [address] * eGFR (2024 7:55 AM CDT) Pathologist [facility] eGFR >90 >=60 mL/min/1. 73 m2 Comment: [...] was last reviewed 2021. Testing performed by: [address] [address] Blood 2024 7:55 AM CDT 2024 8:04 AM CDT us Dorie Armas MD LAB BLOOD ORDERABLES F inal Result [facility] [address] [facility] Department [place] [address] * Differential, auto (2024 7:55 AM CDT) Neutrophil abs 3.89 1.50 - 6.50 K/cumm Comment:Testing performed by : [address] [address] Imm gran abs 0.03 0.00 - 0.10 K/cumm MELISA Comment:Testing performed by : [address] [address] Lymphocyte abs 1.07 0.80 - 3.30 K/cumm MELISA Comment:Testing performed by : [address] [address] Monocyte abs 0.62 0.20 - 0.80 K/cumm MELISA Comment:Testing performed by : [address] [address] Eosinophil abs 0.14 0.00 - 0.50 K/cumm [facility] Comment:Testing performed by : [address] [address] Basophil abs 0.03 0.00 - 0.10 K/cumm [facility] Comment:Testing performed by : [address] [address] Neutrophil pct 67.4 % [facility] Comment: Interpretive Data Percent cell count reference ranges are not reported, since discordance with absolute values may lead to misinterpretation of CBC data. Current Interpretive Data was last revised on 2017. Testing performed by: [address] [address] Imm gran pct 0.5 % MELISA Comment: Interpretive Data Percent cell count reference ranges are not reported, since discordance with absolute values may lead to misinterpretation of CBC data. Current Interpretive Data was last revised on 2017. Testing performed by: [address] [address] Lymphocyte pct 18.5 % MELISA Comment: Interpretive Data Percent cell count reference ranges are not reported, since discordance with absolute values may lead to misinterpretation of CBC data. Current Interpretive Data was last revised on 2017. Testing performed by: [address] [address] Monocyte pct 10.7 % MELISA Comment: Interpretive Data Percent cell count reference ranges are not reported, since discordance with absolute values may lead to misinterpretation of CBC data. Current Interpretive Data was last revised on 2017. Testing performed by: [address] [address] Eosinophil pct 2.4 % MELISA Comment: Interpretive Data Percent cell count reference ranges are not reported, since discordance with absolute values may lead to misinterpretation of CBC data. Current Interpretive Data was last revised on 2017. Testing performed by: [address] [address] Basophil pct 0.5 % MELISA Comment: Interpretive Data Percent cell count reference ranges are not reported, since discordance with absolute values may lead to misinterpretation of CBC data. Current Interpretive Data was last revised on 2017. Testing performed by: [address] [address] Blood 2024 7:55 AM CDT 2024 8:04 AM CDT us Dorie Armas MD LAB BLOOD ORDERABLES F inal Result [facility] [address] [facility] Department [place] [address] * (ABNORMAL) CBC with auto differential (2024 7:55 AM CDT) WBC 5.78 3.80 - 9.90 K/cumm Comment:Testing performed by : [address] [address] Hgb 12.3(L) 13.0 - 17.5 g/dL MELISA Comment:Testing performed by : [address] [place] [address] Hct 36.6(L) 38.9 - 50.3 % MELISA Comment:Testing performed by : [address] [address] Plt 173 150 - 400 K/cumm MELISA Comment:Testing performed by : [address] [address] MPV 10.0 9.1 - 12.3 fL MELISA Comment:Testing performed by : [address], [address] RBC 3.80(L) 4.30 - 5.80 M/cumm MELISA Comment:Testing performed by : [address], [address] MCV 96.3 81.3 - 96.4 fL MELISA Comment:Testing performed by : [address], [address] MCH 32.4 27.1 - 33.3 pg MELISA Comment:Testing performed by : [address], [address] MCHC 33.6 32.3 - 35.7 g/dL MELISA Comment:Testing performed by : [address], [address] RDW CV 12.5 11.1 - 14.9 % MELISA Comment:Testing performed by : [address], [address] RDW SD 43.9 35.7 - 48.1 fL MELISA Comment:Testing performed by : [address], [address] NRBC abs 0.00 0.00 - 0.01 K/cumm MELISA Comment:Testing performed by : [address], [address] Blood 2024 7:55 AM CDT 2024 8:04 AM CDT us Dorie Armas MD LAB BLOOD ORDERABLES F inal Result MELISA [address] [facility] Department [place] [address] * (ABNORMAL) Comprehensive metabolic panel (2024 7:55 AM CDT) Sodium 137 135 - 145 mmol/L Comment:Testing performed by : [address] [address] Potassium, pl 4.1 3.3 - 4.9 mmol/L MELISA Comment: Hemolyzed; Potassium value may be falsely elevated by as much as 1.0 mmol/L. Suggest redraw and reanalysis. Testing performed by: [address] [address] Chloride 107 97 - 110 mmol/L MELISA Comment:Testing performed by : [address] [address] CO2 21(L) 22 - 32 mmol/L MELISA Comment:Testing performed by : [address] [address] Anion gap 9 2 - 15 mmol/L MELISA Comment:Testing performed by : [address] [address] BUN 11 6 - 25 mg/dL MELISA Comment:Testing performed by : [address] [address] Creatinine 0.29(L) 0.80 - 1.30 mg/dL MELISA Comment:Testing performed by : [address] [address] Glucose 116 70 - 199 mg/dL [facility] Comment: Interpretive Data Fasting glucose >/= [...] was last revised 2022. Testing performed by: [address] [address] Calcium 9.4 8.5 - 10.3 mg/dL MELISA Comment:Testing performed by : [address] [address] Bilirubin, total 0.7 0.1 - 1.2 mg/dL MELISA Comment:Testing performed by : [address] [address] Protein, pl 6.5 6.5 - 8.5 g/dL MELISA Comment:Testing performed by : [address] [address] Albumin 3.8 3.5 - 5.0 g/dL MELISA Comment:Testing performed by : [address] [address] Alk phos 75 40 - 130 Units/L MELISA Comment:Testing performed by : [address] [address] ALT 39 7 - 55 Units/L MELISA Comment:Testing performed by : [address] [address] AST 24 10 - 50 Units/L MELISA Comment: Hemolyzed; result may be falsely elevated Testing performed by: [address] [address] Blood 2024 7:55 AM CDT 2024 8:04 AM CDT us Dorie Armas MD LAB BLOOD ORDERABLES F inal Result [facility] [address] [facility] Department [place] [address] * Sepsis Lactate w/ Reflex (10/31/2024 5:09 PM CDT) Sepsis Lactate 1.2 0.7 - 2.0 mmol/L Comment:Testing performed by : [address] [address] Blood 10/31/2024 5:09 PM CDT 10/31/2024 5:12 PM CDT Giovani Pearce DO LAB BLOOD ORDERABLES Final Result Performing Organization Address City/[facility]/ZIP Co de Phone Number MELISA RIZZO [address] [place] [address] Department [place] [address] * Blood culture Blood (10/31/2024 5:09 PM CDT) Report Final Report: No growth Comment:Testing performed by : [facility], [address] [facility] [place] [address] Blood 10/31/2024 5:09 PM CDT 10/31/2024 10:03 [...] performance characteristics have been verified by the [facility] Microbiology Laboratory. For questions about this culture, contact the Microbiology Laboratory at [phone]. Interpretive data was last revised on 24. us Matute Pawel Youhu LAB MICROBIOLOGY - GENERAL ORDERABLES Final Result Performing Organization Address City/[facility]/ZIP Co de Phone Number MELISA Pimentel [facility] Department [place] [address] * Blood culture Blood (10/31/2024 5:09 PM CDT) Report Final Report: No growth Comment:Testing performed by : [facility], [address] [facility], [place]., [address] Blood 10/31/2024 5:09 PM CDT 10/31/2024 10:03 PM CDT Narrative MELISA RIZZO - 11/05/2024 7:00 AM CDT Collection->Peripheral 1. [...] performance characteristics have been verified by the [facility] Microbiology Laboratory. For questions about this culture, contact the Microbiology Laboratory at [phone]. Interpretive data was last revised on 24. us Giovani Perace DO LAB MICROBIOLOGY - GENERAL ORDERABLES Final Result MELISA RIZZO [address] [facility] Department [place] [address] * XR Chest 1 Vw Portable (if [...] Giovani Vasquez M.D. KT: KT Report ID: [id number] Reading Location: [id number] Procedure Note Giovani Vasquez MD - 10/31/2024 [...] Giovani Vasquez M.D. KT: KT Report ID: [id number] Reading Location: [place] [address] us Giovani Pawel Pearce DO IMG XR PROCEDURES Final Res ult * (ABNORMAL) Urinalysis reflex to microscopic and culture Urine (10/31/2024 3:58 PM CDT) Color, ur Yellow Yellow Comment:Testing performed by : [address] [address] Clarity, ur Clear Clear MELISA Comment:Testing performed by : [address] [address] Specific gravity, ur 1.010 1.003 - 1.030 MELISA Comment:Testing performed by : [address] [address] pH, urine 7.0 MELISA Comment: Interpretive Data U rine pH is affected by diet, medications, systemic acid-base disturbances, and renal tubular function. pH may affect urinary stone formation. For example, urine pH below 6.0 may help reduce the tendency for calcium phosphate stones and pH greater than 6.0 may reduce the tendency for uric acid stone formation. Source: [facility] Current Interpretive Data was last revised on 2017 Testing performed by: [address] [address] Protein, ur ql Negative Negative MELISA Comment:Testing performed by : [address] [address] Glucose, ur ql Negative Negative MELISA Comment:Testing performed by : [address] [address] Ketones, ur Negative Negative MELISA Comment:Testing performed by : [address] [address] Bilirubin, ur Negative Negative MELISA Comment:Testing performed by : [facility], [address] [place] [address], [place]., [address] Blood, ur Negative Negative MELISA Comment:Testing performed by : [address], [place]., [address] Urobilinogen, ur <2.0 <2.0 mg/dL MELISA Comment:Testing performed by : [address], [place]., [address] Nitrite, ur Positive(A) Negative MELISA Comment:Testing performed by : [address], [place]., [address] Leukocyte esterase, ur 4+(A) Negative MELISA Comment:Testing performed by : [address], [place]., [address] UA reflex comment Reflex to microscopic UA will be performed. MELISA Comment:Testing performed by : [address], [place]., [address] Urine 10/31/2024 3:58 PM CDT 10/31/2024 4:02 PM CDT Narrative MELISA - 10/31/2024 4:16 PM CDT If patient unable to urinate, straight cath Giovani Pearce DO LAB MICROBIOLOGY - GENERAL ORDERABLES Final Result MELISA [facility] Department of Laboratories [place], [place] [id number] * (ABNORMAL) Urinalysis, microscopic only (10/31/2024 3:58 PM CDT) WBC, ur 21-50(A) 0 - 5 /HPF Comment:Testing performed by : [address] [address] RBC, ur 6-10(A) 0 - 2 /HPF MELISA Comment:Testing performed by : [address] [address] Epithelial cells, squamous, ur 11-20(A) 0 - 5 /HPF MELISA Comment:Testing performed by : [address] [address] Mucous, ur Present(A) MELISA Comment:Testing performed by : [facility], [address] [place] [address]., [address] Culture Reflex Comment Reflex to urine culture will be performed. MELISA Comment:Testing performed by : [facility], [address] [place] [address]., [address] Urine 10/31/2024 3:58 PM CDT 10/31/2024 4:02 PM CDT [facility] LAB URINE ORDERABLES Final Result Performing Organization Address City/[facility] Co de Phone Number [place] [id number] [facility] [place] [address] * (ABNORMAL) Urine culture Urine (10/31/2024 3:58 PM CDT) Report Final Report: Growth indicates contamination with mixed bacterial yasmeen. Please submit a new specimen with special attention given to the collection process and to prompt transport to the laboratory. (.) Comment:Testing performed by : [facility], [address] [facility] [place] [address] Organism GROWTH INDICATES CONTAMINATION WITH MIXED YASMEEN. MELISA Urine 10/31/2024 3:58 PM CDT 10/31/2024 10:20 PM CDT Narrative MELISA - 11/02/2024 6:21 AM CDT Urine culture reflexed based upon urinalysis results. Testing performed by [facility] Microbiology Laboratory ([phone]) [facility] MICROBIOLOGY - GENERAL ORDERABLES Final Result Performing Organization Address City/[facility]/ZIP Co de Phone Number [address] [place] [address] * eGFR (10/31/2024 3:57 PM CDT) eGFR [...] was last reviewed 2021. Testing performed by: [address] [address] Blood 10/31/2024 3:57 PM CDT 10/31/2024 4:02 PM CDT Giovani Pearce DO LAB BLOOD ORDERABLES Final Result [facility] [address] [facility] Department [place] [address] * Differential, auto (10/31/2024 3:57 PM CDT) Neutrophil abs 4.27 1.50 - 6.50 K/cumm Comment:Testing performed by : [address] [address] Imm gran abs 0.02 0.00 - 0.10 K/cumm MELISA Comment:Testing performed by : [address] [address] Lymphocyte abs 1.73 0.80 - 3.30 K/cumm MELISA Comment:Testing performed by : [address] [address] Monocyte abs 0.68 0.20 - 0.80 K/cumm MELISA Comment:Testing performed by : [address] [address] Eosinophil abs 0.14 0.00 - 0.50 K/cumm [facility] Comment:Testing performed by : [address] [address] Basophil abs 0.03 0.00 - 0.10 K/cumm [facility] Comment:Testing performed by : [address] [address] Neutrophil pct 62.2 % [facility] Comment: Interpretive Data Percent cell count reference ranges are not reported, since discordance with absolute values may lead to misinterpretation of CBC data. Current Interpretive Data was last revised on 2017. Testing performed by: [address] [address] Imm gran pct 0.3 % [facility] Comment: Interpretive Data Percent cell count reference ranges are not reported, since discordance with absolute values may lead to misinterpretation of CBC data. Current Interpretive Data was last revised on 2017. Testing performed by: [address] [address] Lymphocyte pct 25.2 % [facility] Comment: Interpretive Data Percent cell count reference ranges are not reported, since discordance with absolute values may lead to misinterpretation of CBC data. Current Interpretive Data was last revised on 2017. Testing performed by: [address] [address] Monocyte pct 9.9 % [facility] Comment: Interpretive Data Percent cell count reference ranges are not reported, since discordance with absolute values may lead to misinterpretation of CBC data. Current Interpretive Data was last revised on 2017. Testing performed by: [address] [address] Eosinophil pct 2.0 % [facility] Comment: Interpretive Data Percent cell count reference ranges are not reported, since discordance with absolute values may lead to misinterpretation of CBC data. Current Interpretive Data was last revised on 2017. Testing performed by: [address] [address] Basophil pct 0.4 % [facility] Comment: Interpretive Data Percent cell count reference ranges are not reported, since discordance with absolute values may lead to misinterpretation of CBC data. Current Interpretive Data was last revised on 2017. Testing performed by: [address] [address] Blood 10/31/2024 3:57 PM CDT 10/31/2024 4:02 PM CDT Giovani Pearce LAB BLOOD ORDERABLES Final Result MELISA [address] [facility] Department [place] [address] * (ABNORMAL) CBC with auto differential (10/31/2024 3:57 PM CDT) WBC 6.87 3.80 - 9.90 K/cumm Comment:Testing performed by : [address] [address] Hgb 13.5 13.0 - 17.5 g/dL MELISA Comment:Testing performed by : [address] [address] Hct 38.7(L) 38.9 - 50.3 % MELISA Comment:Testing performed by : [address] [address] Plt 215 150 - 400 K/cumm MELISA Comment:Testing performed by : [address] [address] MPV 9.9 9.1 - 12.3 fL MELISA Comment:Testing performed by : [address] [address] RBC 4.12(L) 4.30 - 5.80 M/cumm MELISA Comment:Testing performed by : [address] [address] MCV 93.9 81.3 - 96.4 fL MELISA RIZZO Comment:Testing performed by : [address] [address] MCH 32.8 27.1 - 33.3 pg MELISA RIZZO Comment:Testing performed by : [address] [address] MCHC 34.9 32.3 - 35.7 g/dL MELISA RIZZO Comment:Testing performed by : [address] [address] RDW CV 12.4 11.1 - 14.9 % MELISA RIZZO Comment:Testing performed by : [address] [address] RDW SD 42.8 35.7 - 48.1 fL MELISA RIZZO Comment:Testing performed by : [address] [address] NRBC abs 0.00 0.00 - 0.01 K/cumm MELISA RIZZO Comment:Testing performed by : [address] [address] Blood 10/31/2024 3:57 PM CDT 10/31/2024 4:02 PM CDT Giovani Pearce DO LAB BLOOD ORDERABLES Final Result MELISA [address] Department [place] [address] * (ABNORMAL) Comprehensive metabolic panel (10/31/2024 3:57 PM CDT) Sodium 137 135 - 145 mmol/L Comment:Testing performed by : [address] [address] Potassium, pl 3.9 3.3 - 4.9 mmol/L MELISA RIZZO Comment:Testing performed by : [address] [address] Chloride 100 97 - 110 mmol/L MELISA RIZZO Comment:Testing performed by : [address] [address] CO2 26 22 - 32 mmol/L MELISA RIZZO Comment:Testing performed by : [address] [address] Anion gap 11 2 - 15 mmol/L MELISA RIZZO Comment:Testing performed by : [address] [address] BUN 15 6 - 25 mg/dL MELISA RIZZO Comment:Testing performed by : [address] [address] Creatinine 0.33(L) 0.80 - 1.30 mg/dL MELISA Comment:Testing performed by : [address] [address] Glucose 129 70 - 199 mg/dL MELISA Comment: Interpretive [...] was last revised 2022. Testing performed by: [address] [address] Calcium 10.4(H) 8.5 - 10.3 mg/dL MELISA Comment:Testing performed by : [address] [address] Bilirubin, total 0.6 0.1 - 1.2 mg/dL MELISA Comment:Testing performed by : [address] [address] Protein, pl 7.4 6.5 - 8.5 g/dL MELISA Comment:Testing performed by : [address] [address] Albumin 4.3 3.5 - 5.0 g/dL MELISA Comment:Testing performed by : [address] [address] Alk phos 85 40 - 130 Units/L MELISA Comment:Testing performed by : [address] [address] ALT 40 7 - 55 Units/L MELISA Comment:Testing performed by : [address], [address] AST 26 10 - 50 Units/L MELISA Comment:Testing performed by : [address] [place] [address] Blood 10/31/2024 3:57 PM CDT 10/31/2024 4:02 PM CDT Giovani Pearce DO LAB BLOOD ORDERABLES Final Result MELISA [id number] [facility] Department [place] [address] * (ABNORMAL) POCT urinalysis dipstick (10/28/2024 2:34 PM CDT) Color, Urine, POC Yellow Clarity, ur, POC Cloudy(A) Clear Glucose, ur, POC Negative Negative MG/DL Bilirubin, ur, POC Negative Negative, Small, Moderate, Large Ketones, ur, POC Negative Negative Specific [place], POC 1.020 1.003 - 1.030 Blood, ur, POC Hemolyzed, trace(A) Negative pH, ur, POC 6.0 5.0 - 8.0 Protein, ur, POC Negative Negative Urobilinogen, urine, POC 0.2 0.2 - 1.0 mg/dL Nitrite, ur, POC Negative Negative Leukocytes, ur, POC Small(A) Negative Lot Number [id number] Urine 10/28/2024 2:34 PM CDT Misty Jewell [...] Enterococcus faecalis (.) Comment:Testing performed by : [facility], [address] [facility], [place]., [address] Organism PSEUDOMONAS AERUGINOSA CERNER CH Organism PSEUDOMONAS AERUGINOSA CERNER CH Organism ENTEROCOCCUS FAECALIS CERNER Urine, suprapubic catheter 10/28/2024 2:33 PM CDT 10/29/2024 12:02 AM CDT Narrative MELISA FRENCH - 10/31/2024 12:34 PM CDT Testing performed by [facility] Microbiology Laboratory ([phone]) Organism Antibiotic Method Susceptibility Pseudomonas aeruginosa Aztreonam [...] Enterococcus faecalis Nitrofurantoin (EFRAIN) INTERPRETAT ION Susceptible us Misty Jewell NP LAB MICROBIOLOGY - GENERAL ORDERABLES Final Result MELISA [id number] Department [place] [address] * PSA screen (04/12/2023 3:24 AM CDT) PSA-Total 1.99 <=3.90 ng/mL MELISA Comment: Interpretive Data AGE SEX REFERENCE INTERVAL [...] last revised 21. Testing performed by: [facility], [address] [place] [address]., [address] Blood 04/12/2023 3:24 AM CDT 04/12/2023 3:39 AM CDT us Rasheed Kumari MD LAB BLOOD ORDERABLES Final R esult MELISA MH [id number] [facility] Department [place] [address] from Last 3 Months or Most Recently Relevant to Health Maintenance Additional Health Concerns Infection Onset Date Last Indicated MDR gram neg/ESBL 10/28/2024 10/28/[address] [place] [address] [facility] [place] [address] [facility] [place] [address] [employer] [facility] [place] [address] [facility] [employer] [employer] Advance Directives For more information, please contact: [phone] * Full Code (Latest Code Status on [...] 12:57 AM 10/11/2023 7:59 PM Care Teams Salesforce Specialist Relationship Specialty Start Date End Date Pranav Jones MD PCP - General 01/10/17 Sandra Frazier, OT Occupational Therapist Occupational Therapy 01/07/18 Madhuri Abdul DPT [id number] [place] [id number] Physical Therapist Physical Therapy 12/20/21
== END 2024-12-19 13:52 | disposition home or self-care (01) ==
PROVIDERS: PCP Internal Medicine; Visit Provider Physician Assistant Surgical
DX: M75.01 Adhesive capsulitis of right shoulder (principal); M25.511 Pain in right shoulder
CPT/HCPCS: 20610; 77002; J1010; J2003